=== PATIENT | female | born 1940 | race Caucasian/White ===

== ENCOUNTER 2022-08-22 11:47 | Emergency (ER) | payer MEDICARE ==
--- NOTE | 2022-08-22 11:55 | ERPHSYRPT ---
- History of Present Illness Time Seen by Provider: 08/22/22 11:54 Source: patient, family Exam Limitations: no limitations Physician History: This is an 82-year-old white female patient of Dr. Xiao who has a history of seasonal allergies and 4 days ago she began having some coughing issues. She was seen in outpatient clinic and it appears that she was given an injection of Kenalog and possibly an antibiotic injection. No other medications were provided to her or prescribed her per patient's spouse report patient does not ordinarily talk. Her main issue is coughing and shortness of breath while she is coughing. She denies abdominal pain. She denies chest pain. She has not had any vomiting or diarrhea. However, patient's spouse states that she has had a decrease in her appetite and oral intake Timing/Duration: day(s) (4) Severity: mild (To moderate) Modifying Factors: Improves With: nothing Associated Symptoms: shortness of breath (When coughing), cough, No nausea, No vomiting, No abdominal pain, No chest pain Allergies/Adverse Reactions: azithromycin [From Zithromax Z-Ankit] Allergy (Severe, Verified 08/22/22 11:59) Tightness of Throat Penicillins Allergy (Severe, Verified 08/22/22 11:59) Tightness of Throat xanthan gum Allergy (Verified 08/22/22 12:04) xylitol Allergy (Verified 08/22/22 12:04) Home Medications: Cetirizine HCl [Zyrtec] 5 mg PO DAILY 05/24/16 [History] Clotrimazole/Betamethasone Dip [Clotrimazole-Betamethasone Crm] 15 gm TP DAILY 05/24/16 [History] Diphenhydramine HCl 25 mg [Benadryl 25 mg Capsule] 50 mg PO Q4-6HPRN PRN 05/24/16 [History] Montelukast Sodium 10 mg PO DAILY 05/24/16 [History] Nystatin 500,000 unit PO 5XD 05/24/16 [History] Tetrahydrozoline HCl [Eye Drops] 15 ml OP DAILY 05/24/16 [History] EPINEPHrine [Epipen] 0.3 ml SQ UD PRN 05/30/16 [History] Calcium Carb, Citrate/Vit D3 [Calcium + D3 ER Tablet] 1 tab PO BID 08/22/22 [History] Levocetirizine Dihydrochloride [Xyzal] 1 tab PO DAILY 08/22/22 [History] Mecobalamin [B12 Active] 1 tab PO BID 08/22/22 [History] Metformin HCl 500 mg [Glucophage 500 MG] 1 tab PO BID 08/22/22 [History] Simvastatin 10 mg [Zocor 10MG] 1 tab PO DAILY 08/22/22 [History] Vit C/E/Zn/Coppr/Lutein/Zeaxan [Preservision Areds 2 Softgel] 1 cap PO BID 08/22/22 [History] Travel Risk - International Travel Have you traveled outside of the country in past 3 weeks: No - Coronavirus Screening Are you exhibiting any of the following symptoms?: Yes Symptoms: Cough: New Onset, Shortness of Breath (When coughing) Close contact with a COVID-19 positive Pt in past 14-21 Days: No - Review of Systems Constitutional: Weakness Eyes: No Symptoms Ears, Nose, & Throat: Hoarse Respiratory: Cough Cardiac: No Symptoms, No Chest Pain Abdominal/Gastrointestinal: Appetite Changes, No Abdominal Pain, No Nausea, No Vomiting, No Diarrhea Genitourinary Symptoms: No Symptoms Musculoskeletal: No Symptoms Skin: No Symptoms Neurological: No Symptoms Psychological: No Symptoms Endocrine: No Symptoms Hematologic/Lymphatic: No Symptoms Immunological/Allergic: No Symptoms All Other Systems: Reviewed and Negative - Past Medical History Pertinent Past Medical History: Yes Neurological History: No Pertinent History ENT History: No Pertinent History Cardiac History: No Pertinent History Respiratory History: Other Endocrine Medical History: No Pertinent History Musculoskeletal History: No Pertinent History GI Medical History: No Pertinent History History: No Pertinent History Psycho-Social History: No Pertinent History Female Reproductive Disorders: No Pertinent History Other Medical History: pt has severe allergies. - Past Surgical History Past Surgical History: Yes Neuro Surgical History: No Pertinent History Cardiac: No Pertinent History Respiratory: No Pertinent History Gastrointestinal: Appendectomy Genitourinary: No Pertinent History Musculoskeletal: No Pertinent History Female Surgical History: Hysterectomy, Other Other Surgical History: Anterior and posterior colphoraphy - Social History Smoking Status: Never smoker Exposure to second hand smoke: No Drug Use: none - Nursing Vital Signs Nursing Vital Signs: Initial Vital Signs Temperature 97.9 F 08/22/22 12:04 Pulse Rate 90 08/22/22 12:04 Respiratory Rate 24 08/22/22 12:04 Blood Pressure 125/54 08/22/22 12:04 O2 Sat by Pulse Oximetry 95 08/22/22 12:04 Pain Scale Pain Intensity 0 - Physical Exam General Appearance: no apparent distress, alert, anxiety Eye Exam: PERRL/EOMI, eyes nml inspection Ears, Nose, Throat Exam: normal ENT inspection, moist mucous membranes Neck Exam: normal inspection, non-tender Respiratory Exam: normal breath sounds, lungs clear, airway intact, No chest tenderness, No respiratory distress Cardiovascular Exam: regular rate/rhythm, normal heart sounds, normal peripheral pulses Gastrointestinal/Abdomen Exam: soft, normal bowel sounds, No tenderness Pelvic Exam: not done Rectal Exam: not done Back Exam: normal inspection, normal range of motion, No CVA tenderness, No vertebral tenderness Extremity Exam: normal inspection, normal range of motion, pelvis stable Neurologic Exam: alert, oriented x 3, cooperative, environmental resource specialist II-XII nml as tested, normal mood/affect, nml cerebellar function, nml station & gait, sensation nml Skin Exam: normal color, warm, dry Lymphatic Exam: No adenopathy SpO2 Interpretation: normal O2 Delivery: Room Air Ordered Tests: Active Orders 24 hr Category Date Time Status Senior Lead Project Manager STAT Care 08/22/22 12:20 Active IV Insertion STAT Care 08/22/22 12:20 Active Pulse Oximetry (ED) STAT Care 08/22/22 12:20 Active CHEST 1 VIEW (PORTABLE) Stat Exams 08/22/22 12:20 Completed BLOOD CULTURE Stat Lab 08/22/22 12:35 Received CBC W DIFF Stat Lab 08/22/22 13:20 Completed CMP Stat Lab 08/22/22 13:00 Completed Manual Differential NC Stat Lab 08/22/22 13:20 Completed NT PRO BNPII Stat Lab 08/22/22 13:00 Completed UA W/RFX UR CULTURE Stat Lab 08/22/22 14:18 Completed Medication Summary Generic Name Dose Route Start Last Admin Trade Name Freq PRN Reason Stop Dose Admin Sodium Chloride 1,000 mls @ 100 mls/hr 08/22/22 12:30 08/22/22 16:06 Sodium Chloride 0.9% 1000 Ml IV 09/21/22 12:29 999 mls/hr .Q10H LELA Infusion Sodium Chloride 500 mls @ 50 mls/hr 08/22/22 15:45 Sodium Chloride 0.9% 500 Ml IV 09/21/22 15:44 .Q10H LELA Discontinued Medications Generic Name Dose Route Start Last Admin Trade Name [place] PRN Reason Stop Dose Admin Hydrocodone Bitart/Acetaminophen 5 ml 08/22/22 12:21 08/22/22 12:28 Hydrocodone/Acetaminophen 5 Ml Udcup PO 08/22/22 12:22 5 ml STAT STA Administration Hydrocodone Bitart/Acetaminophen Confirm 08/22/22 12:25 Hydrocodone/Acetaminophen 5 Ml Udcup Administered 08/22/22 12:26 Dose 5 ml .ROUTE .STK-MED ONE Methylprednisolone Sodium 0 mg 08/22/22 12:20 08/22/22 12:27 Succinate 125 mg/ Sterile IV 08/22/22 12:21 125 mg Water 2 ml STAT ONE Administration Sodium Chloride 1,000 mls @ 999 mls/hr 08/22/22 15:16 08/22/22 15:44 Sodium Chloride 0.9% 1000 Ml IV 08/22/22 16:16 Not Given .Q1H1M STA Levofloxacin 500 mg 08/22/22 16:20 Levofloxacin 500 Mg Tablet PO 08/22/22 16:21 STAT ONE Methylprednisolone Sodium Succinate Confirm 08/22/22 12:25 Methylprednis Sod Succ 125 Mg/2 Ml Vial Administered 08/22/22 12:26 Dose 125 mg .ROUTE .STK-MED ONE Potassium Chloride 10 meq 08/22/22 16:26 Potassium Chloride Tab 10 Meq Tab PO 08/22/22 16:27 STAT ONE Sterile Water Confirm 08/22/22 12:25 Water For Injection,Sterile 10 Ml Vial Administered 08/22/22 12:26 Dose 10 ml IJ .STK-MED ONE Lab/Rad Data: Laboratory Result Diagrams 08/22/22 13:20 08/22/22 13:00 Laboratory Results 08/22/22 08/22/22 08/22/22 Range/Units 14:18 13:20 13:00 WBC 13.6 H (4.0-10.5) x10^3/uL RBC 4.26 (4.1-5.4) x10^6/uL Hgb 12.7 (12.0-16.0) g/dL Hct 37.3 (35-47) % MCV 87.6 (78-100) fL MCH 29.8 (26-32) pg MCHC 34.0 (32-36) g/dL RDW 12.2 (11.5-14.0) % Plt Count 553 H (150-450) x10^3/uL MPV 9.8 (7.5-11.0) fL Segmented Neutrophils 71 H (36.0-66.0) % Band Neutrophils 3 H (0.0-2.0) % Lymphocytes (Manual) 12 L (24-44) % Monocytes (Manual) 13 H (0.0-12.0) % Eosinophils (Manual) 1 (0.00-3.0) % Platelet Estimate INCREASED (NORMAL) RBC Morphology NORMAL Sodium (137-145) mmol/L Potassium (3.5-5.1) mmol/L Chloride (98-107) mmol/L Carbon Dioxide (22-30) mmol/L Anion Gap (5-15) MEQ/L BUN (7-17) mg/dL Creatinine (0.52-1.04) mg/dL Estimated GFR ML/MIN Glucose (74-106) mg/dL Calcium (8.4-10.2) mg/dL Total Bilirubin (0.2-1.3) mg/dL AST (14-36) U/L ALT (0-35) U/L Alkaline Phosphatase (38-126) U/L NT-Pro-B Natriuret Pep (<300) pg/mL Serum Total Protein (6.3-8.2) g/dL Albumin (3.5-5.0) g/dL Urine Color Yellow (Yellow) Urine Appearance Clear (Clear) Urine pH 5.5 (4.6-8.0) Ur Specific [place] 1.015 (1.005-1.030) Urine Protein 30 (Negative) Urine Glucose (UA) Negative (Negative) mg/dL Urine Ketones 40 A (Negative) Urine Blood Negative (Negative) Urine Nitrite Negative (Negative) Urine Bilirubin Negative (Negative) Urine Urobilinogen 1.0 A (0.2) mg/dL Ur Leukocyte Esterase Trace A (Negative) U Hyaline Cast (Auto) 3-5 A (0-2) /LPF Urine Microscopic RBC 0-2 (0-5) /HPF Urine Microscopic WBC 0-2 (0-5) /HPF Ur Epithelial Cells Few (None Seen) /HPF Urine Bacteria None Seen (None Seen) /HPF Urine Culture Reflexed NO (NO) Influenza Type A Ag NEGATIVE (NEGATIVE) Influenza Type B Ag NEGATIVE (NEGATIVE) RSV (PCR) NEGATIVE (Negative) SARS-CoV-2 (PCR) NEGATIVE (NEGATIVE) 08/22/22 08/22/22 Range/Units 13:00 13:00 WBC (4.0-10.5) x10^3/uL RBC (4.1-5.4) x10^6/uL Hgb (12.0-16.0) g/dL Hct (35-47) % MCV (78-100) fL MCH (26-32) pg MCHC (32-36) g/dL RDW (11.5-14.0) % Plt Count (150-450) x10^3/uL MPV (7.5-11.0) fL Segmented Neutrophils (36.0-66.0) % Band Neutrophils (0.0-2.0) % Lymphocytes (Manual) (24-44) % Monocytes (Manual) (0.0-12.0) % Eosinophils (Manual) (0.00-3.0) % Platelet Estimate (NORMAL) RBC Morphology Sodium 129 L (137-145) mmol/L Potassium 3.2 L (3.5-5.1) mmol/L Chloride 92 L (98-107) mmol/L Carbon Dioxide 19 L (22-30) mmol/L Anion Gap 22.1 H (5-15) MEQ/L BUN 29 H (7-17) mg/dL Creatinine 0.84 (0.52-1.04) mg/dL Estimated GFR > 60.0 ML/MIN Glucose 108 H (74-106) mg/dL Calcium 9.7 (8.4-10.2) mg/dL Total Bilirubin 1.00 (0.2-1.3) mg/dL AST 35 (14-36) U/L ALT 29 (0-35) U/L Alkaline Phosphatase 106 (38-126) U/L NT-Pro-B Natriuret Pep 5770 (<300) pg/mL Serum Total Protein 7.8 (6.3-8.2) g/dL Albumin 3.8 (3.5-5.0) g/dL Urine Color (Yellow) Urine Appearance (Clear) Urine pH (4.6-8.0) Ur Specific [place] (1.005-1.030) Urine Protein (Negative) Urine Glucose (UA) (Negative) mg/dL Urine Ketones (Negative) Urine Blood (Negative) Urine Nitrite (Negative) Urine Bilirubin (Negative) Urine Urobilinogen (0.2) mg/dL Ur Leukocyte Esterase (Negative) U Hyaline Cast (Auto) (0-2) /LPF Urine Microscopic RBC (0-5) /HPF Urine Microscopic WBC (0-5) /HPF Ur Epithelial Cells (None Seen) /HPF Urine Bacteria (None Seen) /HPF Urine Culture Reflexed (NO) Influenza Type A Ag (NEGATIVE) Influenza Type B Ag (NEGATIVE) RSV (PCR) (Negative) SARS-CoV-2 (PCR) (NEGATIVE) - Progress Progress: improved Progress Note: 08/22/22 13:37 Chest x-ray radiology report reviewed by me. There is bilateral mid to lower lung airspace disease without consolidation or effusions. 08/22/22 16:21 Patient is tolerating clear liquid diet. This patient's medical issue is 1 of moderate complexity. The patient past medical history, medication list, and medication allergy list was reviewed. The work-up was based on the above as well as taking into consideration the history of present illness and physical findings on physical examination. The work-up included placement as of IV line, intravenous fluid infusion, drawing CBC, CMP, performing a chest x-ray and obtaining viral swabs. I reviewed all the results of all the studies that were performed. Based on this we opted to give the patient more intravenous fluids, give her oral fluid challenge and place her on oral Levaquin. She is to continue the oral Levaquin as an outpatient. We will also provide her with a prescription for hydrocodone elixir to help with her cough. Counseled pt/family regarding: lab results, diagnosis, need for follow-up, rad results Medical Desision Making - Independent Historian Additional History obtained from: Spouse - Discussion of managment Reviewed:: Test results Agreed on:: Treatment plan, need for follow-up - Diagnostic Testing Diagnostic test were ordered, analyzed, and reviewed by me: Yes Radiological Interpretation: Interpreted by me, Reviewed by me, Teleradiologist Report - Risk of complications Minimal Risk: Minimal risk of morbidity Low Risk: Low risk of morbidity from additional dx testing or treatment The pt has a mod risk of morbidity or mortality based on: Need for prescription drug management - Departure Departure Disposition: Home Clinical Impression: Bilateral pulmonary infiltrates on CXR Condition: Stable Critical Care Time: No Referrals: SACHIN XIAO [Primary Care Provider] - Follow up/PCP as directed Instructions: Pneumonia in Adults Additional Instructions: Drink plenty of clear liquids prior to advancing your diet. Take your medication as prescribed. Follow-up with your primary care provider for further evaluation and management. Prescriptions: Hydrocodone/Acetaminophen [Hydrocodone-Acetamn 7.5-325/15] 5 ml PO Q12H PRN PRN #30 ml MDD 10 ml PRN Reason: Cough Levofloxacin [Levaquin 500 MG Tablet] 500 mg PO DAILY #7 tablet
[2022-08-22] MEDS ORDERED: solu-MEDROL 125 MG, Sterile H2O 10 ml 2 ML IV ONE ×2 (12:20)
[2022-08-22] MEDS ORDERED: HYDROCODONE-ACETAMIN 2.5-108/5 ML SOLUTION PO STA (12:21)
[2022-08-22] MEDS ORDERED: Sterile H2O 10 ml IJ ONE (12:25)
[2022-08-22] MEDS ORDERED: HYDROCODONE-ACETAMIN 2.5-108/5 ML SOLUTION ONE (12:25)
[2022-08-22] MEDS ORDERED: solu-MEDROL ONE (12:25)
[2022-08-22] MEDS ORDERED: Sodium Chloride 0.9% 1000 ML 1,000 ML ONE (12:25)
[2022-08-22] MEDS ORDERED: Sodium Chloride 0.9% 1000 ML 1,000 ML IV SCH (12:30)
--- NOTE | 2022-08-22 13:04 | XRAY ---
Indication: Cough. Comparison: None Portable chest demonstrates bilateral mid to lower lung airspace disease without consolidation/large effusion. Incidental right base calcified granuloma. Heart not enlarged. Bony thorax intact with osteopenia.
[2022-08-22 13:14] LABS: Hematocrit 37.3 % (35-47); Hemoglobin 12.7 g/dL (12.0-16.0); Mean Cell Volume 87.6 fL (78-100); Mean Corpuscular Hemoglobin 29.8 pg (26-32); Mean Platelet Volume 9.8 fL (7.5-11.0); Platelet Count 553 x10^3/uL (150-450); Red Blood Count 4.26 x10^6/uL (4.1-5.4); Red Cell Distribution Width 12.2 % (11.5-14.0); White Blood Count 13.6 x10^3/uL (4.0-10.5)
[2022-08-22 13:32] LABS: ALBUMIN 3.8 g/dL (3.5-5.0); ALKALINE PHOSPHATASE 106 U/L (38-126); ANION GAP 22.1 MEQ/L (5-15); BLOOD UREA NITROGEN 29 mg/dL (7-17); CHLORIDE 92 mmol/L (98-107); Calcium 9.7 mg/dL (8.4-10.2); Carbon Dioxide 19 mmol/L (22-30); Creatinine 1 0.84 mg/dL (0.52-1.04); EST GLOMERULAR FILTRATION RATE > 60.0 ML/MIN; Glucose 108 mg/dL (74-106); Potassium 3.2 mmol/L (3.5-5.1); SGOT/AST 35 U/L (14-36); SGPT/ALT 29 U/L (0-35); SODIUM 129 mmol/L (137-145); Total Protein 7.8 g/dL (6.3-8.2)
[2022-08-22 14:00] LABS: INFLUENZA A NEGATIVE (NEGATIVE); INFLUENZA B NEGATIVE (NEGATIVE); RESPIRATORY SYNCTIAL VIRUS NEGATIVE (Negative); SARS-CoV-2 Xpert Express NEGATIVE (NEGATIVE)
[2022-08-22 14:39] LABS: Appearance Clear (Clear); Bacteria None Seen /HPF (None Seen); Bilirubin Negative (Negative); Blood Negative (Negative); Epithelial Cells Few /HPF (None Seen); Glucose, Urine Negative (Negative); Ketones 40 (Negative); Leukocyte Esterase Trace (Negative); Nitrite Negative (Negative); Ph 5.5 (4.6-8.0); Protein,Urine Dip 30 (Negative); RBC 0-2 /HPF (0-5); Specific Gravity 1.015 (1.005-1.030); WBC 0-2 /HPF (0-5)
[2022-08-22 15:00] LABS: ADD URINE CULTURE? NO (NO)
[2022-08-22] MEDS ORDERED: Sodium Chloride 0.9% 1000 ML 1,000 ML IV STA (15:16)
[2022-08-22 15:17] LABS: BAND 3 % (0.0-2.0); Eosinophil 1 % (0.00-3.0); Lymphocytes 12 % (24-44); Monocyte 13 % (0.0-12.0); Neutrophils 71 % (36.0-66.0); Platelet Estimate INCREASED (NORMAL); Total Cells Counted 100
[2022-08-22] MEDS ORDERED: Sodium Chloride 0.9% 500 ML 500 ML IV SCH (15:45)
[2022-08-22] MEDS ORDERED: Sodium Chloride 0.9% 500 ML 500 ML IV ONE (15:59)
[2022-08-22] MEDS ORDERED: Levofloxacin 500 MG Tablet PO ONE (16:20)
[2022-08-22] MEDS ORDERED: Klor Con PO ONE ×2 (16:26→16:50)
[2022-08-22] MEDS ORDERED: Levofloxacin 500 MG Tablet ONE (16:49)
[2022-08-22 17:11] VITALS: BP 122/58; PULSE 82; O2SAT 95
== END 2022-08-22 17:54 | disposition home or self-care (01) ==
LOC: ED 11:47
DX: R91.8 Other nonspecific abnormal finding of lung field (principal); R05.1 Acute cough; R06.02 Shortness of breath; Z79.891 Long term (current) use of opiate analgesic; Z79.84 Long term (current) use of oral hypoglycemic drugs; Z79.899 Other long term (current) drug therapy
CPT/HCPCS: 0241U; 36000; 36415; 71045; 80053; 81001; 83880; 85025; 87040; 93041; 94760; 96360; 96374; 99284; J2930; A9270-GY

== ENCOUNTER 2022-08-25 16:11 | Inpatient (IN) | payer MEDICARE ==
[2022-08-25] MEDS ORDERED: DUONEB 0.5-3 MG/3 ml Neb IH ONE ×2 (16:37→16:39)
--- NOTE | 2022-08-25 16:49 | XRAY ---
Indication: Cough. Comparison: August 22, 2022 Portable chest demonstrates worsening diffuse bilateral airspace disease with new left lung patchy consolidations. Heart not enlarged. Bony thorax intact again without osteopenia.
[2022-08-25] MEDS ORDERED: Cardizem IV 50 MG/10 ML IV ONE ×3 (16:51→17:54)
[2022-08-25] MEDS ORDERED: ROCEPHIN 1 Gm-D5w 50 ml Bag** 1 G/50 ML IVPB IV STA (17:02)
[2022-08-25] MEDS ORDERED: ROCEPHIN 1 Gm-D5w 50 ml Bag** 1 G/50 ML IVPB IV ONE (17:03)
--- NOTE | 2022-08-25 17:10 | ERPHSYRPT ---
- History of Present Illness Source: patient, other () Exam Limitations: no limitations Patient Subjective Stated Complaint: Pt was here 2 days ago for a cough and returns again today, pt is unable to keep her oxygen up and was placed on 3L NC Triage Nursing Assessment: Pt was brought to the ER by her , tachycardic, hypoxic, rates pain as 5/10 in the chest when she coughs, weak, placed on 3L NC but does not wear oxygen at home, is taking Levofloxacin that was prescribed a couple of days ago but has ran out of the hydrocodone cough syrup, states that she does get up some sputum and it is clear, no edema, pulses normal, denies N&V Physician History: 82 yo WF w worsening cough and increasing dyspnea. Dyspnea is worse w exertion. Pt was seen in the ER on 08/22/22 and diagnosed w pneumonia. She was started on Levaquin. Symptoms started 15 days ago. Pt denies chest pain/nausea/vomiting/diarrhea/fever/melena/hematochezia. Timing/Duration: other (15 days) Cough Quality/Degree: productive cough Possible Cause: occasional episodes Modifying Factors: Improves With: activity, coughing Associated Symptoms: shortness of breath Allergies/Adverse Reactions: azithromycin [From Zithromax Z-Ankit] Allergy (Severe, Verified 08/25/22 16:36) Tightness of Throat Penicillins Allergy (Severe, Verified 08/25/22 16:36) Tightness of Throat xanthan gum Allergy (Verified 08/25/22 16:36) xylitol Allergy (Verified 08/25/22 16:36) Home Medications: Cetirizine HCl [Zyrtec] 5 mg PO DAILY 05/24/16 [History] Clotrimazole/Betamethasone Dip [Clotrimazole-Betamethasone Crm] 15 gm TP DAILY 05/24/16 [History] Diphenhydramine HCl 25 mg [Benadryl 25 mg Capsule] 50 mg PO Q4-6HPRN PRN 05/24/16 [History] Montelukast Sodium 10 mg PO DAILY 05/24/16 [History] Nystatin 500,000 unit PO 5XD 05/24/16 [History] Tetrahydrozoline HCl [Eye Drops] 15 ml OP DAILY 05/24/16 [History] EPINEPHrine [Epipen] 0.3 ml SQ UD PRN 05/30/16 [History] Calcium Carb, Citrate/Vit D3 [Calcium + D3 ER Tablet] 1 tab PO BID 08/22/22 [History] Levocetirizine Dihydrochloride [Xyzal] 1 tab PO DAILY 08/22/22 [History] Mecobalamin [B12 Active] 1 tab PO BID 08/22/22 [History] Metformin HCl 500 mg [Glucophage 500 MG] 1 tab PO BID 08/22/22 [History] Simvastatin 10 mg [Zocor 10MG] 1 tab PO DAILY 08/22/22 [History] Vit C/E/Zn/Coppr/Lutein/Zeaxan [Preservision Areds 2 Softgel] 1 cap PO BID 08/22/22 [History] Hx Tetanus, Diphtheria Vaccination/Date Given: Yes Hx Influenza Vaccination/Date Given: Yes Hx Pneumococcal Vaccination/Date Given: Yes Travel Risk - International Travel Have you traveled outside of the country in past 3 weeks: No - Coronavirus Screening Are you exhibiting any of the following symptoms?: Yes Symptoms: Cough: New Onset Close contact with a COVID-19 positive Pt in past 14-21 Days: No - Vaccine Status Have you recieved a Covid-19 vaccination: Yes 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 - Review of Systems Constitutional: No Symptoms, Fatigue, Malaise Eyes: No Symptoms Ears, Nose, & Throat: No Symptoms Respiratory: No Symptoms, Cough, Dyspnea, Dyspnea on Exertion (BLOCK) Cardiac: No Symptoms Abdominal/Gastrointestinal: No Symptoms Genitourinary Symptoms: No Symptoms Musculoskeletal: No Symptoms Skin: No Symptoms Neurological: No Symptoms Psychological: No Symptoms Endocrine: No Symptoms Hematologic/Lymphatic: No Symptoms Immunological/Allergic: No Symptoms - Past Medical History Pertinent Past Medical History: Yes Neurological History: No Pertinent History ENT History: No Pertinent History Cardiac History: No Pertinent History Respiratory History: Other Endocrine Medical History: No Pertinent History Musculoskeletal History: No Pertinent History GI Medical History: No Pertinent History History: No Pertinent History Psycho-Social History: No Pertinent History Female Reproductive Disorders: No Pertinent History Other Medical History: pt has severe allergies. - Past Surgical History Past Surgical History: Yes Neuro Surgical History: No Pertinent History Cardiac: No Pertinent History Respiratory: No Pertinent History Gastrointestinal: Appendectomy Genitourinary: No Pertinent History Musculoskeletal: No Pertinent History Female Surgical History: Hysterectomy, Other Other Surgical History: Anterior and posterior colphoraphy - Social History Smoking Status: Never smoker Exposure to second hand smoke: No Drug Use: none Patient Lives Alone: No - Nursing Vital Signs Nursing Vital Signs: Initial Vital Signs Temperature 96.7 F 08/25/22 16:21 Pulse Rate 159 H 08/25/22 16:21 Blood Pressure 128/83 08/25/22 16:21 O2 Sat by Pulse Oximetry 85 L 08/25/22 16:21 Pain Scale Pain Intensity 0 Hypoxic/Tachy-afib w RVR - Physical Exam General Appearance: mild distress Eye Exam: PERRL/EOMI, eyes nml inspection Ears, Nose, Throat Exam: normal ENT inspection, TMs normal, pharynx normal, moist mucous membranes Neck Exam: normal inspection, non-tender, supple, full range of motion, No meningismus, No mass, No Brudzinski, No Kernig's Respiratory Exam: crackles/rales (Rales 3/4 on R, 1/4 on L) Cardiovascular Exam: other (Afib w RVR(Ir-Ir)) Gastrointestinal/Abdomen Exam: soft, normal bowel sounds, No tenderness Back Exam: normal inspection, normal range of motion, No CVA tenderness, No vertebral tenderness Extremity Exam: normal inspection, normal range of motion Neurologic Exam: alert, oriented x 3, cooperative, 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, normal mood/affect, sensation nml, No motor deficits, No sensory deficit Skin Exam: normal color, warm, dry Lymphatic Exam: No adenopathy SpO2 Interpretation: hypoxic SpO2: 95 O2 Delivery: Nasal Cannula - Course Nursing assessment & vital signs reviewed: Yes EKG Interpreted by Me: RATE (Afib w RVR/Rate 144/Normal QT-Qtc/Non-specific ST-T wave changes) - Radiology Exams Chest X-ray Interpretation: Reviewed by me (Worsening B LL infiltrates), Discussed w/ radiologist - CT Exams Chest CT Interpretation: Discussed w/radiologist (B lower lobe infiltrates and effusions) Ordered Tests: Active Orders 24 hr Category Date Time Status Bedrest TOLERATED Activity 08/25/22 22:30 Active Admit as Inpatient ROUTINE Care 08/25/22 22:39 Active EKG-ER Only STAT Care 08/25/22 16:20 Active POCT Glucose Check ACHS Care 08/25/22 22:29 Active Telemetry PROTOCOL Care 08/25/22 22:30 Active Heart-Healthy Diet Diet 08/26/22 Breakfast Active CHEST 1 VIEW (PORTABLE) Routine Exams 08/25/22 22:29 Ordered CHEST 1 VIEW (PORTABLE) Stat Exams 08/25/22 16:21 Completed CHEST WITH CONTRAST [CT] Stat Exams 08/25/22 19:31 Completed ECHO W/2D AND DOPPLER [US] Stat Exams 08/25/22 22:36 Ordered ABG [ARTERIAL BLOOD GASES] Stat Lab 08/25/22 20:51 Completed BLOOD CULTURE Stat Lab 08/25/22 17:50 Received CBC W DIFF AM.LAB Lab 08/26/22 04:00 Ordered CBC W DIFF Stat Lab 08/25/22 17:05 Completed CMP AM.LAB Lab 08/26/22 04:00 Ordered CMP Stat Lab 08/25/22 17:05 Completed CULTURE,URINE Stat Lab 08/25/22 17:30 Received D-DIMER QUANTITATIVE Stat Lab 08/25/22 18:50 Completed Lactic Acid Stat Lab 08/25/22 16:45 Completed Manual Differential NC Stat Lab 08/25/22 17:05 Completed NT PRO BNPII AM.LAB Lab 08/26/22 04:00 Ordered NT PRO BNPII Stat Lab 08/25/22 17:05 Completed PROTIME WITH INR Stat Lab 08/25/22 17:05 Completed PTT Stat Lab 08/25/22 17:05 Completed Sputum Culture [CULTURE,SPUTUM] Stat Lab 08/25/22 Ordered TROPONIN Q4H Lab 08/25/22 17:05 Completed TROPONIN Q4H Lab 08/25/22 21:00 Completed TROPONIN Q4H Lab 08/26/22 00:30 Ordered UA W/RFX UR CULTURE Stat Lab 08/25/22 17:30 Completed Respiratory Therapy Assessment DAILY RT 08/25/22 17:03 Active Transfer Order Routine Transfer 08/25/22 Ordered Medication Summary Generic Name Dose Route Start Last Admin Trade Name Freq PRN Reason Stop Dose Admin Acetaminophen 650 mg 08/25/22 22:29 Acetaminophen 325 Mg Tablet PO 09/24/22 22:28 Q4H PRN PRN PAIN, FEVER, HEADACHE Albuterol/Ipratropium 3 ml 08/25/22 22:29 Ipratropium/Albuterol Sulfate 3 Ml Ampul.Neb 09/25/22 00:59 Q6HRT PRN SHORTNESS OF BREATH/WHEEZING Benzonatate 100 mg 08/25/22 23:00 Benzonatate 100 Mg Capsule PO 08/30/22 23:01 TID PRN LELA Docusate Sodium 100 mg 08/25/22 22:29 Docusate Sodium 100 Mg Capsule PO 09/24/22 22:28 BIDPRN PRN CONSTIPATION Enoxaparin Sodium 60 mg 08/26/22 10:00 Enoxaparin Sodium 40 Mg/0.4 Ml Syringe SQ 09/25/22 09:59 BID LELA Furosemide 20 mg 08/26/22 21:13 08/25/22 21:36 Furosemide 20 Mg/Vial IV 08/26/22 21:14 20 mg ONCE ONE Administration Doxycycline Hyclate 100 mg/ 100 mls @ 100 mls/hr 08/25/22 17:36 08/25/22 18:04 Dextrose IV 09/24/22 17:35 100 mls/hr Q12HT LELA Administration Diltiazem HCl 100 mls @ 5 mls/hr 08/25/22 18:37 08/25/22 20:43 Cardizem Drip 100 Mg/100 Ml D5w IV 09/24/22 18:36 10 mg/hr .Q20H PRN 10 mls/hr HEART RATE/ A-FIB Titration Protocol 5 MG/HR Cefepime HCl 2 g/ Dextrose 100 mls @ 200 mls/hr 08/25/22 22:45 IV 09/01/22 22:44 Q8H [facility] Vancomycin HCl 1 gm/ Sodium 250 mls @ 125 mls/hr 08/25/22 23:00 Chloride IV 09/01/22 22:59 Q12H [facility] Insulin Human Regular 0 unit 08/25/22 22:29 Insulin Regular, Human 1 Unit SQ 09/24/22 22:28 UD PRN HYPERGLYCEMIA Magnesium Hydroxide 30 ml 08/25/22 22:29 Magnesium Hydroxide 30 Ml Udcup PO 09/24/22 22:28 HS PRN PRN CONSTIPATION Metoprolol Tartrate 25 mg 08/25/22 22:36 Metoprolol Tartrate 25 Mg Tab PO 09/24/22 22:35 BID LELA Discontinued Medications Generic Name Dose Route Start Last Admin Trade Name Freq PRN Reason Stop Dose Admin Albuterol/Ipratropium 3 ml 08/25/22 16:37 08/25/22 16:52 Ipratropium/Albuterol Sulfate 3 Ml Ampul.Neb IH 08/25/22 16:38 3 ml STAT ONE Administration Albuterol/Ipratropium Confirm 08/25/22 16:39 Ipratropium/Albuterol Sulfate 3 Ml Ampul.Neb Administered 08/25/22 16:40 Dose 3 ml IH .STK-MED ONE Digoxin 0.25 mg 08/25/22 20:24 08/25/22 20:31 Digoxin 0.5 Mg/2 Ml Injection IV 08/25/22 20:25 0.25 mg STAT ONE Administration Digoxin Confirm 08/25/22 20:28 Digoxin 0.5 Mg/2 Ml Injection Administered 08/25/22 20:29 Dose 0.5 mg .ROUTE .STK-MED ONE Digoxin 0.25 mg 08/25/22 21:10 Digoxin 0.5 Mg/2 Ml Injection IV 08/25/22 21:11 STAT ONE Digoxin 0.25 mg 08/25/22 21:29 08/25/22 22:40 Digoxin 0.5 Mg/2 Ml Injection IV 08/25/22 21:30 Not Given STAT ONE Diltiazem HCl 10 mg 08/25/22 16:51 08/25/22 16:54 Diltiazem Hcl Iv 5 Mg/Ml Vial IV 08/25/22 16:52 10 mg STAT ONE Administration Diltiazem HCl Confirm 08/25/22 16:52 Diltiazem Hcl Iv 5 Mg/Ml Vial Administered 08/25/22 16:53 Dose 50 mg IV .STK-MED ONE Diltiazem HCl 10 mg 08/25/22 17:54 08/25/22 18:03 Diltiazem Hcl Iv 5 Mg/Ml Vial IV 08/25/22 17:55 10 mg STAT ONE Administration Doxycycline Hyclate Confirm 08/25/22 17:54 Doxycycline Hyclate 100 Mg/Vial Injection Administered 08/25/22 17:55 Dose 100 mg IV .STK-MED ONE Enoxaparin Sodium 60 mg 08/25/22 22:04 08/25/22 22:56 Enoxaparin Sodium 60 Mg/0.6 Ml Syringe SQ 08/25/22 22:05 60 mg STAT ONE Administration Furosemide Confirm 08/25/22 21:34 Furosemide 20 Mg/Vial Administered 08/25/22 21:35 Dose 20 mg .ROUTE .STK-MED ONE Ceftriaxone Sodium/Dextrose 1 g in 50 mls @ 100 mls/hr 08/25/22 17:02 08/25/22 17:41 Rocephin 1 Gm-D5w 50 Ml Bag IV 08/25/22 17:31 Infused STAT STA Infusion Ceftriaxone Sodium/Dextrose Confirm 08/25/22 17:03 Rocephin 1 Gm-D5w 50 Ml Bag Administered 08/25/22 17:04 Dose 1 g in 50 mls @ ud IV .STK-MED ONE Doxycycline Hyclate 100 mg/ 100 mls @ 100 mls/hr 08/25/22 22:00 Dextrose IV 09/24/22 21:59 Q12HT LELA Dextrose Confirm 08/25/22 17:54 D5w 100ml Mini Bag 100 Ml Administered 08/25/22 17:55 Dose 100 mls @ ud IV .STK-MED ONE Potassium Chloride 40 meq 08/25/22 21:59 08/25/22 22:19 Potassium Chloride Tab 10 Meq Tab PO 08/25/22 22:00 40 meq STAT ONE Administration Potassium Chloride Confirm 08/25/22 22:18 Potassium Chloride Tab 10 Meq Tab Administered 08/25/22 22:19 Dose 40 meq PO .STK-MED ONE Lab/Rad Data: Laboratory Result Diagrams 08/25/22 17:05 08/25/22 17:05 Laboratory Results 08/25/22 08/25/22 08/25/22 Range/Units 21:00 20:51 18:50 WBC (4.0-10.5) x10^3/uL RBC (4.1-5.4) x10^6/uL Hgb (12.0-16.0) g/dL Hct (35-47) % MCV (78-100) fL MCH (26-32) pg MCHC (32-36) g/dL RDW (11.5-14.0) % Plt Count (150-450) x10^3/uL MPV (7.5-11.0) fL Segmented Neutrophils (36.0-66.0) % Lymphocytes (Manual) (24-44) % Monocytes (Manual) (0.0-12.0) % Eosinophils (Manual) (0.00-3.0) % Toxic Granulation Platelet Estimate (NORMAL) RBC Morphology Anisocytosis PT (9.4-12.5) SECONDS INR (0.8-3.0) APTT (25.1-36.5) SECONDS D-Dimer 2.46 H* (0.0-0.50) mg/L Puncture Site RIGHT BRACHIAL pCO2 24 L (35-45) mmHg pO2 66 L (75-100) mmHg Base Excess 3.1 H (-2.0-2.0) O2 Saturation 94.6 (94-100) g/dF ABG pH 7.60 H* (7.35-7.45) ABG HCO3 23.6 (22-28) ABG O2 Sat (Measured) 95.6 (95-100) % Sal Test NOT APPLICABLE A-a Gradient 218 a/A Ratio 0.23 Hemoglobin 11.9 Carboxyhemoglobin 0.7 (0.0-6.9) % THgb Methemoglobin 0.3 L (1.4-1.5) % Temperature 37.0 C POC O2 Flow Rate 44 % Sodium (137-145) mmol/L Potassium 3.0 L (3.5-5.1) mmol/L Chloride (98-107) mmol/L Carbon Dioxide (22-30) mmol/L Anion Gap (5-15) MEQ/L BUN (7-17) mg/dL Creatinine (0.52-1.04) mg/dL Estimated GFR ML/MIN Glucose (74-106) mg/dL Lactic Acid (0.4-2.0) Calcium (8.4-10.2) mg/dL Total Bilirubin (0.2-1.3) mg/dL AST (14-36) U/L ALT (0-35) U/L Alkaline Phosphatase (38-126) U/L Troponin I < 0.012 (0.000-0.034) ng/mL NT-Pro-B Natriuret Pep (<300) pg/mL Serum Total Protein (6.3-8.2) g/dL Albumin (3.5-5.0) g/dL Urine Color (Yellow) Urine Appearance (Clear) Urine pH (4.6-8.0) Ur Specific [place] (1.005-1.030) Urine Protein (Negative) Urine Glucose (UA) (Negative) mg/dL Urine Ketones (Negative) Urine Blood (Negative) Urine Nitrite (Negative) Urine Bilirubin (Negative) Urine Urobilinogen (0.2) mg/dL Ur Leukocyte Esterase (Negative) U Hyaline Cast (Auto) (0-2) /LPF Urine Microscopic RBC (0-5) /HPF Urine Microscopic WBC (0-5) /HPF Ur Epithelial Cells (None Seen) /HPF Urine Bacteria (None Seen) /HPF Urine Culture Reflexed (NO) Influenza Type A Ag (NEGATIVE) Influenza Type B Ag (NEGATIVE) RSV (PCR) (Negative) SARS-CoV-2 (PCR) (NEGATIVE) 08/25/22 08/25/22 08/25/22 Range/Units 17:30 17:05 17:05 WBC (4.0-10.5) x10^3/uL RBC (4.1-5.4) x10^6/uL Hgb (12.0-16.0) g/dL Hct (35-47) % MCV (78-100) fL MCH (26-32) pg MCHC (32-36) g/dL RDW (11.5-14.0) % Plt Count (150-450) x10^3/uL MPV (7.5-11.0) fL Segmented Neutrophils (36.0-66.0) % Lymphocytes (Manual) (24-44) % Monocytes (Manual) (0.0-12.0) % Eosinophils (Manual) (0.00-3.0) % Toxic Granulation Platelet Estimate (NORMAL) RBC Morphology Anisocytosis PT (9.4-12.5) SECONDS INR (0.8-3.0) APTT (25.1-36.5) SECONDS D-Dimer (0.0-0.50) mg/L Puncture Site pCO2 (35-45) mmHg pO2 (75-100) mmHg Base Excess (-2.0-2.0) O2 Saturation (94-100) g/dF ABG pH (7.35-7.45) ABG HCO3 (22-28) ABG O2 Sat (Measured) (95-100) % Sal Test A-a Gradient a/A Ratio Hemoglobin Carboxyhemoglobin (0.0-6.9) % THgb Methemoglobin (1.4-1.5) % Temperature C POC O2 Flow Rate % Sodium (137-145) mmol/L Potassium (3.5-5.1) mmol/L Chloride (98-107) mmol/L Carbon Dioxide (22-30) mmol/L Anion Gap (5-15) MEQ/L BUN (7-17) mg/dL Creatinine (0.52-1.04) mg/dL Estimated GFR ML/MIN Glucose (74-106) mg/dL Lactic Acid (0.4-2.0) Calcium (8.4-10.2) mg/dL Total Bilirubin (0.2-1.3) mg/dL AST (14-36) U/L ALT (0-35) U/L Alkaline Phosphatase (38-126) U/L Troponin I (0.000-0.034) ng/mL NT-Pro-B Natriuret Pep 4720 (<300) pg/mL Serum Total Protein (6.3-8.2) g/dL Albumin (3.5-5.0) g/dL Urine Color Yellow (Yellow) Urine Appearance Clear (Clear) Urine pH 6.0 (4.6-8.0) Ur Specific [place] 1.015 (1.005-1.030) Urine Protein 30 (Negative) Urine Glucose (UA) Negative (Negative) mg/dL Urine Ketones 40 A (Negative) Urine Blood Moderate A (Negative) Urine Nitrite Negative (Negative) Urine Bilirubin Negative (Negative) Urine Urobilinogen 1.0 A (0.2) mg/dL Ur Leukocyte Esterase Negative (Negative) U Hyaline Cast (Auto) 3-5 A (0-2) /LPF Urine Microscopic RBC 6-10 A (0-5) /HPF Urine Microscopic WBC 0-2 (0-5) /HPF Ur Epithelial Cells None Seen (None Seen) /HPF Urine Bacteria None Seen (None Seen) /HPF Urine Culture Reflexed YES (NO) Influenza Type A Ag NEGATIVE (NEGATIVE) Influenza Type B Ag NEGATIVE (NEGATIVE) RSV (PCR) NEGATIVE (Negative) SARS-CoV-2 (PCR) NEGATIVE (NEGATIVE) 08/25/22 08/25/22 08/25/22 Range/Units 17:05 17:05 17:05 WBC (4.0-10.5) x10^3/uL RBC (4.1-5.4) x10^6/uL Hgb (12.0-16.0) g/dL Hct (35-47) % MCV (78-100) fL MCH (26-32) pg MCHC (32-36) g/dL RDW (11.5-14.0) % Plt Count (150-450) x10^3/uL MPV (7.5-11.0) fL Segmented Neutrophils (36.0-66.0) % Lymphocytes (Manual) (24-44) % Monocytes (Manual) (0.0-12.0) % Eosinophils (Manual) (0.00-3.0) % Toxic Granulation Platelet Estimate (NORMAL) RBC Morphology Anisocytosis PT 11.9 (9.4-12.5) SECONDS INR 1.10 (0.8-3.0) APTT 27.6 (25.1-36.5) SECONDS D-Dimer (0.0-0.50) mg/L Puncture Site pCO2 (35-45) mmHg pO2 (75-100) mmHg Base Excess (-2.0-2.0) O2 Saturation (94-100) g/dF ABG pH (7.35-7.45) ABG HCO3 (22-28) ABG O2 Sat (Measured) (95-100) % Sal Test A-a Gradient a/A Ratio Hemoglobin Carboxyhemoglobin (0.0-6.9) % THgb Methemoglobin (1.4-1.5) % Temperature C POC O2 Flow Rate % Sodium 128 L (137-145) mmol/L Potassium 3.2 L (3.5-5.1) mmol/L Chloride 95 L (98-107) mmol/L Carbon Dioxide 22 (22-30) mmol/L Anion Gap 14.2 (5-15) MEQ/L BUN 10 (7-17) mg/dL Creatinine 0.54 (0.52-1.04) mg/dL Estimated GFR > 60.0 ML/MIN Glucose 182 H (74-106) mg/dL Lactic Acid (0.4-2.0) Calcium 8.5 (8.4-10.2) mg/dL Total Bilirubin 0.60 (0.2-1.3) mg/dL AST 53 H (14-36) U/L ALT 60 H (0-35) U/L Alkaline Phosphatase 82 (38-126) U/L Troponin I < 0.012 (0.000-0.034) ng/mL NT-Pro-B Natriuret Pep (<300) pg/mL Serum Total Protein 6.6 (6.3-8.2) g/dL Albumin 3.2 L (3.5-5.0) g/dL Urine Color (Yellow) Urine Appearance (Clear) Urine pH (4.6-8.0) Ur Specific [place] (1.005-1.030) Urine Protein (Negative) Urine Glucose (UA) (Negative) mg/dL Urine Ketones (Negative) Urine Blood (Negative) Urine Nitrite (Negative) Urine Bilirubin (Negative) Urine Urobilinogen (0.2) mg/dL Ur Leukocyte Esterase (Negative) U Hyaline Cast (Auto) (0-2) /LPF Urine Microscopic RBC (0-5) /HPF Urine Microscopic WBC (0-5) /HPF Ur Epithelial Cells (None Seen) /HPF Urine Bacteria (None Seen) /HPF Urine Culture Reflexed (NO) Influenza Type A Ag (NEGATIVE) Influenza Type B Ag (NEGATIVE) RSV (PCR) (Negative) SARS-CoV-2 (PCR) (NEGATIVE) 08/25/22 08/25/22 Range/Units 17:05 16:45 WBC 21.1 H (4.0-10.5) x10^3/uL RBC 4.00 L (4.1-5.4) x10^6/uL Hgb 12.0 (12.0-16.0) g/dL Hct 37.1 (35-47) % MCV 92.8 (78-100) fL MCH 30.0 (26-32) pg MCHC 32.3 (32-36) g/dL RDW 12.3 (11.5-14.0) % Plt Count 502 H (150-450) x10^3/uL MPV 9.3 (7.5-11.0) fL Segmented Neutrophils 78 H (36.0-66.0) % Lymphocytes (Manual) 15 L (24-44) % Monocytes (Manual) 6 (0.0-12.0) % Eosinophils (Manual) 1 (0.00-3.0) % Toxic Granulation 3+ Platelet Estimate INCREASED (NORMAL) RBC Morphology ABNORMAL Anisocytosis 1+ PT (9.4-12.5) SECONDS INR (0.8-3.0) APTT (25.1-36.5) SECONDS D-Dimer (0.0-0.50) mg/L Puncture Site pCO2 (35-45) mmHg pO2 (75-100) mmHg Base Excess (-2.0-2.0) O2 Saturation (94-100) g/dF ABG pH (7.35-7.45) ABG HCO3 (22-28) ABG O2 Sat (Measured) (95-100) % Sal Test A-a Gradient a/A Ratio Hemoglobin Carboxyhemoglobin (0.0-6.9) % THgb Methemoglobin (1.4-1.5) % Temperature C POC O2 Flow Rate % Sodium (137-145) mmol/L Potassium (3.5-5.1) mmol/L Chloride (98-107) mmol/L Carbon Dioxide (22-30) mmol/L Anion Gap (5-15) MEQ/L BUN (7-17) mg/dL Creatinine (0.52-1.04) mg/dL Estimated GFR ML/MIN Glucose (74-106) mg/dL Lactic Acid 1.9 (0.4-2.0) Calcium (8.4-10.2) mg/dL Total Bilirubin (0.2-1.3) mg/dL AST (14-36) U/L ALT (0-35) U/L Alkaline Phosphatase (38-126) U/L Troponin I (0.000-0.034) ng/mL NT-Pro-B Natriuret Pep (<300) pg/mL Serum Total Protein (6.3-8.2) g/dL Albumin (3.5-5.0) g/dL Urine Color (Yellow) Urine Appearance (Clear) Urine pH (4.6-8.0) Ur Specific [place] (1.005-1.030) Urine Protein (Negative) Urine Glucose (UA) (Negative) mg/dL Urine Ketones (Negative) Urine Blood (Negative) Urine Nitrite (Negative) Urine Bilirubin (Negative) Urine Urobilinogen (0.2) mg/dL Ur Leukocyte Esterase (Negative) U Hyaline Cast (Auto) (0-2) /LPF Urine Microscopic RBC (0-5) /HPF Urine Microscopic WBC (0-5) /HPF Ur Epithelial Cells (None Seen) /HPF Urine Bacteria (None Seen) /HPF Urine Culture Reflexed (NO) Influenza Type A Ag (NEGATIVE) Influenza Type B Ag (NEGATIVE) RSV (PCR) (Negative) SARS-CoV-2 (PCR) (NEGATIVE) - Progress Progress Note: 08/25/22 22:[address] Lopez 08/25/22 23:01 Nursing note and vital signs reviewed No food or housing insecurities noted Pt is a full code Additional history per O2 per nasal canula placed on pt immediately to raise O2 sats Afibs w RVR treated w 10mg IV Cardizem x2/Cardizem drip/Digoxin 0.25mg IV w adequate rate control Blood cultures x2/1gm IV Rocephin/100mg IV doxycycline Pt placed on 7L oximizer w improvement in Sats Hypokalemia 40mEq po x1 20mg IV Lasix Pt w severe pneumonia per CXR and CT 60mg sq Lovenox Counseled pt/family regarding: lab results, diagnosis, rad results - Departure Departure Disposition: In-patient Admission Clinical Impression: Pneumonia, New onset a-fib Condition: Stable Critical Care Time: Yes Critical Care Time(excluding separately billable procedures): Critical 30-74 mins Referrals: SACHIN CEDILLO [Primary Care Provider] - Follow up/PCP as directed
[2022-08-25] MEDS ORDERED: VIBRAMYCIN 100 MG*** 100 MG in Dextrose 5%/Water IV Soln. 100ML PLUS BAG 100 ML IV SCH ×2 (17:36→22:00)
[2022-08-25 17:51] LABS: INFLUENZA A NEGATIVE (NEGATIVE); INFLUENZA B NEGATIVE (NEGATIVE); RESPIRATORY SYNCTIAL VIRUS NEGATIVE (Negative); SARS-CoV-2 Xpert Express NEGATIVE (NEGATIVE)
[2022-08-25] MEDS ORDERED: VIBRAMYCIN 100 MG IV ONE (17:54)
[2022-08-25] MEDS ORDERED: D5w 100ML Mini Bag 100 ML 100 ML IV ONE (17:54)
[2022-08-25 18:18] LABS: Hematocrit 37.1 % (35-47); Mean Cell Volume 92.8 fL (78-100); Mean Corpuscular Hgb Concent. 32.3 g/dL (32-36); Mean Platelet Volume 9.3 fL (7.5-11.0); Platelet Count 502 x10^3/uL (150-450); Red Cell Distribution Width 12.3 % (11.5-14.0); White Blood Count 21.1 x10^3/uL (4.0-10.5)
[2022-08-25 18:34] LABS: ALBUMIN 3.2 g/dL (3.5-5.0); ALKALINE PHOSPHATASE 82 U/L (38-126); ANION GAP 14.2 MEQ/L (5-15); BLOOD UREA NITROGEN 10 mg/dL (7-17); CHLORIDE 95 mmol/L (98-107); Calcium 8.5 mg/dL (8.4-10.2); Carbon Dioxide 22 mmol/L (22-30); Creatinine 1 0.54 mg/dL (0.52-1.04); EST GLOMERULAR FILTRATION RATE > 60.0 ML/MIN; Glucose 182 mg/dL (74-106); Potassium 3.2 mmol/L (3.5-5.1); SGOT/AST 53 U/L (14-36); SGPT/ALT 60 U/L (0-35); SODIUM 128 mmol/L (137-145); Total Protein 6.6 g/dL (6.3-8.2)
[2022-08-25 18:36] LABS: INR 1.1 (0.8-3.0); PROTIME 11.9 SECONDS (9.4-12.5); PTT 27.6 SECONDS (25.1-36.5)
[2022-08-25] MEDS ORDERED: CARDIZEM DRIP 100 MG/100 ML D5W 100 ML IV PRN (18:37)
[2022-08-25] MEDS ORDERED: CARDIZEM DRIP 100 MG/100 ML D5W 100 ML IV ONE (19:09)
[2022-08-25 19:16] LABS: Eosinophil 1 % (0.00-3.0); Lymphocytes 15 % (24-44); Monocyte 6 % (0.0-12.0); Neutrophils 78 % (36.0-66.0); Total Cells Counted 100; Toxic Granulation 3+
[2022-08-25 19:17] LABS: ADD URINE CULTURE? YES (NO); Appearance Clear (Clear); Bacteria None Seen /HPF (None Seen); Bilirubin Negative (Negative); Blood Moderate (Negative); Epithelial Cells None Seen /HPF (None Seen); Glucose, Urine Negative (Negative); Ketones 40 (Negative); Leukocyte Esterase Negative (Negative); Nitrite Negative (Negative); Protein,Urine Dip 30 (Negative); Specific Gravity 1.015 (1.005-1.030); WBC 0-2 /HPF (0-5)
[2022-08-25 19:18] LABS: ANISOCYTOSIS 1+; Platelet Estimate INCREASED (NORMAL)
[2022-08-25] MEDS ORDERED: Lanoxin 0.5 MG/2 ML INJECTION IV ONE ×3 (20:24→21:29)
[2022-08-25] MEDS ORDERED: Lanoxin 0.5 MG/2 ML INJECTION ONE (20:28)
[2022-08-25 20:57] LABS: A-aADO2 218; ABG HEMOGLOBIN 11.9; ARTERIAL BLD GAS O2 SATURATION 95.6 % (95-100); ARTERIAL BLOOD GAS BASE EXCESS 3.1 (-2.0-2.0); ARTERIAL BLOOD GAS FIO2 44 %; ARTERIAL BLOOD GAS PCO2 24 mmHg (35-45); ARTERIAL BLOOD GAS PO2 66 mmHg (75-100); CARBOXYHEMOGLOBIN 0.7 % THgb (0.0-6.9); HCO3- 23.6 (22-28); HGB O2 SAT 94.6 g/dF (94-100); Methhemoglobin 0.3 % (1.4-1.5); paO2 pAO1 0.23
[2022-08-25 20:59] LABS: ABG SITE RIGHT BRACHIAL
--- NOTE | 2022-08-25 21:07 | XRAY ---
Indication: Chest pain, short of breath, cough. Pneumonia. Elevated d-dimer. Multiple contiguous axial images obtained through the chest using 80 cc of Isovue-370 contrast and PE protocol. Comparison: None Good opacification of the pulmonary arteries. However diffuse respiration artifact limits evaluation for pulmonary embolus. No obvious central pulmonary embolus. Heart not enlarged. Aorta is mildly arteriosclerotic without aneurysm/dissection. No pathologic mediastinal/hilar lymphadenopathy. Small hiatal hernia. Lungs demonstrates diffuse consolidating and nonconsolidated bilateral airspace disease greatest in both lower lobes. Small left and tiny right effusions. Bony thorax intact. Limited upper abdomen demonstrates fatty liver. Impression: 1. Pulmonary embolus evaluation limited by respiration artifact. No obvious central pulmonary embolus. 2. Diffuse bilateral patchy consolidating/nonconsolidating airspace disease with bilateral effusions. Findings consistent with chest radiograph. 3. Incidental fatty liver.
[2022-08-25] MEDS ORDERED: Lasix 20 MG/2 ML ONE (21:34)
[2022-08-25] MEDS ORDERED: Klor Con PO ONE ×2 (21:59→22:18)
[2022-08-25] MEDS ORDERED: ENOXAPARIN SODIUM SQ ONE (22:04)
--- NOTE | 2022-08-25 22:22 | PCM.HP ---
History of Present Illness - Chief Complaint Chief Complaint: Shortness of breath, cough Date: 08/25/22 History of Present Illness: This is an 82-year-old female admitted for A-fib with RVR and pneumonia. She has past medical history of [id number] diabetes, hyperlipidemia, environmental allergies.She presented to the ED this evening for increased shortness of breath. She had been seen in the ER 08/22 at which time she was started on Levaquin for pneumonia. She reports that despite antibiotics he has had worsening fatigue and essentially nonproductive cough she reports some shortness of breath with cough but does not feel short of breath when she is ambulating. She denies any chest pain or palpitations other than what is associated with her cough. On arrival to the ED she was afebrile, heart rate 130s, blood pressure 115/40, 89% on 5 L nasal cannula Labs significant for WBC 21, D-dimer 2.4, ABG seven-point 12/16/1965, sodium 128, potassium 3.2, glucose 182, AST 53, ALT 60, troponin negative, BNP 4728, UA significant for ketones, blood and RBCs; influenza A, B, RSV PCR, COVID PCR all negative. CT angio of chest was obtained that was negative for PE but was suboptimal study does have bilateral patchy consolidation and 6 small bilateral effusions in the ED she received Cardizem drip for RVR, doxycycline, digoxin, Lasix 20 mg IV. - Review of Systems Constitutional: Fatigue, Malaise, Weakness Eyes: No Symptoms Ears, Nose, & Throat: No Symptoms Respiratory: Cough Cardiac: No Symptoms Abdominal/Gastrointestinal: No Symptoms Genitourinary Symptoms: No Symptoms Musculoskeletal: No Symptoms Skin: No Symptoms Neurological: No Symptoms Endocrine: No Symptoms Medications & Allergies Home Medications: Home Medication List Cetirizine HCl [Zyrtec] 5 mg PO DAILY 05/24/16 [History Confirmed 08/25/22] Clotrimazole/Betamethasone Dip [Clotrimazole-Betamethasone Crm] 15 gm TP DAILY 05/24/16 [History Confirmed 08/25/22] Diphenhydramine HCl 25 mg [Benadryl 25 mg Capsule] 50 mg PO Q4-6HPRN PRN 05/24/16 [History Confirmed 08/25/22] Montelukast Sodium 10 mg PO DAILY 05/24/16 [History Confirmed 08/25/22] Nystatin 500,000 unit PO 5XD 05/24/16 [History Confirmed 08/25/22] Tetrahydrozoline HCl [Eye Drops] 15 ml OP DAILY 05/24/16 [History Confirmed 08/25/22] EPINEPHrine [Epipen] 0.3 ml SQ UD PRN 05/30/16 [History Confirmed 08/25/22] Calcium Carb, Citrate/Vit D3 [Calcium + D3 ER Tablet] 1 tab PO BID 08/22/22 [History Confirmed 08/25/22] Levocetirizine Dihydrochloride [Xyzal] 1 tab PO DAILY 08/22/22 [History Confirmed 08/25/22] Levofloxacin [Levaquin 500 MG Tablet] 500 mg PO DAILY #7 tablet 08/22/22 [Rx Confirmed 08/25/22] Mecobalamin [B12 Active] 1 tab PO BID 08/22/22 [History Confirmed 08/25/22] Metformin HCl 500 mg [Glucophage 500 MG] 1 tab PO BID 08/22/22 [History Confirmed 08/25/22] Simvastatin 10 mg [Zocor 10MG] 1 tab PO DAILY 08/22/22 [History Confirmed 0 08/25/22] Vit C/E/Zn/Coppr/Lutein/Zeaxan [Preservision Areds 2 Softgel] 1 cap PO BID 08/22/22 [History Confirmed 08/25/22] Allergies/Adverse Reactions: Allergies Allergy/AdvReac Type Severity Reaction Status Date / Time azithromycin Allergy Severe Tightness Verified 08/25/22 16:36 [From Zithromax Z-Ankit] of Throat Penicillins Allergy Severe Tightness Verified 08/25/22 16:36 of Throat xanthan gum Allergy Verified 08/25/22 16:36 xylitol Allergy Verified 08/25/22 16:36 - Past Medical History Past Medical History: Yes (Per HPI) Neurological History: No Pertinent History ENT History: No Pertinent History Cardiac History: No Pertinent History Respiratory History: Other Endocrine Medical History: No Pertinent History Musculoskelatal History: No Pertinent History GI Medical History: No Pertinent History History: No Pertinent History Pyscho-Social History: No Pertinent History Reproductive Disorders: No Pertinent History Comment: pt has severe allergies. - Past Surgical History Past Surgical History: Yes Neuro Surgical History: No Pertinent History Cardiac History: No Pertinent History Respiratory Surgery: No Pertinent History GI Surgical History: Appendectomy Genitourinary Surgical Hx: No Pertinent History Musculskeletal Surgical Hx: No Pertinent History Female Surgical History: Hysterectomy, Other Other Surgical History: Anterior and posterior colphoraphy - Social History Smoking Status: Never smoker Exposure to second hand smoke: No Alcohol: None Drug Use: none - Physical Exam Vital Signs: Vital Signs - 24 hr Temp Pulse Resp BP BP Pulse Ox 08/25/22 22:06 95 08/25/22 22:06 105 H 30 H 123/75 95 08/25/22 21:31 105 H 20 123/75 92 L 08/25/22 20:43 144 H 20 124/75 08/25/22 20:30 113 H 24 121/57 89 L 08/25/22 20:16 121 H 21 117/60 08/25/22 19:30 147 H 18 117/60 96 08/25/22 19:19 129 H 26 H 128/67 08/25/22 19:07 138 H 28 H 112/71 96 08/25/22 18:06 132 H 24 115/40 89 L 08/25/22 17:43 147 H 18 121/75 98 08/25/22 17:03 144 H 20 95 08/25/22 16:21 96.7 F 159 H 128/83 94 L Results - Labs Lab/Micro Results: Lab Results-Last 24 Hours 08/25/22 08/25/22 08/25/22 Range/Units 16:45 17:05 17:05 WBC 21.1 H (4.0-10.5) x10^3/uL RBC 4.00 L (4.1-5.4) x10^6/uL Hgb 12.0 (12.0-16.0) g/dL Hct 37.1 (35-47) % MCV 92.8 (78-100) fL MCH 30.0 (26-32) pg MCHC 32.3 (32-36) g/dL RDW 12.3 (11.5-14.0) % Plt Count 502 H (150-450) x10^3/uL MPV 9.3 (7.5-11.0) fL Segmented Neutrophils 78 H (36.0-66.0) % Lymphocytes (Manual) 15 L (24-44) % Monocytes (Manual) 6 (0.0-12.0) % Eosinophils (Manual) 1 (0.00-3.0) % Toxic Granulation 3+ Platelet Estimate INCREASED (NORMAL) RBC Morphology ABNORMAL Anisocytosis 1+ PT (9.4-12.5) SECONDS INR (0.8-3.0) APTT (25.1-36.5) SECONDS D-Dimer (0.0-0.50) mg/L Puncture Site pCO2 (35-45) mmHg pO2 (75-100) mmHg Base Excess (-2.0-2.0) O2 Saturation (94-100) g/dF ABG pH (7.35-7.45) ABG HCO3 (22-28) ABG O2 Sat (Measured) (95-100) % Sal Test A-a Gradient a/A Ratio Hemoglobin Carboxyhemoglobin (0.0-6.9) % THgb Methemoglobin (1.4-1.5) % Temperature C POC O2 Flow Rate % Sodium 128 L (137-145) mmol/L Potassium 3.2 L (3.5-5.1) mmol/L Chloride 95 L (98-107) mmol/L Carbon Dioxide 22 (22-30) mmol/L Anion Gap 14.2 (5-15) MEQ/L BUN 10 (7-17) mg/dL Creatinine 0.54 (0.52-1.04) mg/dL Estimated GFR > 60.0 ML/MIN Glucose 182 H (74-106) mg/dL Lactic Acid 1.9 (0.4-2.0) Calcium 8.5 (8.4-10.2) mg/dL Total Bilirubin 0.60 (0.2-1.3) mg/dL AST 53 H (14-36) U/L ALT 60 H (0-35) U/L Alkaline Phosphatase 82 (38-126) U/L Troponin I (0.000-0.034) ng/mL NT-Pro-B Natriuret Pep (<300) pg/mL Serum Total Protein 6.6 (6.3-8.2) g/dL Albumin 3.2 L (3.5-5.0) g/dL Urine Color (Yellow) Urine Appearance (Clear) Urine pH (4.6-8.0) Ur Specific [place] (1.005-1.030) Urine Protein (Negative) Urine Glucose (UA) (Negative) mg/dL Urine Ketones (Negative) Urine Blood (Negative) Urine Nitrite (Negative) Urine Bilirubin (Negative) Urine Urobilinogen (0.2) mg/dL Ur Leukocyte Esterase (Negative) U Hyaline Cast (Auto) (0-2) /LPF Urine Microscopic RBC (0-5) /HPF Urine Microscopic WBC (0-5) /HPF Ur Epithelial Cells (None Seen) /HPF Urine Bacteria (None Seen) /HPF Urine Culture Reflexed (NO) Influenza Type A Ag (NEGATIVE) Influenza Type B Ag (NEGATIVE) RSV (PCR) (Negative) SARS-CoV-2 (PCR) (NEGATIVE) 08/25/22 08/25/22 08/25/22 Range/Units 17:05 17:05 17:05 WBC (4.0-10.5) x10^3/uL RBC (4.1-5.4) x10^6/uL Hgb (12.0-16.0) g/dL Hct (35-47) % MCV (78-100) fL MCH (26-32) pg MCHC (32-36) g/dL RDW (11.5-14.0) % Plt Count (150-450) x10^3/uL MPV (7.5-11.0) fL Segmented Neutrophils (36.0-66.0) % Lymphocytes (Manual) (24-44) % Monocytes (Manual) (0.0-12.0) % Eosinophils (Manual) (0.00-3.0) % Toxic Granulation Platelet Estimate (NORMAL) RBC Morphology Anisocytosis PT 11.9 (9.4-12.5) SECONDS INR 1.10 (0.8-3.0) APTT 27.6 (25.1-36.5) SECONDS D-Dimer (0.0-0.50) mg/L Puncture Site pCO2 (35-45) mmHg pO2 (75-100) mmHg Base Excess (-2.0-2.0) O2 Saturation (94-100) g/dF ABG pH (7.35-7.45) ABG HCO3 (22-28) ABG O2 Sat (Measured) (95-100) % Sal Test A-a Gradient a/A Ratio Hemoglobin Carboxyhemoglobin (0.0-6.9) % THgb Methemoglobin (1.4-1.5) % Temperature C POC O2 Flow Rate % Sodium (137-145) mmol/L Potassium (3.5-5.1) mmol/L Chloride (98-107) mmol/L Carbon Dioxide (22-30) mmol/L Anion Gap (5-15) MEQ/L BUN (7-17) mg/dL Creatinine (0.52-1.04) mg/dL Estimated GFR ML/MIN Glucose (74-106) mg/dL Lactic Acid (0.4-2.0) Calcium (8.4-10.2) mg/dL Total Bilirubin (0.2-1.3) mg/dL AST (14-36) U/L ALT (0-35) U/L Alkaline Phosphatase (38-126) U/L Troponin I < 0.012 (0.000-0.034) ng/mL NT-Pro-B Natriuret Pep 4720 (<300) pg/mL Serum Total Protein (6.3-8.2) g/dL Albumin (3.5-5.0) g/dL Urine Color (Yellow) Urine Appearance (Clear) Urine pH (4.6-8.0) Ur Specific [place] (1.005-1.030) Urine Protein (Negative) Urine Glucose (UA) (Negative) mg/dL Urine Ketones (Negative) Urine Blood (Negative) Urine Nitrite (Negative) Urine Bilirubin (Negative) Urine Urobilinogen (0.2) mg/dL Ur Leukocyte Esterase (Negative) U Hyaline Cast (Auto) (0-2) /LPF Urine Microscopic RBC (0-5) /HPF Urine Microscopic WBC (0-5) /HPF Ur Epithelial Cells (None Seen) /HPF Urine Bacteria (None Seen) /HPF Urine Culture Reflexed (NO) Influenza Type A Ag (NEGATIVE) Influenza Type B Ag (NEGATIVE) RSV (PCR) (Negative) SARS-CoV-2 (PCR) (NEGATIVE) 08/25/22 08/25/22 08/25/22 Range/Units 17:05 17:30 18:50 WBC (4.0-10.5) x10^3/uL RBC (4.1-5.4) x10^6/uL Hgb (12.0-16.0) g/dL Hct (35-47) % MCV (78-100) fL MCH (26-32) pg MCHC (32-36) g/dL RDW (11.5-14.0) % Plt Count (150-450) x10^3/uL MPV (7.5-11.0) fL Segmented Neutrophils (36.0-66.0) % Lymphocytes (Manual) (24-44) % Monocytes (Manual) (0.0-12.0) % Eosinophils (Manual) (0.00-3.0) % Toxic Granulation Platelet Estimate (NORMAL) RBC Morphology Anisocytosis PT (9.4-12.5) SECONDS INR (0.8-3.0) APTT (25.1-36.5) SECONDS D-Dimer 2.46 H* (0.0-0.50) mg/L Puncture Site pCO2 (35-45) mmHg pO2 (75-100) mmHg Base Excess (-2.0-2.0) O2 Saturation (94-100) g/dF ABG pH (7.35-7.45) ABG HCO3 (22-28) ABG O2 Sat (Measured) (95-100) % Sal Test A-a Gradient a/A Ratio Hemoglobin Carboxyhemoglobin (0.0-6.9) % THgb Methemoglobin (1.4-1.5) % Temperature C POC O2 Flow Rate % Sodium (137-145) mmol/L Potassium (3.5-5.1) mmol/L Chloride (98-107) mmol/L Carbon Dioxide (22-30) mmol/L Anion Gap (5-15) MEQ/L BUN (7-17) mg/dL Creatinine (0.52-1.04) mg/dL Estimated GFR ML/MIN Glucose (74-106) mg/dL Lactic Acid (0.4-2.0) Calcium (8.4-10.2) mg/dL Total Bilirubin (0.2-1.3) mg/dL AST (14-36) U/L ALT (0-35) U/L Alkaline Phosphatase (38-126) U/L Troponin I (0.000-0.034) ng/mL NT-Pro-B Natriuret Pep (<300) pg/mL Serum Total Protein (6.3-8.2) g/dL Albumin (3.5-5.0) g/dL Urine Color Yellow (Yellow) Urine Appearance Clear (Clear) Urine pH 6.0 (4.6-8.0) Ur Specific [place] 1.015 (1.005-1.030) Urine Protein 30 (Negative) Urine Glucose (UA) Negative (Negative) mg/dL Urine Ketones 40 A (Negative) Urine Blood Moderate A (Negative) Urine Nitrite Negative (Negative) Urine Bilirubin Negative (Negative) Urine Urobilinogen 1.0 A (0.2) mg/dL Ur Leukocyte Esterase Negative (Negative) U Hyaline Cast (Auto) 3-5 A (0-2) /LPF Urine Microscopic RBC 6-10 A (0-5) /HPF Urine Microscopic WBC 0-2 (0-5) /HPF Ur Epithelial Cells None Seen (None Seen) /HPF Urine Bacteria None Seen (None Seen) /HPF Urine Culture Reflexed YES (NO) Influenza Type A Ag NEGATIVE (NEGATIVE) Influenza Type B Ag NEGATIVE (NEGATIVE) RSV (PCR) NEGATIVE (Negative) SARS-CoV-2 (PCR) NEGATIVE (NEGATIVE) 08/25/22 08/25/22 Range/Units 20:51 21:00 WBC (4.0-10.5) x10^3/uL RBC (4.1-5.4) x10^6/uL Hgb (12.0-16.0) g/dL Hct (35-47) % MCV (78-100) fL MCH (26-32) pg MCHC (32-36) g/dL RDW (11.5-14.0) % Plt Count (150-450) x10^3/uL MPV (7.5-11.0) fL Segmented Neutrophils (36.0-66.0) % Lymphocytes (Manual) (24-44) % Monocytes (Manual) (0.0-12.0) % Eosinophils (Manual) (0.00-3.0) % Toxic Granulation Platelet Estimate (NORMAL) RBC Morphology Anisocytosis PT (9.4-12.5) SECONDS INR (0.8-3.0) APTT (25.1-36.5) SECONDS D-Dimer (0.0-0.50) mg/L Puncture Site RIGHT BRACHIAL pCO2 24 L (35-45) mmHg pO2 66 L (75-100) mmHg Base Excess 3.1 H (-2.0-2.0) O2 Saturation 94.6 (94-100) g/dF ABG pH 7.60 H* (7.35-7.45) ABG HCO3 23.6 (22-28) ABG O2 Sat (Measured) 95.6 (95-100) % Sal Test NOT APPLICABLE A-a Gradient 218 a/A Ratio 0.23 Hemoglobin 11.9 Carboxyhemoglobin 0.7 (0.0-6.9) % THgb Methemoglobin 0.3 L (1.4-1.5) % Temperature 37.0 C POC O2 Flow Rate 44 % Sodium (137-145) mmol/L Potassium 3.0 L (3.5-5.1) mmol/L Chloride (98-107) mmol/L Carbon Dioxide (22-30) mmol/L Anion Gap (5-15) MEQ/L BUN (7-17) mg/dL Creatinine (0.52-1.04) mg/dL Estimated GFR ML/MIN Glucose (74-106) mg/dL Lactic Acid (0.4-2.0) Calcium (8.4-10.2) mg/dL Total Bilirubin (0.2-1.3) mg/dL AST (14-36) U/L ALT (0-35) U/L Alkaline Phosphatase (38-126) U/L Troponin I < 0.012 (0.000-0.034) ng/mL NT-Pro-B Natriuret Pep (<300) pg/mL Serum Total Protein (6.3-8.2) g/dL Albumin (3.5-5.0) g/dL Urine Color (Yellow) Urine Appearance (Clear) Urine pH (4.6-8.0) Ur Specific [place] (1.005-1.030) Urine Protein (Negative) Urine Glucose (UA) (Negative) mg/dL Urine Ketones (Negative) Urine Blood (Negative) Urine Nitrite (Negative) Urine Bilirubin (Negative) Urine Urobilinogen (0.2) mg/dL Ur Leukocyte Esterase (Negative) U Hyaline Cast (Auto) (0-2) /LPF Urine Microscopic RBC (0-5) /HPF Urine Microscopic WBC (0-5) /HPF Ur Epithelial Cells (None Seen) /HPF Urine Bacteria (None Seen) /HPF Urine Culture Reflexed (NO) Influenza Type A Ag (NEGATIVE) Influenza Type B Ag (NEGATIVE) RSV (PCR) (Negative) SARS-CoV-2 (PCR) (NEGATIVE) - Radiology Impressions Radiology Exams & Impressions: Radiology Procedures Category Date Time Status CHEST 1 VIEW (PORTABLE) Stat Exams 08/25/22 16:21 Completed CHEST WITH CONTRAST [CT] Stat Exams 08/25/22 19:31 Completed - Other Procedures and Tests Respiratory Therapy 08/25/22 17:03 Respiratory Therapy Assessment DAILY Assessment/Plan (1) Sepsis Current Visit: Yes Status: Acute (2) Hypokalemia Current Visit: Yes Status: Acute Code(s): E87.6 - HYPOKALEMIA (3) New onset a-fib Current Visit: Yes Status: Acute Code(s): I48.91 - UNSPECIFIED ATRIAL FIBRILLATION (4) Pneumonia Current Visit: Yes Status: Acute Assessment & Plan: PHYSICAL EXAM: Gen: Alert and oriented, NAD Eyes: PERRL ENT: MMM CV: S1S2, tachy, irregular Pulm: On 5 L NC, no accessory muscle use Abd: Soft/nt/nd Extrem: No c/c/ce ASSESSMENT/PLAN #Sepsis secondary to pneumonia -Cefepime, vancomycin, doxycycline (3/-) -Gentle IV fluids in setting of cardiac decompensation -Follow cultures #A-fib with RVR, new onset -Check TSH. Troponin negative -Obtain echo -Start metoprolol p.o. -Cardizem drip to keep heart rate less than 110 -Full dose Lovenox #Hypokalemia -Repletion ordered #Hyponatremia, likely due to volume depletion -Gentle IV fluids -Follow sodium level #Diabetes -Sliding scale insulin #Hyperlipidemia #FEN cardiac diet Full code Prophylaxis: Lovenox Entire encounter performed via telemedicine Critical care time 60 minutes. Code(s): J18.9 - PNEUMONIA, UNSPECIFIED ORGANISM Telemedicine Encounter - Telemedicine Encounter Telemedicine Encounter: The entirety of this encounter was performed via Telemedicine"
[2022-08-25] MEDS ORDERED: MILK OF MAGNESIA 30 ML PO PRN (22:29)
[2022-08-25] MEDS ORDERED: HUMULIN R SQ PRN (22:29)
[2022-08-25] MEDS ORDERED: TYLENOL 325 MG PO PRN (22:29)
[2022-08-25] MEDS ORDERED: DUONEB 0.5-3 MG/3 ml Neb IH PRN (22:29)
[2022-08-25] MEDS ORDERED: Docusate Sodium 100 MG PO PRN (22:29)
[2022-08-25] MEDS ORDERED: Lopressor 25MG Tab PO SCH (22:36)
[2022-08-25] MEDS ORDERED: Maxipime 2 GM** 2 G in Dextrose 5%/Water IV Soln. 100ML PLUS BAG 100 ML IV SCH (22:45)
[2022-08-25] MEDS ORDERED: VANCOCIN INJECTION*** 1 GM in Sodium Chloride 0.9% 250 ML 250 ML IV SCH (23:00)
[2022-08-25] MEDS ORDERED: Tessalon Perles 100 MG PO SCH (23:00)
[2022-08-25] MEDS ORDERED: BENADRYL 25 MG CAPSULE PO PRN (23:47)
[2022-08-25] MEDS ORDERED: Sodium Chloride 0.9% W/ 20 mEq KCl/LITER 1,000 ML IV SCH (23:47)
[2022-08-26] MEDS ORDERED: DUONEB 0.5-3 MG/3 ml Neb IH ONE (00:25)
[2022-08-26] MEDS ORDERED: TYLENOL 325 MG PO PRN (00:31)
[2022-08-26] MEDS ORDERED: Docusate Sodium 100 MG PO PRN ×2 (00:34→12:29)
[2022-08-26] MEDS ORDERED: CARDIZEM DRIP 100 MG/100 ML D5W 100 ML IV PRN ×2 (00:34→02:43)
[2022-08-26] MEDS: DUONEB 0.5-3 MG/3 ml Neb IH PRN ×2 (00:35→09:37)
[2022-08-26] MEDS ORDERED: HUMULIN R SQ PRN ×2 (00:39→12:30)
[2022-08-26] MEDS ORDERED: MILK OF MAGNESIA 30 ML PO PRN (00:40)
[2022-08-26] MEDS ORDERED: Maxipime 2 GM** 2 G in Dextrose 5%/Water IV Soln. 100ML PLUS BAG 100 ML IV SCH ×3 (01:15→14:00)
[2022-08-26] MEDS ORDERED: VIBRAMYCIN 100 MG*** 100 MG in Dextrose 5%/Water IV Soln. 100ML PLUS BAG 100 ML IV SCH ×2 (02:00→22:00)
[2022-08-26] MEDS ORDERED: VANCOMYCIN 1 GRAM/200 ML BAG 1 GM/200 ML PIGGYBACK IV SCH ×2 (02:00→20:00)
[2022-08-26] MEDS: Lopressor 25MG Tab PO SCH ×2 (02:29→09:02)
[2022-08-26] MEDS ORDERED: Maxipime 2 GM ONE (02:36)
[2022-08-26] MEDS ORDERED: VIBRAMYCIN 100 MG IV ONE (02:36)
[2022-08-26] MEDS ORDERED: D5w 100ML Mini Bag 100 ML 200 ML IV ONE (02:37)
[2022-08-26] MEDS: Tessalon Perles 100 MG PO PRN ×2 (04:17→09:02)
[2022-08-26 04:18] LABS: ALBUMIN 2.5 g/dL (3.5-5.0); ALKALINE PHOSPHATASE 68 U/L (38-126); ANION GAP 13.2 MEQ/L (5-15); BLOOD UREA NITROGEN 9 mg/dL (7-17); CHLORIDE 96 mmol/L (98-107); Calcium 8.4 mg/dL (8.4-10.2); Carbon Dioxide 23 mmol/L (22-30); Creatinine 1 0.51 mg/dL (0.52-1.04); EST GLOMERULAR FILTRATION RATE > 60.0 ML/MIN; Glucose 162 mg/dL (74-106); NT PRO BNPII 4830 pg/mL (<300); Potassium 3.7 mmol/L (3.5-5.1); SGOT/AST 32 U/L (14-36); SGPT/ALT 49 U/L (0-35); SODIUM 129 mmol/L (137-145); Total Protein 5.3 g/dL (6.3-8.2)
[2022-08-26] MEDS ORDERED: CLARITIN 10 MG PO SCH (10:00)
[2022-08-26] MEDS ORDERED: ENOXAPARIN SODIUM SQ SCH ×2 (10:00)
[2022-08-26] MEDS ORDERED: Singulair 10 MG PO SCH (10:00)
--- NOTE | 2022-08-26 11:00 | PCM.NOTE ---
Date and Time: 08/26/22 1057 Subjective Assessment: ER reports and H&P reviewed - Review of Systems Constitutional: No Fever, No Chills Eyes: No Symptoms Ears, Nose, & Throat: No Symptoms Respiratory: Cough, Orthopnea, Short Of Breath Cardiac: Palpitations, No Chest Pain, No Edema, No Syncope Abdominal/Gastrointestinal: No Abdominal Pain, No Nausea, No Vomiting, No Diarrhea Genitourinary Symptoms: No Dysuria Musculoskeletal: No Back Pain, No Neck Pain Skin: No Rash Neurological: No Dizziness, No Focal Weakness, No Sensory Changes Psychological: No Symptoms Endocrine: No Symptoms Hematologic/Lymphatic: No Symptoms Immunological/Allergic: No Symptoms Objective Exam General Appearance: no apparent distress, alert Neurologic Exam: alert, oriented x 3, cooperative, normal mood/affect, nml cerebellar function, sensation nml, No motor deficits Skin Exam: normal color, warm, dry Eye Exam: PERRL, EOMI, eyes nml inspection Ears, Nose, Throat Exam: normal ENT inspection, pharynx normal, moist mucous membranes Neck Exam: normal inspection, non-tender, supple, full range of motion Respiratory Exam: diminished breath sounds, crackles/rales, rhonchi, No respiratory distress Cardiovascular Exam: irregular Gastrointestinal/Abdomen Exam: soft, No tenderness, No mass Extremity Exam: normal inspection, normal range of motion Back Exam: normal inspection, normal range of motion, No CVA tenderness, No vertebral tenderness Pelvic Exam: deferred Rectal Exam: deferred OBJECTIVE DATA Vital Signs: Vital Signs - 24 hr Temp Pulse Resp BP BP Pulse Ox 08/26/22 09:47 74 22 95 08/26/22 07:23 77 18 118/68 92 L 08/26/22 07:12 69 08/26/22 07:00 98.6 F 69 21 116/45 98 08/26/22 06:00 98 F 71 20 123/42 95 08/26/22 05:00 67 20 109/47 97 08/26/22 04:45 93 L 08/26/22 04:00 80 20 97/77 96 08/26/22 03:15 80 20 120/56 96 08/26/22 03:10 119 H 20 125/77 95 08/26/22 02:00 117 H 20 120/56 96 08/26/22 01:04 111 H 25 H 92 L 03/04/23 01:00 82 125/51 03/04/23 00:00 98.5 F 114 H 22 107/68 84 L 08/25/22 23:09 95 08/25/22 23:00 111 H 22 110/71 93 L 08/25/22 22:06 105 H 30 H 123/75 95 08/25/22 21:31 105 H 20 123/75 92 L 08/25/22 20:43 144 H 20 124/75 08/25/22 20:30 113 H 24 121/57 89 L 08/25/22 20:16 121 H 21 117/60 08/25/22 19:30 147 H 18 117/60 96 08/25/22 19:19 129 H 26 H 128/67 08/25/22 19:07 138 H 28 H 112/71 96 08/25/22 18:06 132 H 24 115/40 89 L 08/25/22 17:43 147 H 18 121/75 98 08/25/22 17:03 144 H 20 95 08/25/22 16:21 96.7 F 159 H 128/83 94 L Pain Assessment - Last Documented Pain Intensity 0 Intake and Output: Intake & Output 08/23/22 08/24/22 08/25/22 08/26/22 11:59 11:59 11:59 11:59 Intake Total 620 Output Total 600 Balance 20 Weight 57 kg Lab Results: Lab Results-Last 24 Hours 08/25/22 08/25/22 08/25/22 Range/Units 16:45 17:05 17:05 WBC 21.1 H (4.0-10.5) x10^3/uL RBC 4.00 L (4.1-5.4) x10^6/uL Hgb 12.0 (12.0-16.0) g/dL Hct 37.1 (35-47) % MCV 92.8 (78-100) fL MCH 30.0 (26-32) pg MCHC 32.3 (32-36) g/dL RDW 12.3 (11.5-14.0) % Plt Count 502 H (150-450) x10^3/uL MPV 9.3 (7.5-11.0) fL Segmented Neutrophils 78 H (36.0-66.0) % Lymphocytes (Manual) 15 L (24-44) % Monocytes (Manual) 6 (0.0-12.0) % Eosinophils (Manual) 1 (0.00-3.0) % Toxic Granulation 3+ Platelet Estimate INCREASED (NORMAL) RBC Morphology ABNORMAL Anisocytosis 1+ PT (9.4-12.5) SECONDS INR (0.8-3.0) APTT (25.1-36.5) SECONDS D-Dimer (0.0-0.50) mg/L Puncture Site pCO2 (35-45) mmHg pO2 (75-100) mmHg Base Excess (-2.0-2.0) O2 Saturation (94-100) g/dF ABG pH (7.35-7.45) ABG HCO3 (22-28) ABG O2 Sat (Measured) (95-100) % Sal Test A-a Gradient a/A Ratio Hemoglobin Carboxyhemoglobin (0.0-6.9) % THgb Methemoglobin (1.4-1.5) % Temperature C POC O2 Flow Rate % Sodium 128 L (137-145) mmol/L Potassium 3.2 L (3.5-5.1) mmol/L Chloride 95 L (98-107) mmol/L Carbon Dioxide 22 (22-30) mmol/L Anion Gap 14.2 (5-15) MEQ/L BUN 10 (7-17) mg/dL Creatinine 0.54 (0.52-1.04) mg/dL Estimated GFR > 60.0 ML/MIN Glucose 182 H (74-106) mg/dL POC Glucometer (74 to 106) mg/dL Hemoglobin A1c (4.5-6.0) % Lactic Acid 1.9 (0.4-2.0) Calcium 8.5 (8.4-10.2) mg/dL Total Bilirubin 0.60 (0.2-1.3) mg/dL AST 53 H (14-36) U/L ALT 60 H (0-35) U/L Alkaline Phosphatase 82 (38-126) U/L Troponin I (0.000-0.034) ng/mL NT-Pro-B Natriuret Pep (<300) pg/mL Serum Total Protein 6.6 (6.3-8.2) g/dL Albumin 3.2 L (3.5-5.0) g/dL Urine Color (Yellow) Urine Appearance (Clear) Urine pH (4.6-8.0) Ur Specific [place] (1.005-1.030) Urine Protein (Negative) Urine Glucose (UA) (Negative) mg/dL Urine Ketones (Negative) Urine Blood (Negative) Urine Nitrite (Negative) Urine Bilirubin (Negative) Urine Urobilinogen (0.2) mg/dL Ur Leukocyte Esterase (Negative) U Hyaline Cast (Auto) (0-2) /LPF Urine Microscopic RBC (0-5) /HPF Urine Microscopic WBC (0-5) /HPF Ur Epithelial Cells (None Seen) /HPF Urine Bacteria (None Seen) /HPF Urine Culture Reflexed (NO) Influenza Type A Ag (NEGATIVE) Influenza Type B Ag (NEGATIVE) RSV (PCR) (Negative) SARS-CoV-2 (PCR) (NEGATIVE) 08/25/22 08/25/22 08/25/22 Range/Units 17:05 17:05 17:05 WBC (4.0-10.5) x10^3/uL RBC (4.1-5.4) x10^6/uL Hgb (12.0-16.0) g/dL Hct (35-47) % MCV (78-100) fL MCH (26-32) pg MCHC (32-36) g/dL RDW (11.5-14.0) % Plt Count (150-450) x10^3/uL MPV (7.5-11.0) fL Segmented Neutrophils (36.0-66.0) % Lymphocytes (Manual) (24-44) % Monocytes (Manual) (0.0-12.0) % Eosinophils (Manual) (0.00-3.0) % Toxic Granulation Platelet Estimate (NORMAL) RBC Morphology Anisocytosis PT 11.9 (9.4-12.5) SECONDS INR 1.10 (0.8-3.0) APTT 27.6 (25.1-36.5) SECONDS D-Dimer (0.0-0.50) mg/L Puncture Site pCO2 (35-45) mmHg pO2 (75-100) mmHg Base Excess (-2.0-2.0) O2 Saturation (94-100) g/dF ABG pH (7.35-7.45) ABG HCO3 (22-28) ABG O2 Sat (Measured) (95-100) % Sal Test A-a Gradient a/A Ratio Hemoglobin Carboxyhemoglobin (0.0-6.9) % THgb Methemoglobin (1.4-1.5) % Temperature C POC O2 Flow Rate % Sodium (137-145) mmol/L Potassium (3.5-5.1) mmol/L Chloride (98-107) mmol/L Carbon Dioxide (22-30) mmol/L Anion Gap (5-15) MEQ/L BUN (7-17) mg/dL Creatinine (0.52-1.04) mg/dL Estimated GFR ML/MIN Glucose (74-106) mg/dL POC Glucometer (74 to 106) mg/dL Hemoglobin A1c (4.5-6.0) % Lactic Acid (0.4-2.0) Calcium (8.4-10.2) mg/dL Total Bilirubin (0.2-1.3) mg/dL AST (14-36) U/L ALT (0-35) U/L Alkaline Phosphatase (38-126) U/L Troponin I < 0.012 (0.000-0.034) ng/mL NT-Pro-B Natriuret Pep 4720 (<300) pg/mL Serum Total Protein (6.3-8.2) g/dL Albumin (3.5-5.0) g/dL Urine Color (Yellow) Urine Appearance (Clear) Urine pH (4.6-8.0) Ur Specific [place] (1.005-1.030) Urine Protein (Negative) Urine Glucose (UA) (Negative) mg/dL Urine Ketones (Negative) Urine Blood (Negative) Urine Nitrite (Negative) Urine Bilirubin (Negative) Urine Urobilinogen (0.2) mg/dL Ur Leukocyte Esterase (Negative) U Hyaline Cast (Auto) (0-2) /LPF Urine Microscopic RBC (0-5) /HPF Urine Microscopic WBC (0-5) /HPF Ur Epithelial Cells (None Seen) /HPF Urine Bacteria (None Seen) /HPF Urine Culture Reflexed (NO) Influenza Type A Ag (NEGATIVE) Influenza Type B Ag (NEGATIVE) RSV (PCR) (Negative) SARS-CoV-2 (PCR) (NEGATIVE) 08/25/22 08/25/22 08/25/22 Range/Units 17:05 17:30 18:50 WBC (4.0-10.5) x10^3/uL RBC (4.1-5.4) x10^6/uL Hgb (12.0-16.0) g/dL Hct (35-47) % MCV (78-100) fL MCH (26-32) pg MCHC (32-36) g/dL RDW (11.5-14.0) % Plt Count (150-450) x10^3/uL MPV (7.5-11.0) fL Segmented Neutrophils (36.0-66.0) % Lymphocytes (Manual) (24-44) % Monocytes (Manual) (0.0-12.0) % Eosinophils (Manual) (0.00-3.0) % Toxic Granulation Platelet Estimate (NORMAL) RBC Morphology Anisocytosis PT (9.4-12.5) SECONDS INR (0.8-3.0) APTT (25.1-36.5) SECONDS D-Dimer 2.46 H* (0.0-0.50) mg/L Puncture Site pCO2 (35-45) mmHg pO2 (75-100) mmHg Base Excess (-2.0-2.0) O2 Saturation (94-100) g/dF ABG pH (7.35-7.45) ABG HCO3 (22-28) ABG O2 Sat (Measured) (95-100) % Sal Test A-a Gradient a/A Ratio Hemoglobin Carboxyhemoglobin (0.0-6.9) % THgb Methemoglobin (1.4-1.5) % Temperature C POC O2 Flow Rate % Sodium (137-145) mmol/L Potassium (3.5-5.1) mmol/L Chloride (98-107) mmol/L Carbon Dioxide (22-30) mmol/L Anion Gap (5-15) MEQ/L BUN (7-17) mg/dL Creatinine (0.52-1.04) mg/dL Estimated GFR ML/MIN Glucose (74-106) mg/dL POC Glucometer (74 to 106) mg/dL Hemoglobin A1c (4.5-6.0) % Lactic Acid (0.4-2.0) Calcium (8.4-10.2) mg/dL Total Bilirubin (0.2-1.3) mg/dL AST (14-36) U/L ALT (0-35) U/L Alkaline Phosphatase (38-126) U/L Troponin I (0.000-0.034) ng/mL NT-Pro-B Natriuret Pep (<300) pg/mL Serum Total Protein (6.3-8.2) g/dL Albumin (3.5-5.0) g/dL Urine Color Yellow (Yellow) Urine Appearance Clear (Clear) Urine pH 6.0 (4.6-8.0) Ur Specific [place] 1.015 (1.005-1.030) Urine Protein 30 (Negative) Urine Glucose (UA) Negative (Negative) mg/dL Urine Ketones 40 A (Negative) Urine Blood Moderate A (Negative) Urine Nitrite Negative (Negative) Urine Bilirubin Negative (Negative) Urine Urobilinogen 1.0 A (0.2) mg/dL Ur Leukocyte Esterase Negative (Negative) U Hyaline Cast (Auto) 3-5 A (0-2) /LPF Urine Microscopic RBC 6-10 A (0-5) /HPF Urine Microscopic WBC 0-2 (0-5) /HPF Ur Epithelial Cells None Seen (None Seen) /HPF Urine Bacteria None Seen (None Seen) /HPF Urine Culture Reflexed YES (NO) Influenza Type A Ag NEGATIVE (NEGATIVE) Influenza Type B Ag NEGATIVE (NEGATIVE) RSV (PCR) NEGATIVE (Negative) SARS-CoV-2 (PCR) NEGATIVE (NEGATIVE) 08/25/22 08/25/22 08/26/22 Range/Units 20:51 21:00 03:15 WBC (4.0-10.5) x10^3/uL RBC (4.1-5.4) x10^6/uL Hgb (12.0-16.0) g/dL Hct (35-47) % MCV (78-100) fL MCH (26-32) pg MCHC (32-36) g/dL RDW (11.5-14.0) % Plt Count (150-450) x10^3/uL MPV (7.5-11.0) fL Segmented Neutrophils (36.0-66.0) % Lymphocytes (Manual) (24-44) % Monocytes (Manual) (0.0-12.0) % Eosinophils (Manual) (0.00-3.0) % Toxic Granulation Platelet Estimate (NORMAL) RBC Morphology Anisocytosis PT (9.4-12.5) SECONDS INR (0.8-3.0) APTT (25.1-36.5) SECONDS D-Dimer (0.0-0.50) mg/L Puncture Site RIGHT BRACHIAL pCO2 24 L (35-45) mmHg pO2 66 L (75-100) mmHg Base Excess 3.1 H (-2.0-2.0) O2 Saturation 94.6 (94-100) g/dF ABG pH 7.60 H* (7.35-7.45) ABG HCO3 23.6 (22-28) ABG O2 Sat (Measured) 95.6 (95-100) % Sal Test NOT APPLICABLE A-a Gradient 218 a/A Ratio 0.23 Hemoglobin 11.9 Carboxyhemoglobin 0.7 (0.0-6.9) % THgb Methemoglobin 0.3 L (1.4-1.5) % Temperature 37.0 C POC O2 Flow Rate 44 % Sodium 129 L (137-145) mmol/L Potassium 3.0 L 3.7 (3.5-5.1) mmol/L Chloride 96 L (98-107) mmol/L Carbon Dioxide 23 (22-30) mmol/L Anion Gap 13.2 (5-15) MEQ/L BUN 9 (7-17) mg/dL Creatinine 0.51 L (0.52-1.04) mg/dL Estimated GFR > 60.0 ML/MIN Glucose 162 H (74-106) mg/dL POC Glucometer (74 to 106) mg/dL Hemoglobin A1c (4.5-6.0) % Lactic Acid (0.4-2.0) Calcium 8.4 (8.4-10.2) mg/dL Total Bilirubin 0.70 (0.2-1.3) mg/dL AST 32 (14-36) U/L ALT 49 H (0-35) U/L Alkaline Phosphatase 68 (38-126) U/L Troponin I < 0.012 (0.000-0.034) ng/mL NT-Pro-B Natriuret Pep 4830 (<300) pg/mL Serum Total Protein 5.3 L (6.3-8.2) g/dL Albumin 2.5 L (3.5-5.0) g/dL Urine Color (Yellow) Urine Appearance (Clear) Urine pH (4.6-8.0) Ur Specific [place] (1.005-1.030) Urine Protein (Negative) Urine Glucose (UA) (Negative) mg/dL Urine Ketones (Negative) Urine Blood (Negative) Urine Nitrite (Negative) Urine Bilirubin (Negative) Urine Urobilinogen (0.2) mg/dL Ur Leukocyte Esterase (Negative) U Hyaline Cast (Auto) (0-2) /LPF Urine Microscopic RBC (0-5) /HPF Urine Microscopic WBC (0-5) /HPF Ur Epithelial Cells (None Seen) /HPF Urine Bacteria (None Seen) /HPF Urine Culture Reflexed (NO) Influenza Type A Ag (NEGATIVE) Influenza Type B Ag (NEGATIVE) RSV (PCR) (Negative) SARS-CoV-2 (PCR) (NEGATIVE) 08/26/22 08/26/22 08/26/22 Range/Units 03:19 07:07 09:15 WBC (4.0-10.5) x10^3/uL RBC (4.1-5.4) x10^6/uL Hgb (12.0-16.0) g/dL Hct (35-47) % MCV (78-100) fL MCH (26-32) pg MCHC (32-36) g/dL RDW (11.5-14.0) % Plt Count (150-450) x10^3/uL MPV (7.5-11.0) fL Segmented Neutrophils (36.0-66.0) % Lymphocytes (Manual) (24-44) % Monocytes (Manual) (0.0-12.0) % Eosinophils (Manual) (0.00-3.0) % Toxic Granulation Platelet Estimate (NORMAL) RBC Morphology Anisocytosis PT (9.4-12.5) SECONDS INR (0.8-3.0) APTT (25.1-36.5) SECONDS D-Dimer (0.0-0.50) mg/L Puncture Site pCO2 (35-45) mmHg pO2 (75-100) mmHg Base Excess (-2.0-2.0) O2 Saturation (94-100) g/dF ABG pH (7.35-7.45) ABG HCO3 (22-28) ABG O2 Sat (Measured) (95-100) % Sal Test A-a Gradient a/A Ratio Hemoglobin Carboxyhemoglobin (0.0-6.9) % THgb Methemoglobin (1.4-1.5) % Temperature C POC O2 Flow Rate % Sodium (137-145) mmol/L Potassium (3.5-5.1) mmol/L Chloride (98-107) mmol/L Carbon Dioxide (22-30) mmol/L Anion Gap (5-15) MEQ/L BUN (7-17) mg/dL Creatinine (0.52-1.04) mg/dL Estimated GFR ML/MIN Glucose (74-106) mg/dL POC Glucometer 160 H (74 to 106) mg/dL Hemoglobin A1c 6.38 H (4.5-6.0) % Lactic Acid (0.4-2.0) Calcium (8.4-10.2) mg/dL Total Bilirubin (0.2-1.3) mg/dL AST (14-36) U/L ALT (0-35) U/L Alkaline Phosphatase (38-126) U/L Troponin I < 0.012 (0.000-0.034) ng/mL NT-Pro-B Natriuret Pep (<300) pg/mL Serum Total Protein (6.3-8.2) g/dL Albumin (3.5-5.0) g/dL Urine Color (Yellow) Urine Appearance (Clear) Urine pH (4.6-8.0) Ur Specific [place] (1.005-1.030) Urine Protein (Negative) Urine Glucose (UA) (Negative) mg/dL Urine Ketones (Negative) Urine Blood (Negative) Urine Nitrite (Negative) Urine Bilirubin (Negative) Urine Urobilinogen (0.2) mg/dL Ur Leukocyte Esterase (Negative) U Hyaline Cast (Auto) (0-2) /LPF Urine Microscopic RBC (0-5) /HPF Urine Microscopic WBC (0-5) /HPF Ur Epithelial Cells (None Seen) /HPF Urine Bacteria (None Seen) /HPF Urine Culture Reflexed (NO) Influenza Type A Ag (NEGATIVE) Influenza Type B Ag (NEGATIVE) RSV (PCR) (Negative) SARS-CoV-2 (PCR) (NEGATIVE) Radiology Exams: Radiology Procedures Category Date Time Status CHEST 1 VIEW (PORTABLE) Stat Exams 08/25/22 16:21 Completed CHEST WITH CONTRAST [CT] Stat Exams 08/25/22 19:31 Completed Multi-Disciplinary Progress Notes: Multi-Disciplinary Progress Notes 08/25/22 21:20 Respiratory Note by Tanja Parisi I PLACED THE PT ON A 7L OXYMIZER TO GET HER SPO2 >90% AFTER REVIEWING HER ABG RESULTS. Initialized on 08/25/22 21:20 - END OF NOTE Assessment/Plan (1) Sepsis Current Visit: Yes Status: Acute Qualifiers: Sepsis type: Pneumococcus Sepsis acute organ dysfunction status: with acute organ dysfunction Severe sepsis acute organ dysfunction type: acute respiratory failure Acute respiratory failure type: with hypoxia Severe sepsis shock status: with septic shock Qualified Code(s): A40.3 - Sepsis due to Streptococcus pneumoniae; R65.21 - Severe sepsis with septic shock; J96.01 - Acute respiratory failure with hypoxia Assessment & Plan: Chief Complaint Diagnosis pneumonia, new onset afib Admission Date Date 08/25/22 Allergies Allergy/AdvReac Type Severity Reaction Status Date / Time azithromycin Allergy Severe Tightness Verified 08/25/22 16:36 [From Zithromax Z-Ankit] of Throat Penicillins Allergy Severe Tightness Verified 08/25/22 16:36 of Throat xanthan gum Allergy Verified 08/25/22 16:36 xylitol Allergy Verified 08/25/22 16:36 Vital Signs (Last 24 hours) Temp Pulse Resp BP BP Pulse Ox 08/26/22 09:47 74 22 95 08/26/22 07:23 77 18 118/68 92 L 08/26/22 07:12 69 08/26/22 07:00 98.6 F 69 21 116/45 98 08/26/22 06:00 98 F 71 20 123/42 95 08/26/22 05:00 67 20 109/47 97 08/26/22 04:45 93 L 08/26/22 04:00 80 20 97/77 96 08/26/22 03:15 80 20 120/56 96 08/26/22 03:10 119 H 20 125/77 95 08/26/22 02:00 117 H 20 120/56 96 08/26/22 01:04 111 H 25 H 92 L 08/26/22 01:00 82 125/51 08/26/22 00:00 98.5 F 114 H 22 107/68 84 L 08/25/22 23:09 95 08/25/22 23:00 111 H 22 110/71 93 L 08/25/22 22:06 105 H 30 H 123/75 95 08/25/22 21:31 105 H 20 123/75 92 L 08/25/22 20:43 144 H 20 124/75 08/25/22 20:30 113 H 24 121/57 89 L 08/25/22 20:16 121 H 21 117/60 08/25/22 19:30 147 H 18 117/60 96 08/25/22 19:19 129 H 26 H 128/67 08/25/22 19:07 138 H 28 H 112/71 96 08/25/22 18:06 132 H 24 115/40 89 L 08/25/22 17:43 147 H 18 121/75 98 08/25/22 17:03 144 H 20 95 08/25/22 16:21 96.7 F 159 H 128/83 94 L Current Medications Generic Name Dose Route Start Last Admin Trade Name Freq PRN Reason Stop Dose Admin Acetaminophen 650 mg 08/26/22 00:31 Acetaminophen 325 Mg Tablet PO 09/25/22 00:30 Q4H PRN PRN PAIN, FEVER, HEADACHE Albuterol/Ipratropium 3 ml 08/26/22 00:32 08/26/22 09:37 Ipratropium/Albuterol Sulfate 3 Ml Ampul.Neb IH 09/25/22 00:44 3 ml QID PRN PRN Administration SHORTNESS OF BREATH/WHEEZING Benzonatate 100 mg 08/26/22 00:33 08/26/22 09:02 Benzonatate 100 Mg Capsule PO 09/25/22 00:32 100 mg TID PRN PRN Administration COUGH Diphenhydramine HCl 25 mg 08/25/22 23:47 Diphenhydramine Hcl 25 Mg Capsule PO 09/24/22 23:46 Q6H PRN PRN ITCHING Docusate Sodium 100 mg 08/26/22 00:34 08/26/22 09:02 Docusate Sodium 100 Mg Capsule PO 09/25/22 00:33 100 mg BIDPRN PRN Administration CONSTIPATION Enoxaparin Sodium 60 mg 08/26/22 10:00 08/26/22 09:02 Enoxaparin Sodium 60 Mg/0.6 Ml Syringe SQ 09/25/22 09:59 60 mg BID LELA Administration Furosemide 20 mg 08/26/22 21:13 08/25/22 21:36 Furosemide 20 Mg/Vial IV 08/26/22 21:14 20 mg ONCE ONE Administration Diltiazem HCl 100 mls @ 5 mls/hr 08/26/22 00:34 Cardizem Drip 100 Mg/100 Ml D5w IV 09/25/22 00:33 .Q20H PRN HEART RATE/ A-FIB Protocol 5 MG/HR Diltiazem HCl 100 mls @ 5 mls/hr 08/26/22 02:43 Cardizem Drip 100 Mg/100 Ml D5w IV 09/25/22 02:42 .Q20H PRN HEART RATE/ A-FIB Protocol 5 MG/HR Doxycycline Hyclate 100 mg/ 100 mls @ 100 mls/hr 08/26/22 22:00 Dextrose IV 09/25/22 21:59 Q12HT [facility] Cefepime HCl 2 g/ Dextrose 100 mls @ 200 mls/hr 08/26/22 14:00 IV 09/25/22 13:59 Q8HT [facility] Vancomycin HCl 1 gm in 200 mls @ 125 mls/hr 08/26/22 20:00 Vancomycin 1 Gram/200 Ml Bag IV 09/25/22 19:59 Q18H [facility] Insulin Human Regular 0 unit 08/26/22 00:39 Insulin Regular, Human 1 Unit SQ 09/25/22 00:38 UD PRN HYPERGLYCEMIA Magnesium Hydroxide 30 ml 08/26/22 00:40 Magnesium Hydroxide 30 Ml Udcup PO 09/25/22 00:39 HS PRN PRN CONSTIPATION Metoprolol Tartrate 25 mg 08/26/22 00:41 08/26/22 09:02 Metoprolol Tartrate 25 Mg Tab PO 09/25/22 00:40 25 mg BID LELA Administration Montelukast Sodium 10 mg 08/26/22 10:00 08/26/22 09:02 Montelukast Sodium 10 Mg Tablet PO 09/25/22 09:59 10 mg DAILY [facility] Administration Discontinued Medications Generic Name Dose Route Start Last Admin Trade Name Freq PRN Reason Stop Dose Admin Acetaminophen 650 mg 08/25/22 22:29 Acetaminophen 325 Mg Tablet PO 09/24/22 22:28 Q4H PRN PRN PAIN, FEVER, HEADACHE Albuterol/Ipratropium 3 ml 08/25/22 16:37 08/25/22 16:52 Ipratropium/Albuterol Sulfate 3 Ml Ampul.Neb IH 08/25/22 16:38 3 ml STAT ONE Administration Albuterol/Ipratropium Confirm 08/25/22 16:39 Ipratropium/Albuterol Sulfate 3 Ml Ampul.Neb Administered 08/25/22 16:40 Dose 3 ml IH .STK-MED ONE Albuterol/Ipratropium 3 ml 08/25/22 22:29 Ipratropium/Albuterol Sulfate 3 Ml Ampul.Neb IH 09/25/22 00:59 Q6HRT PRN SHORTNESS OF BREATH/WHEEZING Albuterol/Ipratropium Confirm 08/26/22 00:25 Ipratropium/Albuterol Sulfate 3 Ml Ampul.Neb Administered 08/26/22 00:26 Dose 3 ml IH .STK-MED ONE Benzonatate 100 mg 08/25/22 23:00 Benzonatate 100 Mg Capsule PO 08/30/22 23:01 TID PRN LELA Cefepime HCl Confirm 08/26/22 02:36 Cefepime Hcl 2 Gm Vial Administered 08/26/22 02:37 Dose 2 g .ROUTE .STK-MED ONE Digoxin 0.25 mg 08/25/22 20:24 08/25/22 20:31 Digoxin 0.5 Mg/2 Ml Injection IV 08/25/22 20:25 0.25 mg STAT ONE Administration Digoxin Confirm 08/25/22 20:28 Digoxin 0.5 Mg/2 Ml Injection Administered 08/25/22 20:29 Dose 0.5 mg .ROUTE .STK-MED ONE Digoxin 0.25 mg 08/25/22 21:10 08/25/22 23:57 Digoxin 0.5 Mg/2 Ml Injection IV 08/25/22 21:11 Not Given STAT ONE Digoxin 0.25 mg 08/25/22 21:29 08/25/22 22:40 Digoxin 0.5 Mg/2 Ml Injection IV 08/25/22 21:30 Not Given STAT ONE Diltiazem HCl 10 mg 08/25/22 16:51 08/25/22 16:54 Diltiazem Hcl Iv 5 Mg/Ml Vial IV 08/25/22 16:52 10 mg STAT ONE Administration Diltiazem HCl Confirm 08/25/22 16:52 Diltiazem Hcl Iv 5 Mg/Ml Vial Administered 08/25/22 16:53 Dose 50 mg IV .STK-MED ONE Diltiazem HCl 10 mg 08/25/22 17:54 08/25/22 18:03 Diltiazem Hcl Iv 5 Mg/Ml Vial IV 08/25/22 17:55 10 mg STAT ONE Administration Docusate Sodium 100 mg 08/25/22 22:29 Docusate Sodium 100 Mg Capsule PO 09/24/22 22:28 BIDPRN PRN CONSTIPATION Doxycycline Hyclate Confirm 08/25/22 17:54 Doxycycline Hyclate 100 Mg/Vial Injection Administered 08/25/22 17:55 Dose 100 mg IV .STK-MED ONE Doxycycline Hyclate Confirm 08/26/22 02:36 Doxycycline Hyclate 100 Mg/Vial Injection Administered 08/26/22 02:37 Dose 100 mg IV .STK-MED ONE Enoxaparin Sodium 60 mg 08/25/22 22:04 08/25/22 22:56 Enoxaparin Sodium 60 Mg/0.6 Ml Syringe SQ 08/25/22 22:05 60 mg STAT ONE Administration Enoxaparin Sodium 60 mg 08/26/22 10:00 Enoxaparin Sodium 40 Mg/0.4 Ml Syringe SQ 09/25/22 09:59 BID LELA Furosemide Confirm 08/25/22 21:34 Furosemide 20 Mg/Vial Administered 08/25/22 21:35 Dose 20 mg .ROUTE .STK-MED ONE Ceftriaxone Sodium/Dextrose 1 g in 50 mls @ 100 mls/hr 08/25/22 17:02 08/25/22 17:41 Rocephin 1 Gm-D5w 50 Ml Bag IV 08/25/22 17:31 Infused STAT STA Infusion Ceftriaxone Sodium/Dextrose Confirm 08/25/22 17:03 Rocephin 1 Gm-D5w 50 Ml Bag Administered 08/25/22 17:04 Dose 1 g in 50 mls @ ud IV .STK-MED ONE Doxycycline Hyclate 100 mg/ 100 mls @ 100 mls/hr 08/25/22 22:00 Dextrose IV 09/24/22 21:59 Q12HT LELA Doxycycline Hyclate 100 mg/ 100 mls @ 100 mls/hr 08/25/22 17:36 08/25/22 18:04 Dextrose IV 09/24/22 17:35 100 mls/hr Q12HT LELA Administration Dextrose Confirm 08/25/22 17:54 D5w 100ml Mini Bag 100 Ml Administered 08/25/22 17:55 Dose 100 mls @ ud IV .STK-MED ONE Diltiazem HCl 100 mls @ 5 mls/hr 08/25/22 18:37 08/25/22 20:43 Cardizem Drip 100 Mg/100 Ml D5w IV 09/24/22 18:36 10 mg/hr .Q20H PRN 10 mls/hr HEART RATE/ A-FIB Titration Protocol 5 MG/HR Cefepime HCl 2 g/ Dextrose 100 mls @ 200 mls/hr 08/25/22 22:45 08/26/22 07:21 IV 09/01/22 22:44 Not Given Q8H LELA Vancomycin HCl 1 gm/ Sodium 250 mls @ 125 mls/hr 08/25/22 23:00 08/26/22 07:22 Chloride IV 09/01/22 22:59 Not Given Q12H LELA Diltiazem HCl Confirm 08/25/22 19:09 Cardizem Drip 100 Mg/100 Ml D5w Administered 08/25/22 19:10 Dose 100 mls @ ud IV .STK-MED ONE Potassium Chloride/Sodium Chloride 1,000 mls @ 50 mls/hr 08/25/22 23:47 08/26/22 09:23 Sodium Chloride 0.9% W/ 20 Meq Kcl/Liter IV 08/26/22 09:46 50 mls/hr .Q20H LELA Infusion Cefepime HCl 2 g/ Dextrose 100 mls @ 200 mls/hr 08/26/22 01:15 08/26/22 03:22 IV 09/25/22 01:14 200 mls/hr Q8H LELA Administration Doxycycline Hyclate 100 mg/ 100 mls @ 100 mls/hr 08/26/22 02:00 08/26/22 05:05 Dextrose IV 09/25/22 01:59 100 mls/hr Q12HT LELA Administration Vancomycin HCl 1 gm in 200 mls @ 125 mls/hr 08/26/22 02:00 08/26/22 02:29 Vancomycin 1 Gram/200 Ml Bag IV 09/25/22 01:59 125 mls/hr Q12H LELA Administration Dextrose Confirm 08/26/22 02:37 D5w 100ml Mini Bag 100 Ml Administered 08/26/22 02:38 Dose 200 mls @ ud IV .STK-MED ONE Insulin Human Regular 0 unit 08/25/22 22:29 Insulin Regular, Human 1 Unit SQ 09/24/22 22:28 UD PRN HYPERGLYCEMIA Loratadine 10 mg 08/26/22 10:00 Loratadine 10 Mg Tablet PO 09/25/22 09:59 DAILY LELA Magnesium Hydroxide 30 ml 08/25/22 22:29 Magnesium Hydroxide 30 Ml Udcup PO 09/24/22 22:28 HS PRN PRN CONSTIPATION Metoprolol Tartrate 25 mg 08/25/22 22:36 08/26/22 07:21 Metoprolol Tartrate 25 Mg Tab PO 09/24/22 22:35 Not Given BID LELA Potassium Chloride 40 meq 08/25/22 21:59 08/25/22 22:19 Potassium Chloride Tab 10 Meq Tab PO 08/25/22 22:00 40 meq STAT ONE Administration Potassium Chloride Confirm 08/25/22 22:18 Potassium Chloride Tab 10 Meq Tab Administered 08/25/22 22:19 Dose 40 meq PO .STK-MED ONE Intake & Output (Last 24 hours) 08/23/22 08/24/22 08/25/22 08/26/22 11:59 11:59 11:59 11:59 Intake Total 620 Output Total 600 Balance 20 Weight 57 kg Microbiology Results (Last 24 hours) 08/25/22 Unknown Sputum - Expectorant Gram Stain - Pending 08/25/22 Unknown Sputum - Expectorant Sputum Culture - Pending 08/25/22 17:30 Urine, Void Urine Culture - Pending 08/25/22 17:50 Blood Blood Culture Gram Stain - Pending 08/25/22 17:50 Blood Blood Culture - Pending 08/25/22 16:46 Blood Blood Culture Gram Stain - Pending 08/25/22 16:46 Blood Blood Culture - Pending Laboratory Results (Last 24 hours) 08/26/22 08/26/22 08/26/22 09:15 07:07 03:19 WBC RBC Hgb Hct MCV MCH MCHC RDW Plt Count MPV Segmented Neutrophils Lymphocytes (Manual) Monocytes (Manual) Eosinophils (Manual) Toxic Granulation Platelet Estimate RBC Morphology Anisocytosis PT INR APTT D-Dimer Puncture Site pCO2 pO2 Base Excess O2 Saturation ABG pH ABG HCO3 ABG O2 Sat (Measured) Sal Test A-a Gradient a/A Ratio Hemoglobin Carboxyhemoglobin Methemoglobin Temperature POC O2 Flow Rate Sodium Potassium Chloride Carbon Dioxide Anion Gap BUN Creatinine Estimated GFR Glucose POC Glucometer 160 H Hemoglobin A1c 6.38 H Lactic Acid Calcium Total Bilirubin AST ALT Alkaline Phosphatase Troponin I < 0.012 NT-Pro-B Natriuret Pep Serum Total Protein Albumin Urine Color Urine Appearance Urine pH Ur Specific [place] Urine Protein Urine Glucose (UA) Urine Ketones Urine Blood Urine Nitrite Urine Bilirubin Urine Urobilinogen Ur Leukocyte Esterase U Hyaline Cast (Auto) Urine Microscopic RBC Urine Microscopic WBC Ur Epithelial Cells Urine Bacteria Urine Culture Reflexed Influenza Type A Ag Influenza Type B Ag RSV (PCR) SARS-CoV-2 (PCR) 08/26/22 08/25/22 08/25/22 03:15 21:00 20:51 WBC RBC Hgb Hct MCV MCH MCHC RDW Plt Count MPV Segmented Neutrophils Lymphocytes (Manual) Monocytes (Manual) Eosinophils (Manual) Toxic Granulation Platelet Estimate RBC Morphology Anisocytosis PT INR APTT D-Dimer Puncture Site RIGHT BRACHIAL pCO2 24 L pO2 66 L Base Excess 3.1 H O2 Saturation 94.6 ABG pH 7.60 H* ABG HCO3 23.6 ABG O2 Sat (Measured) 95.6 Sal Test NOT APPLICABLE A-a Gradient 218 a/A Ratio 0.23 Hemoglobin 11.9 Carboxyhemoglobin 0.7 Methemoglobin 0.3 L Temperature 37.0 POC O2 Flow Rate 44 Sodium 129 L Potassium 3.7 3.0 L Chloride 96 L Carbon Dioxide 23 Anion Gap 13.2 BUN 9 Creatinine 0.51 L Estimated GFR > 60.0 Glucose 162 H POC Glucometer Hemoglobin A1c Lactic Acid Calcium 8.4 Total Bilirubin 0.70 AST 32 ALT 49 H Alkaline Phosphatase 68 Troponin I < 0.012 NT-Pro-B Natriuret Pep 4830 Serum Total Protein 5.3 L Albumin 2.5 L Urine Color Urine Appearance Urine pH Ur Specific [place] Urine Protein Urine Glucose (UA) Urine Ketones Urine Blood Urine Nitrite Urine Bilirubin Urine Urobilinogen Ur Leukocyte Esterase U Hyaline Cast (Auto) Urine Microscopic RBC Urine Microscopic WBC Ur Epithelial Cells Urine Bacteria Urine Culture Reflexed Influenza Type A Ag Influenza Type B Ag RSV (PCR) SARS-CoV-2 (PCR) 08/25/22 08/25/2208/25/23 18:50 17:30 17:05 WBC RBC Hgb Hct MCV MCH MCHC RDW Plt Count MPV Segmented Neutrophils Lymphocytes (Manual) Monocytes (Manual) Eosinophils (Manual) Toxic Granulation Platelet Estimate RBC Morphology Anisocytosis PT INR APTT D-Dimer 2.46 H* Puncture Site pCO2 pO2 Base Excess O2 Saturation ABG pH ABG HCO3 ABG O2 Sat (Measured) Sal Test A-a Gradient a/A Ratio Hemoglobin Carboxyhemoglobin Methemoglobin Temperature POC O2 Flow Rate Sodium Potassium Chloride Carbon Dioxide Anion Gap BUN Creatinine Estimated GFR Glucose POC Glucometer Hemoglobin A1c Lactic Acid Calcium Total Bilirubin AST ALT Alkaline Phosphatase Troponin I NT-Pro-B Natriuret Pep Serum Total Protein Albumin Urine Color Yellow Urine Appearance Clear Urine pH 6.0 Ur Specific [place] 1.015 Urine Protein 30 Urine Glucose (UA) Negative Urine Ketones 40 A Urine Blood Moderate A Urine Nitrite Negative Urine Bilirubin Negative Urine Urobilinogen 1.0 A Ur Leukocyte Esterase Negative U Hyaline Cast (Auto) 3-5 A Urine Microscopic RBC 6-10 A Urine Microscopic WBC 0-2 Ur Epithelial Cells None Seen Urine Bacteria None Seen Urine Culture Reflexed YES Influenza Type A Ag NEGATIVE Influenza Type B Ag NEGATIVE RSV (PCR) NEGATIVE SARS-CoV-2 (PCR) NEGATIVE 08/25/22 08/25/22 08/25/22 17:05 17:05 17:05 WBC RBC Hgb Hct MCV MCH MCHC RDW Plt Count MPV Segmented Neutrophils Lymphocytes (Manual) Monocytes (Manual) Eosinophils (Manual) Toxic Granulation Platelet Estimate RBC Morphology Anisocytosis PT 11.9 INR 1.10 APTT 27.6 D-Dimer Puncture Site pCO2 pO2 Base Excess O2 Saturation ABG pH ABG HCO3 ABG O2 Sat (Measured) Sal Test A-a Gradient a/A Ratio Hemoglobin Carboxyhemoglobin Methemoglobin Temperature POC O2 Flow Rate Sodium Potassium Chloride Carbon Dioxide Anion Gap BUN Creatinine Estimated GFR Glucose POC Glucometer Hemoglobin A1c Lactic Acid Calcium Total Bilirubin AST ALT Alkaline Phosphatase Troponin I < 0.012 NT-Pro-B Natriuret Pep 4720 Serum Total Protein Albumin Urine Color Urine Appearance Urine pH Ur Specific [place] Urine Protein Urine Glucose (UA) Urine Ketones Urine Blood Urine Nitrite Urine Bilirubin Urine Urobilinogen Ur Leukocyte Esterase U Hyaline Cast (Auto) Urine Microscopic RBC Urine Microscopic WBC Ur Epithelial Cells Urine Bacteria Urine Culture Reflexed Influenza Type A Ag Influenza Type B Ag RSV (PCR) SARS-CoV-2 (PCR) 08/25/22 08/25/22 08/25/22 17:05 17:05 16:45 WBC 21.1 H RBC 4.00 L Hgb 12.0 Hct 37.1 MCV 92.8 MCH 30.0 MCHC 32.3 RDW 12.3 Plt Count 502 H MPV 9.3 Segmented Neutrophils 78 H Lymphocytes (Manual) 15 L Monocytes (Manual) 6 Eosinophils (Manual) 1 Toxic Granulation 3+ Platelet Estimate INCREASED RBC Morphology ABNORMAL Anisocytosis 1+ PT INR APTT D-Dimer Puncture Site pCO2 pO2 Base Excess O2 Saturation ABG pH ABG HCO3 ABG O2 Sat (Measured) Sal Test A-a Gradient a/A Ratio Hemoglobin Carboxyhemoglobin Methemoglobin Temperature POC O2 Flow Rate Sodium 128 L Potassium 3.2 L Chloride 95 L Carbon Dioxide 22 Anion Gap 14.2 BUN 10 Creatinine 0.54 Estimated GFR > 60.0 Glucose 182 H POC Glucometer Hemoglobin A1c Lactic Acid 1.9 Calcium 8.5 Total Bilirubin 0.60 AST 53 H ALT 60 H Alkaline Phosphatase 82 Troponin I NT-Pro-B Natriuret Pep Serum Total Protein 6.6 Albumin 3.2 L Urine Color Urine Appearance Urine pH Ur Specific [place] Urine Protein Urine Glucose (UA) Urine Ketones Urine Blood Urine Nitrite Urine Bilirubin Urine Urobilinogen Ur Leukocyte Esterase U Hyaline Cast (Auto) Urine Microscopic RBC Urine Microscopic WBC Ur Epithelial Cells Urine Bacteria Urine Culture Reflexed Influenza Type A Ag Influenza Type B Ag RSV (PCR) SARS-CoV-2 (PCR) Orders (Last 24 hours) Category Date Time Status Bedrest ROUTINE Activity 08/26/22 03:13 Active Admit as Inpatient ROUTINE Care 08/26/22 03:13 Active EKG-ER Only STAT Care 08/25/22 16:20 Completed POCT Glucose Check ACHS Care 08/26/22 03:15 Active Heart-Healthy Diet Diet 08/26/22 Breakfast Active CHEST 1 VIEW (PORTABLE) Stat Exams 08/25/22 16:21 Completed CHEST WITH CONTRAST [CT] Stat Exams 08/25/22 19:31 Completed ABG [ARTERIAL BLOOD GASES] Stat Lab 08/25/22 20:51 Completed BLOOD CULTURE Stat Lab 08/25/22 17:50 Received BMP AM.LAB Lab 08/27/22 04:00 Ordered CBC W DIFF AM.LAB Lab 08/27/22 04:00 Ordered CBC W DIFF Stat Lab 08/25/22 17:05 Completed CMP AM.LAB Lab 08/26/22 03:15 Completed CMP Stat Lab 08/25/22 17:05 Completed COVID/FLU/RSV Panel Stat Lab 08/25/22 17:05 Completed CULTURE,URINE Stat Lab 08/25/22 17:30 Received D-DIMER QUANTITATIVE Stat Lab 08/25/22 18:50 Completed HEMOGLOBIN A1C Urgent Lab 08/26/22 09:15 Completed Lactic Acid Stat Lab 08/25/22 16:45 Completed Manual Differential NC Stat Lab 08/25/22 17:05 Completed NT PRO BNPII AM.LAB Lab 08/26/22 03:15 Completed NT PRO BNPII Stat Lab 08/25/22 17:05 Completed POCT GLUCOSE Stat Lab 08/26/22 07:07 Completed PROTIME WITH INR Stat Lab 08/25/22 17:05 Completed PTT Stat Lab 08/25/22 17:05 Completed TROPONIN Q4H Lab 08/25/22 17:05 Completed TROPONIN Q4H Lab 08/25/22 21:00 Completed TROPONIN Q4H Lab 08/26/22 03:19 Completed TSH [TSH, 3RD Generation] AM.LAB Lab 08/27/22 04:00 Ordered UA W/RFX UR CULTURE Stat Lab 08/25/22 17:30 Completed Acetaminophen 325 mg [Tylenol 325 mg] Med 08/25/22 22:29 Discontinued 650 mg PO Q4H PRN PRN Acetaminophen 325 mg [Tylenol 325 mg] Med 08/26/22 00:31 Active 650 mg PO Q4H PRN PRN Albuterol/Ipratropium 3ml Neb* [DUONEB 0.5-3 MG/3 ml Med 08/25/22 16:39 Discontinued Neb] 3 ml IH .STK-MED ONE Albuterol/Ipratropium 3ml Neb* [DUONEB 0.5-3 MG/3 ml Med 08/26/22 00:25 Discontinued Neb] 3 ml IH .STK-MED ONE Albuterol/Ipratropium 3ml Neb* [DUONEB 0.5-3 MG/3 ml Med 08/25/22 22:29 Discontinued Neb] 3 ml IH Q6HRT PRN Albuterol/Ipratropium 3ml Neb* [DUONEB 0.5-3 MG/3 ml Med 08/26/22 00:32 Active Neb] 3 ml IH QID PRN PRN Albuterol/Ipratropium 3ml Neb* [DUONEB 0.5-3 MG/3 ml Med 08/25/22 16:37 Discontinued Neb] 3 ml IH STAT ONE Benzonatate 100 mg [Tessalon Perles 100 MG] Med 08/25/22 23:00 Discontinued 100 mg PO TID PRN Benzonatate 100 mg [Tessalon Perles 100 MG] Med 08/26/22 00:33 Active 100 mg PO TID PRN PRN Cefepime HCl 2 gm [Maxipime 2 GM] Med 08/26/22 02:36 Discontinued 2 g .ROUTE .STK-MED ONE Cefepime HCl 2 gm [Maxipime 2 GM] 2 g Med 08/25/22 22:45 Discontinued D5w 100 ml Mini-Bag Plus [Dextrose 5%/Water IV Soln. 100ML PLUS BAG] 100 ml IV Q8H Cefepime HCl 2 gm [Maxipime 2 GM] 2 g Med 08/26/22 01:15 Discontinued D5w 100 ml Mini-Bag Plus [Dextrose 5%/Water IV Soln. 100ML PLUS BAG] 100 ml IV Q8H Cefepime HCl 2 gm [Maxipime 2 GM] 2 g Med 08/26/22 14:00 Active D5w 100 ml Mini-Bag Plus [Dextrose 5%/Water IV Soln. 100ML PLUS BAG] 100 ml IV Q8HT Ceftriaxone 1 GM/50 ML PREMIX* [ROCEPHIN 1 Gm-D5w 50 ml Med 08/25/22 17:02 Discontinued Bag] 1 g in 50 ml IV STAT Ceftriaxone 1 GM/50 ML PREMIX* [ROCEPHIN 1 Gm-D5w 50 ml Med 08/25/22 17:03 Discontinued Bag] 1 g in 50 ml IV UD D5w 100 ml [D5w 100ML Mini Bag 100 ML] 100 ml Med 08/25/22 17:54 Discontinued IV UD D5w 100 ml [D5w 100ML Mini Bag 100 ML] 200 ml Med 08/26/22 02:37 Discontinued IV UD Digoxin 0.5 mg/2 ml Inj [Lanoxin 0.5 MG/2 ML [facility] 08/25/22 20:24 Disco ntinued INJECTION] 0.25 mg IV STAT ONE Digoxin 0.5 mg/2 ml Inj [Lanoxin 0.5 MG/2 ML Med 08/25/22 21:10 Discontinued INJECTION] 0.25 mg IV STAT ONE Digoxin 0.5 mg/2 ml Inj [Lanoxin 0.5 MG/2 ML [facility] 08/25/22 21:29 Discontinued INJECTION] 0.25 mg IV STAT ONE Digoxin 0.5 mg/2 ml Inj [Lanoxin 0.5 MG/2 ML [facility] 08/25/22 20:28 Discontinued INJECTION] 0.5 mg .ROUTE .STK-MED ONE Diltiazem HCl 100 mg/100 ml [Cardizem Drip 100 mg/100 [facility] 08/25/22 18:37 Discontinued ml D5w] 100 ml IV 5 mg/hr Diltiazem HCl 100 mg/100 ml [Cardizem Drip 100 mg/100 [facility] 08/26/22 00:34 Active ml D5w] 100 ml IV 5 mg/hr Diltiazem HCl 100 mg/100 ml [Cardizem Drip 100 mg/100 [facility] 08/26/22 02:43 Active ml D5w] 100 ml IV 5 mg/hr Diltiazem HCl 100 mg/100 ml [Cardizem Drip 100 mg/100 [facility] 08/25/22 19:09 Discontinued ml D5w] 100 ml IV UD Diltiazem HCl 50 mg/10 ml [Cardizem IV 50 MG/10 ML [facility] 08/25/22 16:51 Discontinued *] 10 mg IV STAT ONE Diltiazem HCl 50 mg/10 ml [Cardizem IV 50 MG/10 ML [facility] 08/25/22 17:54 Discontinued *] 10 mg IV STAT ONE Diltiazem HCl 50 mg/10 ml [Cardizem IV 50 MG/10 ML [facility] 08/25/22 16:52 Discontinued *] 50 mg IV .STK-MED ONE Diphenhydramine HCl 25 mg [Benadryl 25 mg Capsule [facility] 08/25/22 23:47 Active ] 25 mg PO Q6H PRN PRN Docusate Sodium 100 mg [Docusate Sodium 100 MG] Med 08/25/22 22:29 Discontinued 100 mg PO BIDPRN PRN Docusate Sodium 100 mg [Docusate Sodium 100 MG] [facility] 08/26/22 00:34 Active 100 mg PO BIDPRN PRN Doxycycline Hyclate 100 mg [Vibramycin 100 mg] [facility] 08/25/22 17:54 Discontinued 100 mg IV .STK-[facility] ONE Doxycycline Hyclate 100 mg [Vibramycin 100 mg] [facility] 08/26/22 02:36 Discontinued 100 mg IV .STK-[facility] ONE Doxycycline Hyclate 100 mg [Vibramycin 100 mg] [facility] 08/25/22 17:36 Discontinued 100 mg D5w 100 ml Mini-Bag Plus [Dextrose 5%/Water IV Soln. 100ML PLUS BAG] 100 ml IV Q12HT Doxycycline Hyclate 100 mg [Vibramycin 100 mg] [facility] 08/25/22 22:00 Discontinued 100 mg D5w 100 ml Mini-Bag Plus [Dextrose 5%/Water IV Soln. 100ML PLUS BAG] 100 ml IV Q12HT Doxycycline Hyclate 100 mg [Vibramycin 100 mg] [facility] 08/26/22 02:00 Discontinued 100 mg D5w 100 ml Mini-Bag Plus [Dextrose 5%/Water IV Soln. 100ML PLUS BAG] 100 ml IV Q12HT Doxycycline Hyclate 100 mg [Vibramycin 100 mg] [facility] 08/26/22 22:00 Active 100 mg D5w 100 ml Mini-Bag Plus [Dextrose 5%/Water IV Soln. 100ML PLUS BAG] 100 ml IV Q12HT Enoxaparin Sodium [Enoxaparin Sodium] Med 08/26/22 10:00 Active 60 mg SQ BID Enoxaparin Sodium [Enoxaparin Sodium] Med 08/26/22 10:00 Discontinued 60 mg SQ BID Enoxaparin Sodium [Enoxaparin Sodium] Med 08/25/22 22:04 Discontinued 60 mg SQ STAT ONE Furosemide 20 mg/2 ml [Lasix 20 MG/2 ML] Med 08/25/22 21:34 Discontinued 20 mg .ROUTE .STK-MED ONE Furosemide 20 mg/2 ml [Lasix 20 MG/2 ML] Med 08/26/22 21:13 Once 20 mg IV ONCE ONE Insulin Regular, Human [Humulin R] Med 08/25/22 22:29 Discontinued See Dose Instructions SQ UD PRN Insulin Regular, Human [Humulin R] Med 08/26/22 00:39 Active See Dose Instructions SQ UD PRN Loratadine 10 mg [Claritin 10 mg] Med 08/26/22 10:00 Discontinued 10 mg PO DAILY Magnesium Hydroxide 30 ml [Milk of Magnesia 30 ml Med 08/25/22 22:29 Discontinued ] 30 ml PO HS PRN PRN Magnesium Hydroxide 30 ml [Milk of Magnesia 30 ml Med 08/26/22 00:40 Active ] 30 ml PO HS PRN PRN Metoprolol Tartrate 25 mg [Lopressor 25MG Tab] Med 08/25/22 22:36 Discontinued 25 mg PO BID Metoprolol Tartrate 25 mg [Lopressor 25MG Tab] Med 08/26/22 00:41 Active 25 mg PO BID Montelukast Sodium 10 mg [Singulair 10 MG] Med 08/26/22 10:00 Active 10 mg PO DAILY NaCl 0.9% 1000 ml + KCl 20 Meq [Sodium Chloride 0.9% W/ Med 08/25/22 23:47 Discontinued 20 mEq KCl/LITER] 1,000 ml IV 50 mls/hr Potassium Chloride Tab* [Klor Con] Med 08/25/22 22:18 Discontinued 40 meq PO .STK-MED ONE Potassium Chloride Tab* [Klor Con] Med 08/25/22 21:59 Discontinued 40 meq PO STAT ONE Vancomycin HCl Inj [Vancocin Injection] 1 gm Med 08/25/22 23:00 Discontinued NaCl 0.9% 250 ml [Sodium Chloride 0.9% 250 ML] 250 ml IV Q12H Vancomycin/Water For Inj (Peg) [Vancomycin 1 Gram/200 Med 08/26/22 02:00 Discontinued ml Bag] 1 gm in 200 ml IV Q12H Vancomycin/Water For Inj (Peg) [Vancomycin 1 Gram/200 Med 08/26/22 20:00 Active ml Bag] 1 gm in 200 ml IV Q18H Oxygen Oxymizer LPM 15 lpm RT 08/26/22 01:03 Active Pulse Oximetry .continuos RT 08/26/22 01:03 Active Respiratory Therapy Assessment DAILY RT 08/25/22 17:03 Completed Respiratory Therapy Assessment DAILY RT 08/26/22 01:02 Active Patient Care Notes (Last 24 hours) 08/26/22 03:33 Nursing Note by Dottie Salazar cardizem drip was initially cont from the er @ 5mg/hr. Cardizem was titrated up to 7.5 @ 0100. Cardizem was titrated down to 5mg at 0230 and was paused at 0330. Initialized on 08/26/22 03:33 - END OF NOTE 08/26/22 00:51 Nursing Admission Note by Dottie Salazar 08/25/22 2322 pt arrived to room 129 via stretcher with er nurse. Pt assisted to bed, placed on yeast culture developer. Cardizem restarted at 5. pt aao x 4, resp even, unlabored. pt cont on 7l, spo sats 80s. RT at bs and increased pts oxygen to 15/l. pt denies chest pain/discomfort at this time. Assisted pt to bedpan. upon assessment, no skin issues noted at this time. pt informed news writer and household refrigerator mechanic that she did not wish to have any resuscitation measures such as cpr and/or intubation if warranted. Crew Member notified pts kathya Noland per pts request. Triny agreed and states he supports his mothers decisions. [address] Lopez pts decision. 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 Initialized on 08/26/22 00:51 - END OF NOTE 08/26/22 00:38 Nursing Note by Dottie Salazar Called Dr Lopez for order clarification for antibiotic therapy, code status, and to ask when does she want the chest x ray. Left message with [facility], awaiting call back. Notified household refrigerator mechanic at this time. Initialized on 08/26/22 00:38 - END OF NOTE 08/25/22 21:20 Respiratory Note by Tanja Parisi I PLACED THE PT ON A 7L OXYMIZER TO GET HER SPO2 >90% AFTER REVIEWING HER ABG RESULTS. Initialized on 08/25/22 21:20 - END OF NOTE (2) Hypokalemia Current Visit: Yes Status: Acute Code(s): E87.6 - HYPOKALEMIA (3) New onset a-fib Current Visit: Yes Status: Acute Code(s): I48.91 - UNSPECIFIED ATRIAL FIBRILLATION (4) Pneumonia Current Visit: Yes Status: Acute Code(s): J18.9 - PNEUMONIA, UNSPECIFIED ORGANISM
[2022-08-26] MEDS: Sodium Chloride 0.9% W/ 20 mEq KCl/LITER 1,000 ML IV SCH ×2 (13:03→17:11)
[2022-08-26] MEDS: Robitussin AC Syrup Unit Dose Cup PO PRN ×3 (13:03→21:02)
[2022-08-26] MEDS: Maxipime 2 GM** 2 G in Sodium Chloride 0.9% 100 ML IV SCH ×2 (13:03→21:04)
[2022-08-26] MEDS ORDERED: EPINEPHRINE 0.3 MG/0.3 ML SQ PRN (13:21)
[2022-08-26] MEDS ORDERED: BENADRYL 25 MG CAPSULE PO PRN (13:21)
[2022-08-26] MEDS: Singulair 10 MG PO SCH (13:48)
[2022-08-26] MEDS: TETRAHYDRALAZINE 0.05% Drops OP SCH (13:48)
[2022-08-26] MEDS: Lotrisone Cream TP SCH (13:48)
[2022-08-26] MEDS: Ocuvite Tablet PO SCH ×2 (13:48→21:03)
[2022-08-26] MEDS: Calcium 500MG W/Vit D Tablet PO SCH ×2 (13:48→21:04)
[2022-08-26] MEDS ORDERED: Nystatin SUSPENSION 60 ML PO SCH (15:00)
[2022-08-26] MEDS ORDERED: NYSTATIN 500000 UNIT PO SCH (15:00)
[2022-08-26] MEDS: Zocor 10MG PO SCH (15:46)
[2022-08-26] MEDS: Glucophage 500 MG PO SCH (15:46)
[2022-08-26] MEDS: VANCOMYCIN 1 GRAM/200 ML BAG 1 GM/200 ML PIGGYBACK IV SCH (20:06)
[2022-08-26] MEDS: Vitamin B-12 500 MCG PO SCH (21:01)
[2022-08-26] MEDS: TYLENOL 325 MG PO PRN (21:02)
[2022-08-26] MEDS: ENOXAPARIN SODIUM SQ SCH (21:02)
[2022-08-26] MEDS ORDERED: Lasix 20 MG/2 ML IV ONE (21:13)
[2022-08-26] MEDS ORDERED: NON-FORMULARY ITEM (Calcium Carb, Citrate/Vit D3 [Calcium + D3 Er Tablet] 1 EACH Tablet.Er PO SCH (22:00)
[2022-08-26] MEDS ORDERED: NON-FORMULARY ITEM (Mecobalamin [B12 Active] 1,000 MCG Tab.Chew) PO SCH (22:00)
[2022-08-26] MEDS ORDERED: NON-FORMULARY ITEM (Vit C/E/Zn/Coppr/Lutein/Zeaxan [Preservision Areds 2 Softgel] 1 EACH C PO SCH (22:00)
[2022-08-27] MEDS: Robitussin AC Syrup Unit Dose Cup PO PRN ×4 (03:46→22:15)
[2022-08-27 04:18] LABS: Absolute Neutrophil Ct (ANC) 22.43 x10^3/uL (1.4-6.9); BASOPHIL % 0.4 % (0.0-0.4); Basophil (Absolute #) 0.12 x10^3/uL (0-0.4); Eosinophil % 1.1 % (0.00-5.0); Hematocrit 34.5 % (35-47); Hemoglobin 11.4 g/dL (12.0-16.0); IMMATURE GRAN # 1.28 x10^3u/L (0.00-0.03); IMMATURE GRAN % 4.6 % (0.00-0.4); Lymphocyte (Absolute #) 2.51 x10^3/uL (1.0-4.6); Mean Cell Volume 89.6 fL (78-100); Mean Corpuscular Hemoglobin 29.6 pg (26-32); Mean Platelet Volume 8.6 fL (7.5-11.0); Monocyte (Absolute #) 1.17 x10^3/uL (0.0-1.3); Monocytes % 4.2 % (0.0-12.0); Neutrophil % 80.7 % (36.0-66.0); Platelet Count 481 x10^3/uL (150-450); Red Blood Count 3.85 x10^6/uL (4.1-5.4); Red Cell Distribution Width 12.5 % (11.5-14.0)
[2022-08-27 04:22] LABS: White Blood Count 27.8 x10^3/uL (4.0-10.5)
[2022-08-27 04:38] LABS: ANION GAP 9.9 MEQ/L (5-15); BLOOD UREA NITROGEN 11 mg/dL (7-17); CHLORIDE 103 mmol/L (98-107); Carbon Dioxide 24 mmol/L (22-30); Creatinine 1 0.58 mg/dL (0.52-1.04); EST GLOMERULAR FILTRATION RATE > 60.0 ML/MIN; Glucose 145 mg/dL (74-106); Potassium 3.9 mmol/L (3.5-5.1); SODIUM 133 mmol/L (137-145)
[2022-08-27] MEDS: Glucophage 500 MG PO SCH ×2 (07:40→17:40)
--- NOTE | 2022-08-27 08:50 | PCM.NOTE ---
Date and Time: 08/27/2249 Subjective Assessment: doing better - Review of Systems Constitutional: No Fever, No Chills Eyes: No Symptoms Ears, Nose, & Throat: No Symptoms Respiratory: Cough, Orthopnea, Short Of Breath Cardiac: No Chest Pain, No Edema, No Syncope Abdominal/Gastrointestinal: No Abdominal Pain, No Nausea, No Vomiting, No Diarrhea Genitourinary Symptoms: No Dysuria Musculoskeletal: No Back Pain, No Neck Pain Skin: No Rash Neurological: No Dizziness, No Focal Weakness, No Sensory Changes Psychological: No Symptoms Endocrine: No Symptoms Hematologic/Lymphatic: No Symptoms Immunological/Allergic: No Symptoms Objective Exam General Appearance: no apparent distress, alert Neurologic Exam: alert, oriented x 3, cooperative, normal mood/affect, nml cerebellar function, sensation nml, No motor deficits Skin Exam: normal color, warm, dry Eye Exam: PERRL, EOMI, eyes nml inspection Ears, Nose, Throat Exam: normal ENT inspection, pharynx normal, moist mucous membranes Neck Exam: normal inspection, non-tender, supple, full range of motion Respiratory Exam: diminished breath sounds, crackles/rales, rhonchi, wheezing, No respiratory distress Cardiovascular Exam: regular rate/rhythm, normal heart sounds Gastrointestinal/Abdomen Exam: soft, No tenderness, No mass Extremity Exam: normal inspection, normal range of motion Back Exam: normal inspection, normal range of motion, No CVA tenderness, No vertebral tenderness Pelvic Exam: deferred Rectal Exam: deferred OBJECTIVE DATA Vital Signs: Vital Signs - 24 hr Temp Pulse Resp BP Pulse Ox 08/27/22 07:04 97.9 F 98 H 20 151/63 90 L 08/27/22 03:51 98.6 F 75 24 129/70 91 L 08/26/22 23:36 98 F 80 22 113/52 92 L 08/26/22 20:00 99.2 F 86 22 128/66 91 L 08/26/22 18:45 89 20 96 08/26/22 15:31 97.7 F 80 27 H 129/61 91 L 08/26/22 12:00 98.6 F 86 21 94 L 08/26/22 09:47 74 22 95 Pain Assessment - Last Documented Pain Intensity 0 Pain Scale Used 0-10 Pain Scale Intake and Output: Intake & Output 08/24/22 08/25/22 08/26/22 08/27/22 11:59 11:59 11:59 11:59 Intake Total 620 1922 Output Total 600 1250 Balance 20 672 Weight 57 kg Lab Results: Lab Results-Last 24 Hours 08/26/22 08/26/22 08/27/22 Range/Units 09:15 12:10 04:15 WBC (4.0-10.5) x10^3/uL RBC (4.1-5.4) x10^6/uL Hgb (12.0-16.0) g/dL Hct (35-47) % MCV (78-100) fL MCH (26-32) pg MCHC (32-36) g/dL RDW (11.5-14.0) % Plt Count (150-450) x10^3/uL MPV (7.5-11.0) fL Gran % (36.0-66.0) % Immature Gran % (Auto) (0.00-0.4) % Nucleat RBC Rel Count (0.00-0.1) % Eos # (Auto) (0-0.5) x10^3/uL Immature Gran # (Auto) (0.00-0.03) x10^3u/L Absolute Lymphs (auto) (1.0-4.6) x10^3/uL Absolute Monos (auto) (0.0-1.3) x10^3/uL Absolute Nucleated RBC (0.00-0.01) x10^3u/L Lymphocytes % (24.0-44.0) % Monocytes % (0.0-12.0) % Eosinophils % (0.00-5.0) % Basophils % (0.0-0.4) % Absolute Granulocytes (1.4-6.9) x10^3/uL Basophils # (0-0.4) x10^3/uL Sodium (137-145) mmol/L Potassium (3.5-5.1) mmol/L Chloride (98-107) mmol/L Carbon Dioxide (22-30) mmol/L Anion Gap (5-15) MEQ/L BUN (7-17) mg/dL Creatinine (0.52-1.04) mg/dL Estimated GFR ML/MIN Glucose (74-106) mg/dL POC Glucometer 157 H (74 to 106) mg/dL Hemoglobin A1c 6.38 H (4.5-6.0) % Calcium (8.4-10.2) mg/dL TSH 3rd Generation 3.290 (0.47-4.68) mIU/L 08/27/22 08/27/22 08/27/22 Range/Units 04:15 04:15 07:34 WBC 27.8 H* (4.0-10.5) x10^3/uL RBC 3.85 L (4.1-5.4) x10^6/uL Hgb 11.4 L (12.0-16.0) g/dL Hct 34.5 L (35-47) % MCV 89.6 (78-100) fL MCH 29.6 (26-32) pg MCHC 33.0 (32-36) g/dL RDW 12.5 (11.5-14.0) % Plt Count 481 H (150-450) x10^3/uL MPV 8.6 (7.5-11.0) fL Gran % 80.7 H (36.0-66.0) % Immature Gran % (Auto) 4.6 H (0.00-0.4) % Nucleat RBC Rel Count 0.0 (0.00-0.1) % Eos # (Auto) 0.30 (0-0.5) x10^3/uL Immature Gran # (Auto) 1.28 H (0.00-0.03) x10^3u/L Absolute Lymphs (auto) 2.51 (1.0-4.6) x10^3/uL Absolute Monos (auto) 1.17 (0.0-1.3) x10^3/uL Absolute Nucleated RBC 0.00 (0.00-0.01) x10^3u/L Lymphocytes % 9.0 L (24.0-44.0) % Monocytes % 4.2 (0.0-12.0) % Eosinophils % 1.1 (0.00-5.0) % Basophils % 0.4 (0.0-0.4) % Absolute Granulocytes 22.43 H (1.4-6.9) x10^3/uL Basophils # 0.12 (0-0.4) x10^3/uL Sodium 133 L (137-145) mmol/L Potassium 3.9 (3.5-5.1) mmol/L Chloride 103 (98-107) mmol/L Carbon Dioxide 24 (22-30) mmol/L Anion Gap 9.9 (5-15) MEQ/L BUN 11 (7-17) mg/dL Creatinine 0.58 (0.52-1.04) mg/dL Estimated GFR > 60.0 ML/MIN Glucose 145 H (74-106) mg/dL POC Glucometer 125 H (74 to 106) mg/dL Hemoglobin A1c (4.5-6.0) % Calcium 9.0 (8.4-10.2) mg/dL TSH 3rd Generation (0.47-4.68) mIU/L Radiology Exams: Radiology Procedures Category Date Time Status CHEST 1 VIEW (PORTABLE) Stat Exams 08/25/22 16:21 Completed CHEST WITH CONTRAST [CT] Stat Exams 08/25/22 19:31 Completed Assessment/Plan (1) Sepsis Current Visit: Yes Status: Acute Qualifiers: Sepsis type: Pneumococcus Sepsis acute organ dysfunction status: with acute organ dysfunction Severe sepsis acute organ dysfunction type: acute respiratory failure Acute respiratory failure type: with hypoxia Severe sepsis shock status: with septic shock Qualified Code(s): A40.3 - Sepsis due to Streptococcus pneumoniae; R65.21 - Severe sepsis with septic shock; J96.01 - Acute respiratory failure with hypoxia (2) Hypokalemia Current Visit: Yes Status: Acute Code(s): E87.6 - HYPOKALEMIA (3) New onset a-fib Current Visit: Yes Status: Acute Code(s): I48.91 - UNSPECIFIED ATRIAL FIBRILLATION (4) Pneumonia Current Visit: Yes Status: Acute Code(s): J18.9 - PNEUMONIA, UNSPECIFIED ORGANISM
[2022-08-27] MEDS: Maxipime 2 GM** 2 G in Sodium Chloride 0.9% 100 ML IV SCH ×2 (09:23→22:20)
[2022-08-27] MEDS: Calcium 500MG W/Vit D Tablet PO SCH ×2 (09:23→21:23)
[2022-08-27] MEDS: Vitamin B-12 500 MCG PO SCH ×2 (09:23→21:23)
[2022-08-27] MEDS: Ocuvite Tablet PO SCH ×2 (09:24→21:23)
[2022-08-27] MEDS: TETRAHYDRALAZINE 0.05% Drops OP SCH ×2 (09:24→09:29)
[2022-08-27] MEDS: Zocor 10MG PO SCH (09:24)
[2022-08-27] MEDS: Singulair 10 MG PO SCH (09:24)
[2022-08-27] MEDS: ENOXAPARIN SODIUM SQ SCH ×2 (09:25→21:24)
[2022-08-27] MEDS: Lotrisone Cream TP SCH (09:26)
[2022-08-27] MEDS ORDERED: PHARMACY DOSING REQUEST MC ONE (11:56)
[2022-08-27] MEDS ORDERED: Sterile H2O 10 ml IJ ONE (13:57)
[2022-08-27] MEDS: VANCOMYCIN 1 GRAM/200 ML BAG 1 GM/200 ML PIGGYBACK IV SCH (13:58)
[2022-08-27] MEDS ORDERED: solu-MEDROL IV SCH (14:00)
[2022-08-27] MEDS: Sodium Chloride 0.9% W/ 20 mEq KCl/LITER 1,000 ML IV SCH (14:56)
[2022-08-27] MEDS ORDERED: Cardizem CD PO SCH (15:00)
[2022-08-27] MEDS: Tessalon Perles 100 MG PO PRN ×2 (15:30→21:23)
[2022-08-27] MEDS ORDERED: TROUGH DRUG LEVELS IJ ONE (15:45)
[2022-08-27] MEDS: LEVOFLOXACIN 750MG/150ML D5W 750 MG/150 ML BAG IV SCH (16:15)
[2022-08-27] MEDS ORDERED: Cardizem IV 50 MG/10 ML IV ONE (17:40)
[2022-08-27] MEDS: CARDIZEM DRIP 100 MG/100 ML D5W 100 ML IV PRN ×2 (19:56→23:36)
[2022-08-27] MEDS ORDERED: Sodium Chloride 0.9% 1000 ML 1,000 ML ONE (21:51)
[2022-08-27] MEDS: solu-MEDROL 40 MG, Sterile H2O 10 ml 1 ML IV SCH ×2 (22:19)
[2022-08-28] MEDS: Tessalon Perles 100 MG PO PRN ×2 (05:56→12:30)
[2022-08-28] MEDS: solu-MEDROL 40 MG, Sterile H2O 10 ml 1 ML IV SCH ×6 (05:56→20:49)
[2022-08-28 07:17] LABS: Hematocrit 34.6 % (35-47); Hemoglobin 11.6 g/dL (12.0-16.0); Mean Corpuscular Hemoglobin 29.5 pg (26-32); Mean Corpuscular Hgb Concent. 33.5 g/dL (32-36); Mean Platelet Volume 8.7 fL (7.5-11.0); Platelet Count 525 x10^3/uL (150-450); Red Blood Count 3.93 x10^6/uL (4.1-5.4); Red Cell Distribution Width 12.2 % (11.5-14.0)
[2022-08-28 07:43] LABS: ALBUMIN 2.5 g/dL (3.5-5.0); ALKALINE PHOSPHATASE 79 U/L (38-126); ANION GAP 14.4 MEQ/L (5-15); BLOOD UREA NITROGEN 13 mg/dL (7-17); CHLORIDE 100 mmol/L (98-107); Calcium 9.1 mg/dL (8.4-10.2); Carbon Dioxide 20 mmol/L (22-30); Creatinine 1 0.55 mg/dL (0.52-1.04); EST GLOMERULAR FILTRATION RATE > 60.0 ML/MIN; Glucose 175 mg/dL (74-106); Potassium 3.9 mmol/L (3.5-5.1); SGOT/AST 29 U/L (14-36); SGPT/ALT 41 U/L (0-35); SODIUM 130 mmol/L (137-145); Total Protein 5.6 g/dL (6.3-8.2)
[2022-08-28 07:47] LABS: White Blood Count 31.6 x10^3/uL (4.0-10.5)
--- NOTE | 2022-08-28 08:38 | XRAY ---
Indication: Pneumonia. Comparison: August 25, 2022 Portable chest continues to demonstrate worsening marked diffuse bilateral consolidating/nonconsolidating airspace disease with new small bibasilar effusions. Heart not enlarged.
[2022-08-28] MEDS: VANCOMYCIN 1 GRAM/200 ML BAG 1 GM/200 ML PIGGYBACK IV SCH ×2 (09:12→20:49)
[2022-08-28] MEDS: Glucophage 500 MG PO SCH ×2 (09:12→16:50)
[2022-08-28] MEDS: Ocuvite Tablet PO SCH ×2 (09:13→20:48)
[2022-08-28] MEDS: ENOXAPARIN SODIUM SQ SCH ×2 (09:13→20:48)
[2022-08-28] MEDS: Calcium 500MG W/Vit D Tablet PO SCH ×2 (09:13→20:48)
[2022-08-28] MEDS: Robitussin AC Syrup Unit Dose Cup PO PRN ×2 (09:13→14:33)
[2022-08-28] MEDS: Singulair 10 MG PO SCH (09:13)
[2022-08-28] MEDS: Vitamin B-12 500 MCG PO SCH ×2 (09:13→20:48)
[2022-08-28] MEDS: Zocor 10MG PO SCH (09:13)
[2022-08-28] MEDS: Maxipime 2 GM** 2 G in Sodium Chloride 0.9% 100 ML IV SCH ×2 (09:14→20:50)
[2022-08-28 09:23] LABS: Lymphocytes 6 % (24-44); Monocyte 2 % (0.0-12.0); Neutrophils 92 % (36.0-66.0); Platelet Estimate INCREASED (NORMAL); Total Cells Counted 100
[2022-08-28 09:24] LABS: ANISOCYTOSIS RARE; Toxic Granulation 2+
[2022-08-28] MEDS: Lotrisone Cream TP SCH (09:47)
[2022-08-28] MEDS: TETRAHYDRALAZINE 0.05% Drops OP SCH (09:47)
[2022-08-28] MEDS ORDERED: solu-MEDROL ONE (12:27)
[2022-08-28] MEDS: Cardizem CD PO SCH (12:30)
[2022-08-28] MEDS: Sodium Chloride 0.9% W/ 20 mEq KCl/LITER 1,000 ML IV SCH (16:50)
--- NOTE | 2022-08-28 17:48 | PCM.NOTE ---
Date and Time: 08/28/221745 Subjective Assessment: very short of breath - Review of Systems Constitutional: No Fever, No Chills Eyes: No Symptoms Ears, Nose, & Throat: No Symptoms Respiratory: Orthopnea, Short Of Breath, No Cough Cardiac: No Chest Pain, No Edema, No Syncope Abdominal/Gastrointestinal: No Abdominal Pain, No Nausea, No Vomiting, No Diarrhea Genitourinary Symptoms: No Dysuria Musculoskeletal: No Back Pain, No Neck Pain Skin: No Rash Neurological: No Dizziness, No Focal Weakness, No Sensory Changes Psychological: No Symptoms Endocrine: No Symptoms Hematologic/Lymphatic: No Symptoms Immunological/Allergic: No Symptoms Objective Exam General Appearance: moderate distress, alert Neurologic Exam: alert, oriented x 3, cooperative, normal mood/affect, sensation nml, No motor deficits Skin Exam: normal color, warm, dry Eye Exam: PERRL, EOMI, eyes nml inspection Ears, Nose, Throat Exam: normal ENT inspection, pharynx normal, moist mucous membranes Neck Exam: normal inspection, non-tender, supple, full range of motion Respiratory Exam: diminished breath sounds, crackles/rales, rhonchi, wheezing, No respiratory distress Cardiovascular Exam: irregular Gastrointestinal/Abdomen Exam: soft, No tenderness, No mass Extremity Exam: normal inspection, normal range of motion Back Exam: normal inspection, normal range of motion, No CVA tenderness, No vertebral tenderness Pelvic Exam: deferred Rectal Exam: deferred OBJECTIVE DATA Vital Signs: Vital Signs - 24 hr Temp Pulse Resp BP BP Pulse Ox 08/28/22 16:00 98.1 F 88 28 H 142/58 91 L 08/28/22 12:00 88 08/28/22 11:24 97.8 F 88 15 135/50 82 L 08/28/22 08:00 81 08/28/22 07:23 82 24 88 L 08/28/22 06:14 97.9 F 81 27 H 130/50 88 L 08/28/22 05:43 68 22 122/50 93 L 08/28/22 05:00 68 22 122/50 93 L 08/28/22 04:00 95 H 30 H 122/57 98 08/28/22 02:58 95 H 30 H 122/57 98 08/28/22 02:00 91 H 30 H 117/66 98 08/28/22 01:00 94 H 27 H 117/72 95 08/28/22 00:00 81 27 H 90/68 95 08/27/22 23:59 86 32 H 90/68 08/27/22 23:36 97 H 31 H 113/43 08/27/22 23:00 98.5 F 99 H 33 H 126/48 94 L 08/27/22 22:20 125 H 31 H 93 L 08/27/22 21:59 92 H 28 H 127/78 84 L 08/27/22 21:00 110 H 30 H 110/66 87 L 08/27/22 20:56 116 H 28 H 133/60 08/27/22 20:00 98.1 F 105 H 26 H 112/73 89 L 08/27/22 19:56 105 H 26 H 112/73 08/27/22 19:40 88 L 08/27/22 19:10 98.1 F 142 H 26 H 120/77 Pain Assessment - Last Documented Pain Intensity 0 Pain Scale Used 0-10 Pain Scale Intake and Output: Intake & Output 08/26/22 08/27/22 08/28/22 08/29/22 11:59 11:59 11:59 11:59 Intake Total 620 1922 3711 Output Total 600 1250 3300 Balance 20 672 411 Weight 57 kg 57 kg Lab Results: Lab Results-Last 24 Hours 08/27/22 08/28/22 08/28/22 Range/Units 21:58 07:11 07:11 WBC 31.6 H* (4.0-10.5) x10^3/uL RBC 3.93 L (4.1-5.4) x10^6/uL Hgb 11.6 L (12.0-16.0) g/dL Hct 34.6 L (35-47) % MCV 88.0 (78-100) fL MCH 29.5 (26-32) pg MCHC 33.5 (32-36) g/dL RDW 12.2 (11.5-14.0) % Plt Count 525 H (150-450) x10^3/uL MPV 8.7 (7.5-11.0) fL Segmented Neutrophils 92 H (36.0-66.0) % Lymphocytes (Manual) 6 L (24-44) % Monocytes (Manual) 2 (0.0-12.0) % Toxic Granulation 2+ Platelet Estimate INCREASED (NORMAL) RBC Morphology ABNORMAL Anisocytosis RARE Smear Path Review Pending Sodium 130 L (137-145) mmol/L Potassium 3.9 (3.5-5.1) mmol/L Chloride 100 (98-107) mmol/L Carbon Dioxide 20 L (22-30) mmol/L Anion Gap 14.4 (5-15) MEQ/L BUN 13 (7-17) mg/dL Creatinine 0.55 (0.52-1.04) mg/dL Estimated GFR > 60.0 ML/MIN Glucose 175 H (74-106) mg/dL POC Glucometer 180 H (74 to 106) mg/dL Calcium 9.1 (8.4-10.2) mg/dL Total Bilirubin 0.60 (0.2-1.3) mg/dL AST 29 (14-36) U/L ALT 41 H (0-35) U/L Alkaline Phosphatase 79 (38-126) U/L Serum Total Protein 5.6 L (6.3-8.2) g/dL Albumin 2.5 L (3.5-5.0) g/dL Vancomycin Trough (10-20) ug/mL 08/28/22 08/28/22 08/28/22 Range/Units 07:11 07:49 11:18 WBC (4.0-10.5) x10^3/uL RBC (4.1-5.4) x10^6/uL Hgb (12.0-16.0) g/dL Hct (35-47) % MCV (78-100) fL MCH (26-32) pg MCHC (32-36) g/dL RDW (11.5-14.0) % Plt Count (150-450) x10^3/uL MPV (7.5-11.0) fL Segmented Neutrophils (36.0-66.0) % Lymphocytes (Manual) (24-44) % Monocytes (Manual) (0.0-12.0) % Toxic Granulation Platelet Estimate (NORMAL) RBC Morphology Anisocytosis Smear Path Review Sodium (137-145) mmol/L Potassium (3.5-5.1) mmol/L Chloride (98-107) mmol/L Carbon Dioxide (22-30) mmol/L Anion Gap (5-15) MEQ/L BUN (7-17) mg/dL Creatinine (0.52-1.04) mg/dL Estimated GFR ML/MIN Glucose (74-106) mg/dL POC Glucometer 171 H 206 H (74 to 106) mg/dL Calcium (8.4-10.2) mg/dL Total Bilirubin (0.2-1.3) mg/dL AST (14-36) U/L ALT (0-35) U/L Alkaline Phosphatase (38-126) U/L Serum Total Protein (6.3-8.2) g/dL Albumin (3.5-5.0) g/dL Vancomycin Trough 7.63 L (10-20) ug/mL 08/28/22 Range/Units 17:01 WBC (4.0-10.5) x10^3/uL RBC (4.1-5.4) x10^6/uL Hgb (12.0-16.0) g/dL Hct (35-47) % MCV (78-100) fL MCH (26-32) pg MCHC (32-36) g/dL RDW (11.5-14.0) % Plt Count (150-450) x10^3/uL MPV (7.5-11.0) fL Segmented Neutrophils (36.0-66.0) % Lymphocytes (Manual) (24-44) % Monocytes (Manual) (0.0-12.0) % Toxic Granulation Platelet Estimate (NORMAL) RBC Morphology Anisocytosis Smear Path Review Sodium (137-145) mmol/L Potassium (3.5-5.1) mmol/L Chloride (98-107) mmol/L Carbon Dioxide (22-30) mmol/L Anion Gap (5-15) MEQ/L BUN (7-17) mg/dL Creatinine (0.52-1.04) mg/dL Estimated GFR ML/MIN Glucose (74-106) mg/dL POC Glucometer 186 H (74 to 106) mg/dL Calcium (8.4-10.2) mg/dL Total Bilirubin (0.2-1.3) mg/dL AST (14-36) U/L ALT (0-35) U/L Alkaline Phosphatase (38-126) U/L Serum Total Protein (6.3-8.2) g/dL Albumin (3.5-5.0) g/dL Vancomycin Trough (10-20) ug/mL Radiology Exams: Radiology Procedures Category Date Time Status CHEST 1 VIEW (PORTABLE) Routine Exams 08/28/22 08:00 Completed Assessment/Plan (1) Sepsis Current Visit: Yes Status: Acute Qualifiers: Sepsis type: Pneumococcus Sepsis acute organ dysfunction status: with acute organ dysfunction Severe sepsis acute organ dysfunction type: acute respiratory failure Acute respiratory failure type: with hypoxia Severe sepsis shock status: with septic shock Qualified Code(s): A40.3 - Sepsis due to Streptococcus pneumoniae; R65.21 - Severe sepsis with septic shock; J96.01 - Acute respiratory failure with hypoxia Assessment & Plan: Chief Complaint Diagnosis A-FIB, PNEUMONIA Admission Date Date 08/25/22 Allergies Allergy/AdvReac Type Severity Reaction Status Date / Time azithromycin Allergy Severe Tightness Verified 08/25/22 16:36 [From Zithromax Z-Ankit] of Throat Penicillins Allergy Severe Tightness Verified 08/25/22 16:36 of Throat xanthan gum Allergy Verified 08/25/22 16:36 xylitol Allergy Verified 08/25/22 16:36 Vital Signs (Last 24 hours) Temp Pulse Resp BP BP Pulse Ox 08/28/22 16:00 98.1 F 88 28 H 142/58 91 L 08/28/22 12:00 88 08/28/22 11:24 97.8 F 88 15 135/50 82 L 08/28/22 08:00 81 08/28/22 07:23 82 24 88 L 08/28/22 06:14 97.9 F 81 27 H 130/50 88 L 08/28/22 05:43 68 22 122/50 93 L 08/28/22 05:00 68 22 122/50 93 L 08/28/22 04:00 95 H 30 H 122/57 98 08/28/22 02:58 95 H 30 H 122/57 98 08/28/22 02:00 91 H 30 H 117/66 98 08/28/22 01:00 94 H 27 H 117/72 95 08/28/22 00:00 81 27 H 90/68 95 08/27/22 23:59 86 32 H 90/68 08/27/22 23:36 97 H 31 H 113/43 08/27/22 23:00 98.5 F 99 H 33 H 126/48 94 L 08/27/22 22:20 125 H 31 H 93 L 08/27/22 21:59 92 H 28 H 127/78 84 L 08/27/22 21:00 110 H 30 H 110/66 87 L 08/27/22 20:56 116 H 28 H 133/60 08/27/22 20:00 98.1 F 105 H 26 H 112/73 89 L 08/27/22 19:56 105 H 26 H 112/73 08/27/22 19:40 88 L 08/27/22 19:10 98.1 F 142 H 26 H 120/77 Current Medications Generic Name Dose Route Start Last Admin Trade Name Freq PRN Reason Stop Dose Admin Acetaminophen 650 mg 08/26/22 20:30 08/26/22 21:02 Acetaminophen 325 Mg Tablet PO 09/25/22 20:29 650 mg Q4H PRN PRN Administration PAIN AND/OR FEVER Benzonatate 100 mg 08/27/22 07:09 08/28/22 12:30 Benzonatate 100 Mg Capsule PO 09/26/22 07:08 100 mg TID PRN PRN Administration COUGH Calcium Carbonate 1 tab 08/26/22 14:00 08/28/22 09:13 Calcium Carbonate 500 Mg/Vitamin D 1 Tab Tablet PO 09/25/22 13:59 1 tab BID LELA Administration Clotrimazole 15 gm 08/26/22 14:00 08/28/22 09:47 Clotrimazole/Betamet Diprop 15 Gm Tube Cream TP 09/25/22 13:59 15 gm DAILY LELA Administration Methylprednisolone Sodium 0 mg 08/27/22 22:00 08/28/22 12:30 Succinate 40 mg/ Sterile Water IV 09/26/22 21:59 40 mg 1 ml Q8HT LELA Administration Cyanocobalamin 1,000 mcg 08/26/22 22:00 08/28/22 09:13 Cyanocobalamin 500 Mcg Tablet PO 09/25/22 21:59 1,000 mcg BID LELA Administration Diltiazem HCl 120 mg 08/28/22 14:00 08/28/22 12:30 Diltiazem Hcl Cd 120 Mg Cap.Sr.24h PO 09/27/22 13:59 120 mg DAILY LELA Administration Diphenhydramine HCl 50 mg 08/26/22 13:21 Diphenhydramine Hcl 25 Mg Capsule PO 09/25/22 13:20 Q4-6HPRN PRN ALLERGIES Docusate Sodium 100 mg 08/26/22 12:29 Docusate Sodium 100 Mg Capsule PO 09/25/22 12:28 BIDPRN PRN CONSTIPATION Enoxaparin Sodium 60 mg 08/26/22 22:00 08/28/22 09:13 Enoxaparin Sodium 60 Mg/0.6 Ml Syringe SQ 09/25/22 21:59 60 mg BID LELA Administration Guaifenesin/Codeine Phosphate 5 ml 08/26/22 12:29 08/28/22 14:33 Guaifenesin/Codeine Phosphate 5 Ml Udcup PO 09/25/22 12:28 5 ml Q4H PRN PRN Administration COUGH Potassium Chloride/Sodium Chloride 1,000 mls @ 50 mls/hr 08/26/22 12:30 0 08/28/22 16:50 Sodium Chloride 0.9% W/ 20 Meq Kcl/Liter IV 09/25/22 12:29 50 mls/hr .Q20H LELA Administration Cefepime HCl 2 g/ Sodium 100 mls @ 200 mls/hr 08/26/22 13:00 08/28/22 09:14 Chloride IV 09/25/22 12:59 200 mls/hr Q12HT LELA Administration Levofloxacin/Dextrose 750 mg in 150 mls @ 100 mls/hr 08/27/22 14:00 08/27/22 16:15 Levofloxacin 750mg/150ml D5w IV 09/26/22 13:59 100 mls/hr Q48H LELA Administration Diltiazem HCl 100 mls @ 5 mls/hr 08/27/22 18:52 08/27/22 23:59 Cardizem Drip 100 Mg/100 Ml D5w IV 09/26/22 18:51 0 mg/hr .Q20H PRN 0 mls/hr HEART RATE/ A-FIB Titration Protocol 5 MG/HR Vancomycin HCl 1 gm in 200 mls @ 133.333 mls/hr 08/28/22 21:00 Vancomycin 1 Gram/200 Ml Bag IV 09/27/22 20:59 Q12H LELA Insulin Human Regular 0 unit 08/26/22 12:30 Insulin Regular, Human 1 Unit SQ 09/25/22 12:29 UD PRN HYPERGLYCEMIA Metformin HCl 500 mg 08/26/22 16:30 08/28/22 16:50 Metformin Hcl 500 Mg Tablet PO 09/25/22 16:29 500 mg BIDAC LELA Administration Montelukast Sodium 10 mg 08/26/22 14:00 08/28/22 09:13 Montelukast Sodium 10 Mg Tablet PO 09/25/22 13:59 10 mg DAILY LELA Administration Multivitamins/Minerals 1 tab 08/26/22 14:00 08/28/22 09:13 Beta-Carotene(A) W-C And E/Min 1 Tab Tablet PO 09/25/22 13:59 1 tab BID LELA Administration Simvastatin 10 mg 08/26/22 14:00 08/28/22 09:13 Simvastatin 10 Mg Tablet PO 09/25/22 13:59 10 mg DAILY LELA Administration Tetrahydrozoline HCl 15 ml 08/26/22 14:00 08/28/22 09:47 Tetrahydrozoline Hcl 15 Ml Bottle Eye Drops OP 09/25/22 13:59 15 ml DAILY LELA Administration Discontinued Medications Generic Name Dose Route Start Last Admin Trade Name Freq PRN Reason Stop Dose Admin Acetaminophen 650 mg 08/25/22 22:29 Acetaminophen 325 Mg Tablet PO 09/24/22 22:28 Q4H PRN PRN PAIN, FEVER, HEADACHE Acetaminophen 650 mg 08/26/22 00:31 Acetaminophen 325 Mg Tablet PO 09/25/22 00:30 Q4H PRN PRN PAIN, FEVER, HEADACHE Albuterol/Ipratropium 3 ml 08/25/22 16:37 08/25/22 16:52 Ipratropium/Albuterol Sulfate 3 Ml Ampul.Neb 08/25/22 16:38 3 ml STAT ONE Administration Albuterol/Ipratropium Confirm 08/25/22 16:39 Ipratropium/Albuterol Sulfate 3 Ml Ampul.Neb Administered 08/25/22 16:40 Dose 3 ml IH .STK-MED ONE Albuterol/Ipratropium 3 ml 08/25/22 22:29 Ipratropium/Albuterol Sulfate 3 Ml Ampul.Neb 09/25/22 00:59 Q6HRT PRN SHORTNESS OF BREATH/WHEEZING Albuterol/Ipratropium Confirm 08/26/22 00:25 Ipratropium/Albuterol Sulfate 3 Ml Ampul.Neb Administered 08/26/22 00:26 Dose 3 ml IH .STK-MED ONE Albuterol/Ipratropium 3 ml 08/26/22 00:32 08/26/22 09:37 Ipratropium/Albuterol Sulfate 3 Ml Ampul.Neb 09/25/22 00:44 3 ml QID PRN PRN Administration SHORTNESS OF BREATH/WHEEZING Benzonatate 100 mg 08/25/22 23:00 Benzonatate 100 Mg Capsule PO 08/30/22 23:01 TID PRN LELA Benzonatate 100 mg 08/26/22 00:33 08/26/22 09:02 Benzonatate 100 Mg Capsule PO 09/25/22 00:32 100 mg TID PRN PRN Administration COUGH Cefepime HCl Confirm 08/26/22 02:36 Cefepime Hcl 2 Gm Vial Administered 08/26/22 02:37 Dose 2 g .ROUTE .STK-MED ONE Device 1 08/27/22 15:45 Therapuetic Drug Level Monitor Each IJ 08/27/22 15:46 1XONLY ONE Digoxin 0.25 mg 08/25/22 20:24 08/25/22 20:31 Digoxin 0.5 Mg/2 Ml Injection IV 08/25/22 20:25 0.25 mg STAT ONE Administration Digoxin Confirm 08/25/22 20:28 Digoxin 0.5 Mg/2 Ml Injection Administered 08/25/22 20:29 Dose 0.5 mg .ROUTE .STK-MED ONE Digoxin 0.25 mg 08/25/22 21:10 08/25/22 23:57 Digoxin 0.5 Mg/2 Ml Injection IV 08/25/22 21:11 Not Given STAT ONE Digoxin 0.25 mg 08/25/22 21:29 08/25/22 22:40 Digoxin 0.5 Mg/2 Ml Injection IV 08/25/22 21:30 Not Given STAT ONE Diltiazem HCl 10 mg 08/25/22 16:51 08/25/22 16:54 Diltiazem Hcl Iv 5 Mg/Ml Vial IV 08/25/22 16:52 10 mg STAT ONE Administration Diltiazem HCl Confirm 08/25/22 16:52 Diltiazem Hcl Iv 5 Mg/Ml Vial Administered 08/25/22 16:53 Dose 50 mg IV .STK-MED ONE Diltiazem HCl 10 mg 08/25/22 17:54 08/25/22 18:03 Diltiazem Hcl Iv 5 Mg/Ml Vial IV 08/25/22 17:55 10 mg STAT ONE Administration Diltiazem HCl 120 mg 08/27/22 15:00 08/27/22 14:56 Diltiazem Hcl Cd 120 Mg Cap.Sr.24h PO 09/26/22 14:59 120 mg DAILY LELA Administration Diltiazem HCl 5 mg 08/27/22 17:40 08/27/22 17:50 Diltiazem Hcl Iv 5 Mg/Ml Vial IV 08/27/22 17:41 5 mg ONCE ONE Administration Diphenhydramine HCl 25 mg 08/25/22 23:47 Diphenhydramine Hcl 25 Mg Capsule PO 09/24/22 23:46 Q6H PRN PRN ITCHING Docusate Sodium 100 mg 08/25/22 22:29 Docusate Sodium 100 Mg Capsule PO 09/24/22 22:28 BIDPRN PRN CONSTIPATION Docusate Sodium 100 mg 08/26/22 00:34 08/26/22 09:02 Docusate Sodium 100 Mg Capsule PO 09/25/22 00:33 100 mg BIDPRN PRN Administration CONSTIPATION Doxycycline Hyclate Confirm 08/25/22 17:54 Doxycycline Hyclate 100 Mg/Vial Injection Administered 08/25/22 17:55 Dose 100 mg IV .STK-MED ONE Doxycycline Hyclate Confirm 08/26/22 02:36 Doxycycline Hyclate 100 Mg/Vial Injection Administered 08/26/22 02:37 Dose 100 mg IV .STK-MED ONE Enoxaparin Sodium 60 mg 08/25/22 22:04 08/25/22 22:56 Enoxaparin Sodium 60 Mg/0.6 Ml Syringe SQ 08/25/22 22:05 60 mg STAT ONE Administration Enoxaparin Sodium 60 mg 08/26/22 10:00 Enoxaparin Sodium 40 Mg/0.4 Ml Syringe SQ 09/25/22 09:59 BID LELA Enoxaparin Sodium 60 mg 08/26/22 10:00 08/26/22 09:02 Enoxaparin Sodium 60 Mg/0.6 Ml Syringe SQ 09/25/22 09:59 60 mg BID LELA Administration Furosemide 20 mg 08/26/22 21:13 08/25/22 21:36 Furosemide 20 Mg/Vial IV 08/26/22 21:14 20 mg ONCE ONE Administration Furosemide Confirm 08/25/22 21:34 Furosemide 20 Mg/Vial Administered 08/25/22 21:35 Dose 20 mg .ROUTE .STK-MED ONE Ceftriaxone Sodium/Dextrose 1 g in 50 mls @ 100 mls/hr 08/25/22 17:02 08/25/22 17:41 Rocephin 1 Gm-D5w 50 Ml Bag IV 08/25/22 17:31 Infused STAT STA Infusion Ceftriaxone Sodium/Dextrose Confirm 08/25/22 17:03 Rocephin 1 Gm-D5w 50 Ml Bag Administered 08/25/22 17:04 Dose 1 g in 50 mls @ ud IV .STK-MED ONE Doxycycline Hyclate 100 mg/ 100 mls @ 100 mls/hr 08/25/22 22:00 Dextrose IV 09/24/22 21:59 Q12HT LELA Doxycycline Hyclate 100 mg/ 100 mls @ 100 mls/hr 08/25/22 17:36 08/25/22 18:04 Dextrose IV 09/24/22 17:35 100 mls/hr Q12HT LELA Administration Dextrose Confirm 08/25/22 17:54 D5w 100ml Mini Bag 100 Ml Administered 08/25/22 17:55 Dose 100 mls @ ud IV .STK-MED ONE Diltiazem HCl 100 mls @ 5 mls/hr 08/25/22 18:37 08/25/22 20:43 Cardizem Drip 100 Mg/100 Ml D5w IV 09/24/22 18:36 10 mg/hr .Q20H PRN 10 mls/hr HEART RATE/ A-FIB Titration Protocol 5 MG/HR Cefepime HCl 2 g/ Dextrose 100 mls @ 200 mls/hr 08/25/22 22:45 08/26/22 07:21 IV 09/01/22 22:44 Not Given Q8H LELA Vancomycin HCl 1 gm/ Sodium 250 mls @ 125 mls/hr 08/25/22 23:00 08/26/22 07:22 Chloride IV 09/01/22 22:59 Not Given Q12H LELA Diltiazem HCl Confirm 08/25/22 19:09 Cardizem Drip 100 Mg/100 Ml D5w Administered 08/25/22 19:10 Dose 100 mls @ ud IV .STK-MED ONE Potassium Chloride/Sodium Chloride 1,000 mls @ 50 mls/hr 08/25/22 23:47 03/10/15 09:23 Sodium Chloride 0.9% W/ 20 Meq Kcl/Liter IV 08/26/22 09:46 50 mls/hr .Q20H LELA Infusion Diltiazem HCl 100 mls @ 5 mls/hr 08/26/22 00:34 Cardizem Drip 100 Mg/100 Ml D5w IV 09/25/22 00:33 .Q20H PRN HEART RATE/ A-FIB Protocol 5 MG/HR Cefepime HCl 2 g/ Dextrose 100 mls @ 200 mls/hr 08/26/22 01:15 08/26/22 03:22 IV 09/25/22 01:14 200 mls/hr Q8H LELA Administration Doxycycline Hyclate 100 mg/ 100 mls @ 100 mls/hr 08/26/22 02:00 08/26/22 05:05 Dextrose IV 09/25/22 01:59 100 mls/hr Q12HT LELA Administration Vancomycin HCl 1 gm in 200 mls @ 125 mls/hr 08/26/22 02:00 08/26/22 02:29 Vancomycin 1 Gram/200 Ml Bag IV 09/25/22 01:59 125 mls/hr Q12H LELA Administration Dextrose Confirm 08/26/22 02:37 D5w 100ml Mini Bag 100 Ml Administered 08/26/22 02:38 Dose 200 mls @ ud IV .STK-MED ONE Diltiazem HCl 100 mls @ 5 mls/hr 08/26/22 02:43 Cardizem Drip 100 Mg/100 Ml D5w IV 09/25/22 02:42 .Q20H PRN HEART RATE/ A-FIB Protocol 5 MG/HR Doxycycline Hyclate 100 mg/ 100 mls @ 100 mls/hr 08/26/22 22:00 Dextrose IV 09/25/22 21:59 Q12HT LELA Cefepime HCl 2 g/ Dextrose 100 mls @ 200 mls/hr 08/26/22 14:00 IV 09/25/22 13:59 Q8HT LELA Vancomycin HCl 1 gm in 200 mls @ 125 mls/hr 08/26/22 20:00 Vancomycin 1 Gram/200 Ml Bag IV 09/25/22 19:59 Q18H [facility] Vancomycin HCl 1 gm in 200 mls @ 125 mls/hr 08/26/22 20:00 08/28/22 09:12 Vancomycin 1 Gram/200 Ml Bag IV 09/25/22 19:59 125 mls/hr Q18H [facility] Administration Cefepime HCl 2 g/ Dextrose 100 mls @ 200 mls/hr 08/26/22 13:00 IV 09/25/22 12:59 Q12HT [facility] Sodium Chloride Confirm 08/27/22 21:51 Sodium Chloride 0.9% 1000 Ml Administered 08/27/22 21:52 Dose 1,000 mls @ ud .ROUTE .STK-MED ONE Insulin Human Regular 0 unit 08/25/22 22:29 Insulin Regular, Human 1 Unit SQ 09/24/22 22:28 UD PRN HYPERGLYCEMIA Insulin Human Regular 0 unit 08/26/22 00:39 Insulin Regular, Human 1 Unit SQ 09/25/22 00:38 UD PRN HYPERGLYCEMIA Loratadine 10 mg 08/26/22 10:00 Loratadine 10 Mg Tablet PO 09/25/22 09:59 DAILY [facility] Magnesium Hydroxide 30 ml 08/25/22 22:29 Magnesium Hydroxide 30 Ml Udcup PO 09/24/22 22:28 HS PRN PRN CONSTIPATION Magnesium Hydroxide 30 ml 08/26/22 00:40 Magnesium Hydroxide 30 Ml Udcup PO 09/25/22 00:39 HS PRN PRN CONSTIPATION Methylprednisolone Sodium Succinate 40 mg 08/27/22 14:00 08/27/22 13:59 Methylprednisolone Sod Suc 40m 40 Mg/Ml Vial IV 09/26/22 13:59 40 mg Q8HT LELA Administration Methylprednisolone Sodium Succinate Confirm 08/28/22 12:27 Methylprednisolone Sod Suc 40m 40 Mg/Ml Vial Administered 08/28/22 12:28 Dose 40 mg .ROUTE .STK-MED ONE Metoprolol Tartrate 25 mg 08/25/22 22:36 08/26/22 07:21 Metoprolol Tartrate 25 Mg Tab PO 09/24/22 22:35 Not Given BID [facility] Metoprolol Tartrate 25 mg 08/26/22 00:41 08/26/22 09:02 Metoprolol Tartrate 25 Mg Tab PO 09/25/22 00:40 25 mg BID LELA Administration Montelukast Sodium 10 mg 08/26/22 10:00 08/26/22 09:02 Montelukast Sodium 10 Mg Tablet PO 09/25/22 09:59 10 mg DAILY LELA Administration Non-Formulary Medication 0.3 ml 08/26/22 13:21 Epinephrine [Epipen 2-Ankit] SQ UD PRN ALLERGIES Non-Formulary Medication 1 each 08/27/22 11:56 08/27/22 15:11 Pharmacy Dosing Request MC 08/27/22 11:57 1 each STAT ONE Administration Nystatin 5 ml 08/26/22 15:00 Nystatin 60 Ml Suspension Bottle PO 09/25/22 14:59 5XD LELA Potassium Chloride 40 meq 08/25/22 21:59 08/25/22 22:19 Potassium Chloride Tab 10 Meq Tab PO 08/25/22 22:00 40 meq STAT ONE Administration Potassium Chloride Confirm 08/25/22 22:18 Potassium Chloride Tab 10 Meq Tab Administered 08/25/22 22:19 Dose 40 meq PO .STK-MED ONE Sterile Water Confirm 08/27/22 13:57 Water For Injection,Sterile 10 Ml Vial Administered 08/27/22 13:58 Dose 10 ml IJ .STK-MED ONE Intake & Output (Last 24 hours) 08/26/22 08/27/22 08/28/22 08/29/22 11:59 11:59 11:59 11:59 Intake Total 620 1922 3711 Output Total 600 1250 3300 Balance 20 672 411 Weight 57 kg 57 kg Laboratory Results (Last 24 hours) 08/28/22 08/28/22 08/28/22 17:01 11:18 07:49 WBC RBC Hgb Hct MCV MCH MCHC RDW Plt Count MPV Segmented Neutrophils Lymphocytes (Manual) Monocytes (Manual) Toxic Granulation Platelet Estimate RBC Morphology Anisocytosis Sodium Potassium Chloride Carbon Dioxide Anion Gap BUN Creatinine Estimated GFR Glucose POC Glucometer 186 H 206 H 171 H Calcium Total Bilirubin AST ALT Alkaline Phosphatase Serum Total Protein Albumin Vancomycin Trough 08/28/22 08/28/22 08/28/22 07:11 07:11 07:11 WBC 31.6 H* RBC 3.93 L Hgb 11.6 L Hct 34.6 L MCV 88.0 MCH 29.5 MCHC 33.5 RDW 12.2 Plt Count 525 H MPV 8.7 Segmented Neutrophils 92 H Lymphocytes (Manual) 6 L Monocytes (Manual) 2 Toxic Granulation 2+ Platelet Estimate INCREASED RBC Morphology ABNORMAL Anisocytosis RARE Sodium 130 L Potassium 3.9 Chloride 100 Carbon Dioxide 20 L Anion Gap 14.4 BUN 13 Creatinine 0.55 Estimated GFR > 60.0 Glucose 175 H POC Glucometer Calcium 9.1 Total Bilirubin 0.60 AST 29 ALT 41 H Alkaline Phosphatase 79 Serum Total Protein 5.6 L Albumin 2.5 L Vancomycin Trough 7.63 L 08/27/22 21:58 WBC RBC Hgb Hct MCV MCH MCHC RDW Plt Count MPV Segmented Neutrophils Lymphocytes (Manual) Monocytes (Manual) Toxic Granulation Platelet Estimate RBC Morphology Anisocytosis Sodium Potassium Chloride Carbon Dioxide Anion Gap BUN Creatinine Estimated GFR Glucose POC Glucometer 180 H Calcium Total Bilirubin AST ALT Alkaline Phosphatase Serum Total Protein Albumin Vancomycin Trough Orders (Last 24 hours) Category Date Time Status Catheter Care Record Q6H Care 08/27/22 22:06 Active Kapoor [Catheter-Chadwick Kapoor] STAT Care 08/27/22 22:05 Active CHEST 1 VIEW (PORTABLE) Routine Exams 08/28/22 08:00 Completed CBC W DIFF AM.LAB Lab 08/28/22 07:11 Results CMP AM.LAB Lab 08/28/22 07:11 Completed Manual Differential NC Routine Lab 08/28/22 07:11 Results POCT GLUCOSE Stat Lab 08/27/22 21:58 Completed POCT GLUCOSE Stat Lab 08/28/22 07:49 Completed POCT GLUCOSE Stat Lab 08/28/22 11:18 Completed POCT GLUCOSE Stat Lab 08/28/22 17:01 Completed Pathologist Review Routine Lab 08/28/22 07:11 Results Vancomycin, Trough Urgent Lab 08/28/22 07:11 Completed Diltiazem HCl 100 mg/100 ml [Cardizem Drip 100 mg/100 Med 08/27/22 18:52 Hold ml D5w] 100 ml IV 5 mg/hr Diltiazem HCl 50 mg/10 ml [Cardizem IV 50 MG/10 ML Med 08/27/22 17:40 Discontinued *] 5 mg IV ONCE ONE Diltiazem HCl Cd [Cardizem CD ] Med 08/28/22 14:00 Active 120 mg PO DAILY Methylprednisolone Sod Suc 40M [solu-MEDROL] Med 08/28/22 12:27 Discontinued 40 mg .ROUTE .STK-MED ONE Methylprednisolone Sod Suc 40M [solu-MEDROL] 40 mg Med 08/27/22 22:00 Active Water For Injection,Sterile [Sterile H2O 10 ml] 1 ml IV Q8HT NaCl 0.9% 1000 ml [Sodium Chloride 0.9% 1000 ML] 1,000 Med 08/27/22 21:51 Discontinued ml .ROUTE UD Vancomycin/Water For Inj (Peg) [Vancomycin 1 Gram/200 Med 08/28/22 21:00 Active ml Bag] 1 gm in 200 ml IV Q12H BiPap/CPAP ROUTINE RT 08/27/22 22:05 Active Patient Care Notes (Last 24 hours) 08/28/22 12:08 (created 08/28/22 12:12) Nursing Note by Lisa Luz rounded on patient. Initialized on 08/28/22 12:12 - END OF NOTE 08/28/22 05:38 Nursing Note by Dottie Salazar pt aao x 4, resp even, unlabored at this time. provided pt with reading cheryl al. pt denies pain/discomfort at this time. will cont to monitor. Initialized on 08/28/22 05:38 - END OF NOTE 08/27/22 22:07 Nursing Note by Dottie Salazar updated Dr Reynoso pt has not voided on this shift. pt states she has the urge to void, but unable to void at time. Notified md that pt spo2 sats 84% at this time. Telephone order place pt on bipap and place kapoor cath. notified RT, awaiting on therapist at this time./ Initialized on 08/27/22 22:07 - END OF NOTE 08/27/22 21:38 Nursing Note by Dottie Salazar assisted pt with hydration, educated pt on plan of care. pt states she still does not have the urge to void. will cont to closely monitor. Initialized on 08/27/22 21:38 - END OF NOTE 08/27/22 20:42 Nursing Note by Dottie Salazar recheck spo2 @ 88% Initialized on 08/27/22 20:42 - END OF NOTE 08/27/22 20:27 Nursing Note by Dottie Salazar Pt spo2 decreased to 85-86%, per pt she is a mouth sleeper. changed to non rebreather for comfort o2 sats to 84-85%. Notifed RT to see if pt would benefit from high flow therapy. Awaiting RT at this time. Initialized on 08/27/22 20:27 - END OF NOTE 08/27/22 20:02 Nursing Note by Dottie Salazar 191 Cardizem increased to 10mg. 193 hr 150s, bp 135/78 cardizem increased to 12.5mg Initialized on 08/27/22 20:02 - END OF NOTE 08/27/22 19:49 Nursing Note by Dottie Salazar 1900 received pt lying in bed on oxygen therapy @ 15L. Pt aao x 4. Pt denies pain/discomfort at this time. 1909 Pts afib on youth nutritional monitor, hr 140s. Pt started on cardizem @ 5mg at this time. 1910 #20 PIV started in RT hand, bld return noted, flushes easily, pt tolerated well. 1914 Assisted pt to bedpan, per pt she is unable to use bedpan at this time. Due to pts hr and oxygen demands, pt on bedrest at this time. White board updated, call light within reach. Will cont to closely monitor. Initialized on 08/27/22 19:49 - END OF NOTE 08/27/22 18:35 Nursing Note by Lauren Kumar patient HR still in 140's. Will transfer to ICU with cardizem drip at 5mg/hr per Dr Reynoso Initialized on 08/27/22 18:35 - END OF NOTE (2) Hypokalemia Current Visit: Yes Status: Resolved Code(s): E87.6 - HYPOKALEMIA (3) New onset a-fib Current Visit: Yes Status: Acute Code(s): I48.91 - UNSPECIFIED ATRIAL FIBRILLATION (4) Pneumonia Current Visit: Yes Status: Acute Code(s): J18.9 - PNEUMONIA, UNSPECIFIED ORGANISM
[2022-08-29] MEDS: TYLENOL 325 MG PO PRN (00:47)
[2022-08-29] MEDS: Robitussin AC Syrup Unit Dose Cup PO PRN ×4 (00:47→15:53)
[2022-08-29] MEDS: solu-MEDROL 40 MG, Sterile H2O 10 ml 1 ML IV SCH ×6 (05:29→21:34)
[2022-08-29] MEDS: Sodium Chloride 0.9% W/ 20 mEq KCl/LITER 1,000 ML IV SCH ×3 (07:20→16:01)
[2022-08-29] MEDS: Glucophage 500 MG PO SCH ×2 (07:21→16:02)
[2022-08-29] MEDS ORDERED: TETRAHYDRALAZINE 0.05% Drops OP PRN (07:45)
[2022-08-29 07:51] LABS: Absolute Neutrophil Ct (ANC) 27.51 x10^3/uL (1.4-6.9); BASOPHIL % 0.3 % (0.0-0.4); Basophil (Absolute #) 0.08 x10^3/uL (0-0.4); Eosinophil % 0.4 % (0.00-5.0); Eosinophil (Absolute #) 0.12 x10^3/uL (0-0.5); Hematocrit 31.6 % (35-47); Hemoglobin 10.7 g/dL (12.0-16.0); IMMATURE GRAN # 0.52 x10^3u/L (0.00-0.03); IMMATURE GRAN % 1.7 % (0.00-0.4); Lymphocyte (Absolute #) 0.91 x10^3/uL (1.0-4.6); Mean Cell Volume 87.5 fL (78-100); Mean Corpuscular Hemoglobin 29.6 pg (26-32); Mean Corpuscular Hgb Concent. 33.9 g/dL (32-36); Mean Platelet Volume 8.9 fL (7.5-11.0); Monocyte (Absolute #) 1.16 x10^3/uL (0.0-1.3); Monocytes % 3.8 % (0.0-12.0); Neutrophil % 90.8 % (36.0-66.0); Platelet Count 596 x10^3/uL (150-450); Red Blood Count 3.61 x10^6/uL (4.1-5.4); Red Cell Distribution Width 12.4 % (11.5-14.0)
[2022-08-29 07:56] LABS: ALBUMIN 2.8 g/dL (3.5-5.0); ALKALINE PHOSPHATASE 76 U/L (38-126); ANION GAP 11.6 MEQ/L (5-15); BLOOD UREA NITROGEN 23 mg/dL (7-17); CHLORIDE 104 mmol/L (98-107); Carbon Dioxide 21 mmol/L (22-30); Creatinine 1 0.58 mg/dL (0.52-1.04); EST GLOMERULAR FILTRATION RATE > 60.0 ML/MIN; Glucose 211 mg/dL (74-106); Potassium 4.1 mmol/L (3.5-5.1); SGOT/AST 90 U/L (14-36); SGPT/ALT 104 U/L (0-35); SODIUM 133 mmol/L (137-145)
[2022-08-29] MEDS: VANCOMYCIN 1 GRAM/200 ML BAG 1 GM/200 ML PIGGYBACK IV SCH (08:00)
[2022-08-29 08:06] LABS: White Blood Count 30.3 x10^3/uL (4.0-10.5)
[2022-08-29 09:01] LABS: Lymphocytes 1 % (24-44); Monocyte 4 % (0.0-12.0); Neutrophils 95 % (36.0-66.0); Platelet Estimate INCREASED (NORMAL); Total Cells Counted 100
[2022-08-29] MEDS: ENOXAPARIN SODIUM SQ SCH ×2 (09:24→21:33)
[2022-08-29] MEDS: Cardizem CD PO SCH (09:24)
[2022-08-29] MEDS: Tessalon Perles 100 MG PO PRN (09:24)
[2022-08-29] MEDS: Zocor 10MG PO SCH (09:24)
[2022-08-29] MEDS: Calcium 500MG W/Vit D Tablet PO SCH ×2 (09:29→21:33)
[2022-08-29] MEDS: Ocuvite Tablet PO SCH ×2 (09:30→21:33)
[2022-08-29] MEDS: Lotrisone Cream TP SCH (09:30)
[2022-08-29] MEDS: Singulair 10 MG PO SCH (09:30)
[2022-08-29] MEDS: Vitamin B-12 500 MCG PO SCH ×2 (09:31→21:33)
[2022-08-29] MEDS: Maxipime 2 GM** 2 G in Sodium Chloride 0.9% 100 ML IV SCH (09:40)
[2022-08-29] MEDS: Ativan 2 MG/1 ML VIAL IV PRN ×3 (09:57→21:29)
--- NOTE | 2022-08-29 12:34 | PCM.NOTE ---
Date and Time: 08/29/22 1232 Subjective Assessment: still very short of breath - Review of Systems Constitutional: Lethargy, Weakness, No Fever, No Chills Eyes: No Symptoms Ears, Nose, & Throat: No Symptoms Respiratory: Orthopnea, Short Of Breath, Wheezing, No Cough Cardiac: No Chest Pain, No Edema, No Syncope Abdominal/Gastrointestinal: No Abdominal Pain, No Nausea, No Vomiting, No Diarrhea Genitourinary Symptoms: No Dysuria Musculoskeletal: No Back Pain, No Neck Pain Skin: No Rash Neurological: No Dizziness, No Focal Weakness, No Sensory Changes Psychological: No Symptoms Endocrine: No Symptoms Hematologic/Lymphatic: No Symptoms Immunological/Allergic: No Symptoms Objective Exam General Appearance: moderate distress Neurologic Exam: alert, confusion, No motor deficits Skin Exam: normal color, warm, dry Eye Exam: PERRL, EOMI, eyes nml inspection Ears, Nose, Throat Exam: normal ENT inspection, pharynx normal, moist mucous membranes Neck Exam: normal inspection, non-tender, supple, full range of motion Respiratory Exam: diminished breath sounds, accessory muscle use, crackles/rales, rhonchi, wheezing, No respiratory distress Cardiovascular Exam: regular rate/rhythm, normal heart sounds Gastrointestinal/Abdomen Exam: soft, No tenderness, No mass Extremity Exam: normal inspection, normal range of motion Back Exam: normal inspection, normal range of motion, No CVA tenderness, No vertebral tenderness Pelvic Exam: deferred Rectal Exam: deferred OBJECTIVE DATA Vital Signs: Vital Signs - 24 hr Temp Pulse Resp BP Pulse Ox 08/29/22 11:58 88 08/29/22 11:56 98.4 F 84 20 138/66 83 L 08/29/22 07:22 98.2 F 75 20 128/81 91 L 08/29/22 07:21 82 26 H 131/54 94 L 08/29/22 07:03 82 26 H 92 L 08/29/22 06:00 77 24 124/81 08/29/22 05:00 79 27 H 129/64 93 L 08/29/22 04:00 98.4 F 75 27 H 130/65 93 L 08/29/22 03:00 75 26 H 122/56 93 L 08/29/22 02:00 74 22 134/58 92 L 08/29/22 01:00 87 22 124/56 08/29/22 00:00 98.1 F 90 22 124/56 08/28/22 23:00 90 22 111/59 08/28/22 22:00 84 23 138/59 08/28/22 21:00 92 H 22 138/59 08/28/22 20:30 70 30 H 92 L 08/28/22 20:00 86 08/28/22 18:41 97.7 F 89 28 H 137/59 93 L 08/28/22 16:00 98.1 F 88 28 H 142/58 91 L Pain Assessment - Last Documented Pain Intensity 0 Pain Scale Used 0-10 Pain Scale Intake and Output: Intake & Output 08/27/22 08/28/22 08/29/22 08/30/22 11:59 11:59 11:59 11:59 Intake Total 1922 3711 1200 Output Total 1250 3300 1450 Balance 672 411 -250 Weight 57 kg Lab Results: Lab Results-Last 24 Hours 08/28/22 08/28/22 08/29/22 Range/Units 17:01 20:46 07:03 WBC (4.0-10.5) x10^3/uL RBC (4.1-5.4) x10^6/uL Hgb (12.0-16.0) g/dL Hct (35-47) % MCV (78-100) fL MCH (26-32) pg MCHC (32-36) g/dL RDW (11.5-14.0) % Plt Count (150-450) x10^3/uL MPV (7.5-11.0) fL Gran % (36.0-66.0) % Immature Gran % (Auto) (0.00-0.4) % Nucleat RBC Rel Count (0.00-0.1) % Eos # (Auto) (0-0.5) x10^3/uL Immature Gran # (Auto) (0.00-0.03) x10^3u/L Absolute Lymphs (auto) (1.0-4.6) x10^3/uL Absolute Monos (auto) (0.0-1.3) x10^3/uL Absolute Nucleated RBC (0.00-0.01) x10^3u/L Lymphocytes % (24.0-44.0) % Monocytes % (0.0-12.0) % Eosinophils % (0.00-5.0) % Basophils % (0.0-0.4) % Absolute Granulocytes (1.4-6.9) x10^3/uL Segmented Neutrophils (36.0-66.0) % Lymphocytes (Manual) (24-44) % Monocytes (Manual) (0.0-12.0) % Basophils # (0-0.4) x10^3/uL Platelet Estimate (NORMAL) RBC Morphology Sodium (137-145) mmol/L Potassium (3.5-5.1) mmol/L Chloride (98-107) mmol/L Carbon Dioxide (22-30) mmol/L Anion Gap (5-15) MEQ/L BUN (7-17) mg/dL Creatinine (0.52-1.04) mg/dL Estimated GFR ML/MIN Glucose (74-106) mg/dL POC Glucometer 186 H 203 H 194 H (74 to 106) mg/dL Calcium (8.4-10.2) mg/dL Total Bilirubin (0.2-1.3) mg/dL AST (14-36) U/L ALT (0-35) U/L Alkaline Phosphatase (38-126) U/L Serum Total Protein (6.3-8.2) g/dL Albumin (3.5-5.0) g/dL Procalcitonin (0.030-0.080) ng/mL 08/29/22 08/29/22 08/29/22 Range/Units 07:38 07:38 07:45 WBC 30.3 H* (4.0-10.5) x10^3/uL RBC 3.61 L (4.1-5.4) x10^6/uL Hgb 10.7 L (12.0-16.0) g/dL Hct 31.6 L (35-47) % MCV 87.5 (78-100) fL MCH 29.6 (26-32) pg MCHC 33.9 (32-36) g/dL RDW 12.4 (11.5-14.0) % Plt Count 596 H (150-450) x10^3/uL MPV 8.9 (7.5-11.0) fL Gran % 90.8 H (36.0-66.0) % Immature Gran % (Auto) 1.7 H (0.00-0.4) % Nucleat RBC Rel Count 0.0 (0.00-0.1) % Eos # (Auto) 0.12 (0-0.5) x10^3/uL Immature Gran # (Auto) 0.52 H (0.00-0.03) x10^3u/L Absolute Lymphs (auto) 0.91 L (1.0-4.6) x10^3/uL Absolute Monos (auto) 1.16 (0.0-1.3) x10^3/uL Absolute Nucleated RBC 0.00 (0.00-0.01) x10^3u/L Lymphocytes % 3.0 L (24.0-44.0) % Monocytes % 3.8 (0.0-12.0) % Eosinophils % 0.4 (0.00-5.0) % Basophils % 0.3 (0.0-0.4) % Absolute Granulocytes 27.51 H (1.4-6.9) x10^3/uL Segmented Neutrophils 95 H (36.0-66.0) % Lymphocytes (Manual) 1 L (24-44) % Monocytes (Manual) 4 (0.0-12.0) % Basophils # 0.08 (0-0.4) x10^3/uL Platelet Estimate INCREASED (NORMAL) RBC Morphology NORMAL Sodium 133 L (137-145) mmol/L Potassium 4.1 (3.5-5.1) mmol/L Chloride 104 (98-107) mmol/L Carbon Dioxide 21 L (22-30) mmol/L Anion Gap 11.6 (5-15) MEQ/L BUN 23 H (7-17) mg/dL Creatinine 0.58 (0.52-1.04) mg/dL Estimated GFR > 60.0 ML/MIN Glucose 211 H (74-106) mg/dL POC Glucometer (74 to 106) mg/dL Calcium 9.0 (8.4-10.2) mg/dL Total Bilirubin 0.40 (0.2-1.3) mg/dL AST 90 H (14-36) U/L ALT 104 H (0-35) U/L Alkaline Phosphatase 76 (38-126) U/L Serum Total Protein 6.0 L (6.3-8.2) g/dL Albumin 2.8 L (3.5-5.0) g/dL Procalcitonin 0.288 H (0.030-0.080) ng/mL 08/29/22 Range/Units 11:03 WBC (4.0-10.5) x10^3/uL RBC (4.1-5.4) x10^6/uL Hgb (12.0-16.0) g/dL Hct (35-47) % MCV (78-100) fL MCH (26-32) pg MCHC (32-36) g/dL RDW (11.5-14.0) % Plt Count (150-450) x10^3/uL MPV (7.5-11.0) fL Gran % (36.0-66.0) % Immature Gran % (Auto) (0.00-0.4) % Nucleat RBC Rel Count (0.00-0.1) % Eos # (Auto) (0-0.5) x10^3/uL Immature Gran # (Auto) (0.00-0.03) x10^3u/L Absolute Lymphs (auto) (1.0-4.6) x10^3/uL Absolute Monos (auto) (0.0-1.3) x10^3/uL Absolute Nucleated RBC (0.00-0.01) x10^3u/L Lymphocytes % (24.0-44.0) % Monocytes % (0.0-12.0) % Eosinophils % (0.00-5.0) % Basophils % (0.0-0.4) % Absolute Granulocytes (1.4-6.9) x10^3/uL Segmented Neutrophils (36.0-66.0) % Lymphocytes (Manual) (24-44) % Monocytes (Manual) (0.0-12.0) % Basophils # (0-0.4) x10^3/uL Platelet Estimate (NORMAL) RBC Morphology Sodium (137-145) mmol/L Potassium (3.5-5.1) mmol/L Chloride (98-107) mmol/L Carbon Dioxide (22-30) mmol/L Anion Gap (5-15) MEQ/L BUN (7-17) mg/dL Creatinine (0.52-1.04) mg/dL Estimated GFR ML/MIN Glucose (74-106) mg/dL POC Glucometer 211 H (74 to 106) mg/dL Calcium (8.4-10.2) mg/dL Total Bilirubin (0.2-1.3) mg/dL AST (14-36) U/L ALT (0-35) U/L Alkaline Phosphatase (38-126) U/L Serum Total Protein (6.3-8.2) g/dL Albumin (3.5-5.0) g/dL Procalcitonin (0.030-0.080) ng/mL Radiology Exams: Radiology Procedures Category Date Time Status CHEST 1 VIEW (PORTABLE) Routine Exams 08/28/22 08:00 Completed Multi-Disciplinary Progress Notes: Multi-Disciplinary Progress Notes 08/29/22 11:52 Respiratory Note by Delaney Payne Placed on [facility] Addendum entered by Delaney Payne 08/29/22 11:52: Placed on [facility] oxygen 55L with 100% fio2. pt is refusing bipap and sats dropped into the mid 80s. Sats up to 91% Initialized on 08/29/22 11:52 - END OF NOTE 08/29/22 10:42 Case Management Note by Crissy De Guzman NO CHANGE IN DC PLANS AT THIS TIME- STILL TREATING PATIENT WITH OXYGEN AND ANTIBIOTICS Initialized on 08/29/22 10:42 - END OF NOTE Assessment/Plan (1) Sepsis Current Visit: Yes Status: Acute Qualifiers: Sepsis type: Pneumococcus Sepsis acute organ dysfunction status: with acute organ dysfunction Severe sepsis acute organ dysfunction type: acute respiratory failure Acute respiratory failure type: with hypoxia Severe sepsis shock status: with septic shock Qualified Code(s): A40.3 - Sepsis due to Streptococcus pneumoniae; R65.21 - Severe sepsis with septic shock; J96.01 - Acute respiratory failure with hypoxia Assessment & Plan: Chief Complaint Diagnosis A-FIB, PNEUMONIA Admission Date Date 08/25/22 Allergies Allergy/AdvReac Type Severity Reaction Status Date / Time azithromycin Allergy Severe Tightness Verified 08/25/22 16:36 [From Zithromax Z-Ankit] of Throat Penicillins Allergy Severe Tightness Verified 08/25/22 16:36 of Throat xanthan gum Allergy Verified 08/25/22 16:36 xylitol Allergy Verified 08/25/22 16:36 Vital Signs (Last 24 hours) Temp Pulse Resp BP Pulse Ox 08/29/22 11:58 88 08/29/22 11:56 98.4 F 84 20 138/66 83 L 08/29/22 07:22 98.2 F 75 20 128/81 91 L 08/29/22 07:21 82 26 H 131/54 94 L 08/29/22 07:03 82 26 H 92 L 08/29/22 06:00 77 24 124/81 08/29/22 05:00 79 27 H 129/64 93 L 08/29/22 04:00 98.4 F 75 27 H 130/65 93 L 08/29/22 03:00 75 26 H 122/56 93 L 08/29/22 02:00 74 22 134/58 92 L 08/29/22 01:00 87 22 124/56 08/29/22 00:00 98.1 F 90 22 124/56 08/28/22 23:00 90 22 111/59 08/28/22 22:00 84 23 138/59 08/28/22 21:00 92 H 22 138/59 08/28/22 20:30 70 30 H 92 L 08/28/22 20:00 86 08/28/22 18:41 97.7 F 89 28 H 137/59 93 L 08/28/22 16:00 98.1 F 88 28 H 142/58 91 L Current Medications Generic Name Dose Route Start Last Admin Trade Name [place] PRN Reason Stop Dose Admin Acetaminophen 650 mg 08/26/22 20:30 08/29/22 00:47 Acetaminophen 325 Mg Tablet PO 09/25/22 20:29 650 mg Q4H PRN PRN Administration PAIN AND/OR FEVER Benzonatate 100 mg 08/27/22 07:09 08/29/22 09:24 Benzonatate 100 Mg Capsule PO 09/26/22 07:08 100 mg TID PRN PRN Administration COUGH Calcium Carbonate 1 tab 08/26/22 14:00 08/29/22 09:29 Calcium Carbonate 500 Mg/Vitamin D 1 Tab Tablet PO 09/25/22 13:59 Not Given BID LELA Clotrimazole 15 gm 08/26/22 14:00 08/29/22 09:30 Clotrimazole/Betamet Diprop 15 Gm Tube Cream TP 09/25/22 13:59 Not Given DAILY LELA Methylprednisolone Sodium 0 mg 08/27/22 22:00 08/29/22 05:29 Succinate 40 mg/ Sterile Water IV 09/26/22 21:59 40 mg 1 ml Q8HT LELA Administration Cyanocobalamin 1,000 mcg 08/26/22 22:00 08/29/22 09:31 Cyanocobalamin 500 Mcg Tablet PO 09/25/22 21:59 Not Given BID LELA Device 1 08/30/22 08:30 Therapuetic Drug Level Monitor Each IJ 08/30/22 08:31 1XONLY ONE Diltiazem HCl 120 mg 08/28/22 14:00 08/29/22 09:24 Diltiazem Hcl Cd 120 Mg Cap.Sr.24h PO 09/27/22 13:59 120 mg DAILY LELA Administration Diphenhydramine HCl 50 mg 08/26/22 13:21 Diphenhydramine Hcl 25 Mg Capsule PO 09/25/22 13:20 Q4-6HPRN PRN ALLERGIES Docusate Sodium 100 mg 08/26/22 12:29 Docusate Sodium 100 Mg Capsule PO 09/25/22 12:28 BIDPRN PRN CONSTIPATION Enoxaparin Sodium 60 mg 08/26/22 22:00 08/29/22 09:24 Enoxaparin Sodium 60 Mg/0.6 Ml Syringe SQ 09/25/22 21:59 60 mg BID LELA Administration Guaifenesin/Codeine Phosphate 5 ml 08/26/22 12:29 08/29/22 11:57 Guaifenesin/Codeine Phosphate 5 Ml Udcup PO 09/25/22 12:28 5 ml Q4H PRN PRN Administration COUGH Potassium Chloride/Sodium Chloride 1,000 mls @ 50 mls/hr 08/26/22 12:30 08/29/22 08:00 Sodium Chloride 0.9% W/ 20 Meq Kcl/Liter IV 09/25/22 12:29 50 mls/hr .Q20H LELA Administration Cefepime HCl 2 g/ Sodium 100 mls @ 200 mls/hr 08/26/22 13:00 08/29/22 09:40 Chloride IV 09/25/22 12:59 200 mls/hr Q12HT LELA Administration Levofloxacin/Dextrose 750 mg in 150 mls @ 100 mls/hr 08/27/22 14:00 08/27/22 16:15 Levofloxacin 750mg/150ml D5w IV 09/26/22 13:59 100 mls/hr Q48H LELA Administration Diltiazem HCl 100 mls @ 5 mls/hr 08/27/22 18:52 08/27/22 23:59 Cardizem Drip 100 Mg/100 Ml D5w IV 09/26/22 18:51 0 mg/hr .Q20H PRN 0 mls/hr HEART RATE/ A-FIB Titration Protocol 5 MG/HR Vancomycin HCl 1 gm in 200 mls @ 133.333 mls/hr 08/28/22 21:00 08/29/22 08:00 Vancomycin 1 Gram/200 Ml Bag IV 09/27/22 20:59 133.333 mls/hr Q12H LELA Administration Insulin Human Regular 0 unit 08/26/22 12:30 Insulin Regular, Human 1 Unit SQ 09/25/22 12:29 UD PRN HYPERGLYCEMIA Lorazepam 1 mg 08/29/22 09:51 08/29/22 09:57 Lorazepam 2 Mg/1 Ml 2 Mg Vial IV 09/28/22 09:50 1 mg Q6H PRN PRN Administration ANXIETY Metformin HCl 500 mg 08/26/22 16:30 08/29/22 07:21 Metformin Hcl 500 Mg Tablet PO 09/25/22 16:29 Not Given BIDAC LELA Montelukast Sodium 10 mg 08/26/22 14:00 08/29/22 09:30 Montelukast Sodium 10 Mg Tablet PO 09/25/22 13:59 Not Given DAILY LELA Multivitamins/Minerals 1 tab 08/26/22 14:00 08/29/22 09:30 Beta-Carotene(A) W-C And E/Min 1 Tab Tablet PO 09/25/22 13:59 Not Given BID LELA Simvastatin 10 mg 08/26/22 14:00 08/29/22 09:24 Simvastatin 10 Mg Tablet PO 09/25/22 13:59 10 mg DAILY LELA Administration Tetrahydrozoline HCl 0 ml 08/29/22 07:45 Tetrahydrozoline Hcl 15 Ml Bottle Eye Drops OP 09/25/22 13:59 QIDPRN PRN Discontinued Medications Generic Name Dose Route Start Last Admin Trade Name Freq PRN Reason Stop Dose Admin Acetaminophen 650 mg 08/25/22 22:29 Acetaminophen 325 Mg Tablet PO 09/24/22 22:28 Q4H PRN PRN PAIN, FEVER, HEADACHE Acetaminophen 650 mg 08/26/22 00:31 Acetaminophen 325 Mg Tablet PO 09/25/22 00:30 Q4H PRN PRN PAIN, FEVER, HEADACHE Albuterol/Ipratropium 3 ml 08/25/22 16:37 08/25/22 16:52 Ipratropium/Albuterol Sulfate 3 Ml Ampul.Neb 08/25/22 16:38 3 ml STAT ONE Administration Albuterol/Ipratropium Confirm 08/25/22 16:39 Ipratropium/Albuterol Sulfate 3 Ml Ampul.Neb Administered 08/25/22 16:40 Dose 3 ml IH .STK-MED ONE Albuterol/Ipratropium 3 ml 08/25/22 22:29 Ipratropium/Albuterol Sulfate 3 Ml Ampul.[facility] 09/25/22 00:59 Q6HRT PRN SHORTNESS OF BREATH/WHEEZING Albuterol/Ipratropium Confirm 08/26/22 00:25 Ipratropium/Albuterol Sulfate 3 Ml Ampul.Neb Administered 08/26/22 00:26 Dose 3 ml IH .STK-MED ONE Albuterol/Ipratropium 3 ml 08/26/22 00:32 08/26/22 09:37 Ipratropium/Albuterol Sulfate 3 Ml Ampul.[facility] 09/25/22 00:44 3 ml QID PRN PRN Administration SHORTNESS OF BREATH/WHEEZING Benzonatate 100 mg 08/25/22 23:00 Benzonatate 100 Mg Capsule PO 08/30/22 23:01 TID PRN LELA Benzonatate 100 mg 08/26/22 00:33 08/26/22 09:02 Benzonatate 100 Mg Capsule PO 09/25/22 00:32 100 mg TID PRN PRN Administration COUGH Cefepime HCl Confirm 08/26/22 02:36 Cefepime Hcl 2 Gm Vial Administered 08/26/22 02:37 Dose 2 g .ROUTE .STK-MED ONE Device 1 08/27/22 15:45 08/29/22 07:20 Therapuetic Drug Level Monitor Each IJ 08/27/22 15:46 Not Given 1XONLY ONE Digoxin 0.25 mg 08/25/22 20:24 08/25/22 20:31 Digoxin 0.5 Mg/2 Ml Injection IV 08/25/22 20:25 0.25 mg STAT ONE Administration Digoxin Confirm 08/25/22 20:28 Digoxin 0.5 Mg/2 Ml Injection Administered 08/25/22 20:29 Dose 0.5 mg .ROUTE .STK-MED ONE Digoxin 0.25 mg 08/25/22 21:10 08/25/22 23:57 Digoxin 0.5 Mg/2 Ml Injection IV 08/25/22 21:11 Not Given STAT ONE Digoxin 0.25 mg 08/25/22 21:29 08/25/22 22:40 Digoxin 0.5 Mg/2 Ml Injection IV 08/25/22 21:30 Not Given STAT ONE Diltiazem HCl 10 mg 08/25/22 16:51 08/25/22 16:54 Diltiazem Hcl Iv 5 Mg/Ml Vial IV 08/25/22 16:52 10 mg STAT ONE Administration Diltiazem HCl Confirm 08/25/22 16:52 Diltiazem Hcl Iv 5 Mg/Ml Vial Administered 08/25/22 16:53 Dose 50 mg IV .STK-MED ONE Diltiazem HCl 10 mg 08/25/22 17:54 08/25/22 18:03 Diltiazem Hcl Iv 5 Mg/Ml Vial IV 08/25/22 17:55 10 mg STAT ONE Administration Diltiazem HCl 120 mg 08/27/22 15:00 08/27/22 14:56 Diltiazem Hcl Cd 120 Mg Cap.Sr.24h PO 09/26/22 14:59 120 mg DAILY LELA Administration Diltiazem HCl 5 mg 08/27/22 17:40 08/27/22 17:50 Diltiazem Hcl Iv 5 Mg/Ml Vial IV 08/27/22 17:41 5 mg ONCE ONE Administration Diphenhydramine HCl 25 mg 08/25/22 23:47 Diphenhydramine Hcl 25 Mg Capsule PO 09/24/22 23:46 Q6H PRN PRN ITCHING Docusate Sodium 100 mg 08/25/22 22:29 Docusate Sodium 100 Mg Capsule PO 09/24/22 22:28 BIDPRN PRN CONSTIPATION Docusate Sodium 100 mg 08/26/22 00:34 08/26/22 09:02 Docusate Sodium 100 Mg Capsule PO 09/25/22 00:33 100 mg BIDPRN PRN Administration CONSTIPATION Doxycycline Hyclate Confirm 08/25/22 17:54 Doxycycline Hyclate 100 Mg/Vial Injection Administered 08/25/22 17:55 Dose 100 mg IV .STK-MED ONE Doxycycline Hyclate Confirm 08/26/22 02:36 Doxycycline Hyclate 100 Mg/Vial Injection Administered 08/26/22 02:37 Dose 100 mg IV .STK-MED ONE Enoxaparin Sodium 60 mg 08/25/22 22:04 08/25/22 22:56 Enoxaparin Sodium 60 Mg/0.6 Ml Syringe SQ 08/25/22 22:05 60 mg STAT ONE Administration Enoxaparin Sodium 60 mg 08/26/22 10:00 Enoxaparin Sodium 40 Mg/0.4 Ml Syringe SQ 09/25/22 09:59 BID LELA Enoxaparin Sodium 60 mg 08/26/22 10:00 08/26/22 09:02 Enoxaparin Sodium 60 Mg/0.6 Ml Syringe SQ 09/25/22 09:59 60 mg BID LELA Administration Furosemide 20 mg 08/26/22 21:13 08/25/22 21:36 Furosemide 20 Mg/Vial IV 08/26/22 21:14 20 mg ONCE ONE Administration Furosemide Confirm 08/25/22 21:34 Furosemide 20 Mg/Vial Administered 08/25/22 21:35 Dose 20 mg .ROUTE .STK-MED ONE Ceftriaxone Sodium/Dextrose 1 g in 50 mls @ 100 mls/hr 08/25/22 17:02 08/25/22 17:41 Rocephin 1 Gm-D5w 50 Ml Bag IV 08/25/22 17:31 Infused STAT STA Infusion Ceftriaxone Sodium/Dextrose Confirm 08/25/22 17:03 Rocephin 1 Gm-D5w 50 Ml Bag Administered 08/25/22 17:04 Dose 1 g in 50 mls @ ud IV .STK-MED ONE Doxycycline Hyclate 100 mg/ 100 mls @ 100 mls/hr 08/25/22 22:00 Dextrose IV 09/24/22 21:59 Q12HT LELA Doxycycline Hyclate 100 mg/ 100 mls @ 100 mls/hr 08/25/22 17:36 08/25/22 18:04 Dextrose IV 09/24/22 17:35 100 mls/hr Q12HT LELA Administration Dextrose Confirm 08/25/22 17:54 D5w 100ml Mini Bag 100 Ml Administered 08/25/22 17:55 Dose 100 mls @ ud IV .STK-MED ONE Diltiazem HCl 100 mls @ 5 mls/hr 08/25/22 18:37 08/25/22 20:43 Cardizem Drip 100 Mg/100 Ml D5w IV 09/24/22 18:36 10 mg/hr .Q20H PRN 10 mls/hr HEART RATE/ A-FIB Titration Protocol 5 MG/HR Cefepime HCl 2 g/ Dextrose 100 mls @ 200 mls/hr 08/25/22 22:45 08/26/22 07:21 IV 09/01/22 22:44 Not Given Q8H LELA Vancomycin HCl 1 gm/ Sodium 250 mls @ 125 mls/hr 08/25/22 23:00 08/26/22 07:2 2 Chloride IV 09/01/22 22:59 Not Given Q12H LELA Diltiazem HCl Confirm 08/25/22 19:09 Cardizem Drip 100 Mg/100 Ml D5w Administered 08/25/22 19:10 Dose 100 mls @ ud IV .STK-MED ONE Potassium Chloride/Sodium Chloride 1,000 mls @ 50 mls/hr 08/25/22 23:47 08/26/22 09:23 Sodium Chloride 0.9% W/ 20 Meq Kcl/Liter IV 08/26/22 09:46 50 mls/hr .Q20H LELA Infusion Diltiazem HCl 100 mls @ 5 mls/hr 08/26/22 00:34 Cardizem Drip 100 Mg/100 Ml D5w IV 09/25/22 00:33 .Q20H PRN HEART RATE/ A-FIB Protocol 5 MG/HR Cefepime HCl 2 g/ Dextrose 100 mls @ 200 mls/hr 08/26/22 01:15 08/26/22 03:22 IV 09/25/22 01:14 200 mls/hr Q8H LELA Administration Doxycycline Hyclate 100 mg/ 100 mls @ 100 mls/hr 08/26/22 02:00 08/26/22 05:05 Dextrose IV 09/25/22 01:59 100 mls/hr Q12HT LELA Administration Vancomycin HCl 1 gm in 200 mls @ 125 mls/hr 08/26/22 02:00 08/26/22 02:29 Vancomycin 1 Gram/200 Ml Bag IV 09/25/22 01:59 125 mls/hr Q12H LELA Administration Dextrose Confirm 08/26/22 02:37 D5w 100ml Mini Bag 100 Ml Administered 08/26/22 02:38 Dose 200 mls @ ud IV .STK-MED ONE Diltiazem HCl 100 mls @ 5 mls/hr 08/26/22 02:43 Cardizem Drip 100 Mg/100 Ml D5w IV 09/25/22 02:42 .Q20H PRN HEART RATE/ A-FIB Protocol 5 MG/HR Doxycycline Hyclate 100 mg/ 100 mls @ 100 mls/hr 08/26/22 22:00 Dextrose IV 09/25/22 21:59 Q12HT LELA Cefepime HCl 2 g/ Dextrose 100 mls @ 200 mls/hr 08/26/22 14:00 IV 09/25/22 13:59 Q8HT LELA Vancomycin HCl 1 gm in 200 mls @ 125 mls/hr 08/26/22 20:00 Vancomycin 1 Gram/200 Ml Bag IV 09/25/22 19:59 Q18H LELA Vancomycin HCl 1 gm in 200 mls @ 125 mls/hr 08/26/22 20:00 08/28/22 09:12 Vancomycin 1 Gram/200 Ml Bag IV 09/25/22 19:59 125 mls/hr Q18H LELA Administration Cefepime HCl 2 g/ Dextrose 100 mls @ 200 mls/hr 08/26/22 13:00 IV 09/25/22 12:59 Q12HT LELA Sodium Chloride Confirm 08/27/22 21:51 Sodium Chloride 0.9% 1000 Ml Administered 08/27/22 21:52 Dose 1,000 mls @ ud .ROUTE .STK-MED ONE Insulin Human Regular 0 unit 08/25/22 22:29 Insulin Regular, Human 1 Unit SQ 09/24/22 22:28 UD PRN HYPERGLYCEMIA Insulin Human Regular 0 unit 08/26/22 00:39 Insulin Regular, Human 1 Unit SQ 09/25/22 00:38 UD PRN HYPERGLYCEMIA Loratadine 10 mg 08/26/22 10:00 Loratadine 10 Mg Tablet PO 09/25/22 09:59 DAILY LELA Magnesium Hydroxide 30 ml 08/25/22 22:29 Magnesium Hydroxide 30 Ml Udcup PO 09/24/22 22:28 HS PRN PRN CONSTIPATION Magnesium Hydroxide 30 ml 08/26/22 00:40 Magnesium Hydroxide 30 Ml Udcup PO 09/25/22 00:39 HS PRN PRN CONSTIPATION Methylprednisolone Sodium Succinate 40 mg 08/27/22 14:00 08/27/22 13:59 Methylprednisolone Sod Suc 40m 40 Mg/Ml Vial IV 09/26/22 13:59 40 mg Q8HT LELA Administration Methylprednisolone Sodium Succinate Confirm 08/28/22 12:27 Methylprednisolone Sod Suc 40m 40 Mg/Ml Vial Administered 08/28/22 12:28 Dose 40 mg .ROUTE .STK-MED ONE Metoprolol Tartrate 25 mg 08/25/22 22:36 08/26/22 07:21 Metoprolol Tartrate 25 Mg Tab PO 09/24/22 22:35 Not Given BID [facility] Metoprolol Tartrate 25 mg 08/26/22 00:41 08/26/22 09:02 Metoprolol Tartrate 25 Mg Tab PO 09/25/22 00:40 25 mg BID [facility] Administration Montelukast Sodium 10 mg 08/26/22 10:00 08/26/22 09:02 Montelukast Sodium 10 Mg Tablet PO 09/25/22 09:59 10 mg DAILY [facility] Administration Non-Formulary Medication 0.3 ml 08/26/22 13:21 Epinephrine [Epipen 2-Ankit] SQ UD PRN ALLERGIES Non-Formulary Medication 1 each 08/27/22 11:56 08/27/22 15:11 Pharmacy Dosing Request [facility] 08/27/22 11:57 1 each STAT ONE Administration Nystatin 5 ml 08/26/22 15:00 Nystatin 60 Ml Suspension Bottle PO 09/25/22 14:59 5XD [facility] Potassium Chloride 40 meq 08/25/22 21:59 08/25/22 22:19 Potassium Chloride Tab 10 Meq Tab PO 08/25/22 22:00 40 meq STAT ONE Administration Potassium Chloride Confirm 08/25/22 22:18 Potassium Chloride Tab 10 Meq Tab Administered 08/25/22 22:19 Dose 40 meq PO .STK-MED ONE Sterile Water Confirm 08/27/22 13:57 Water For Injection,Sterile 10 Ml Vial Administered 08/27/22 13:58 Dose 10 ml IJ .STK-MED ONE Tetrahydrozoline HCl 15 ml 08/26/22 14:00 08/28/22 09:47 Tetrahydrozoline Hcl 15 Ml Bottle Eye Drops OP 09/25/22 13:59 15 ml DAILY LELA Administration Intake & Output (Last 24 hours) 08/27/22 08/28/22 08/29/22 08/30/22 11:59 11:59 11:59 11:59 Intake Total 1922 3711 1200 Output Total 1250 3300 1450 Balance 672 411 -250 Weight 57 kg Laboratory Results (Last 24 hours) 08/29/22 08/29/22 08/29/22 11:03 07:45 07:38 WBC RBC Hgb Hct MCV MCH MCHC RDW Plt Count MPV Gran % Immature Gran % (Auto) Nucleat RBC Rel Count Eos # (Auto) Immature Gran # (Auto) Absolute Lymphs (auto) Absolute Monos (auto) Absolute Nucleated RBC Lymphocytes % Monocytes % Eosinophils % Basophils % Absolute Granulocytes Segmented Neutrophils Lymphocytes (Manual) Monocytes (Manual) Basophils # Platelet Estimate RBC Morphology Sodium 133 L Potassium 4.1 Chloride 104 Carbon Dioxide 21 L Anion Gap 11.6 BUN 23 H Creatinine 0.58 Estimated GFR > 60.0 Glucose 211 H POC Glucometer 211 H Calcium 9.0 Total Bilirubin 0.40 AST 90 H ALT 104 H Alkaline Phosphatase 76 Serum Total Protein 6.0 L Albumin 2.8 L Procalcitonin 0.288 H 08/29/22 08/29/22 08/28/22 07:38 07:03 20:46 WBC 30.3 H* RBC 3.61 L Hgb 10.7 L Hct 31.6 L MCV 87.5 MCH 29.6 MCHC 33.9 RDW 12.4 Plt Count 596 H MPV 8.9 Gran % 90.8 H Immature Gran % (Auto) 1.7 H Nucleat RBC Rel Count 0.0 Eos # (Auto) 0.12 Immature Gran # (Auto) 0.52 H Absolute Lymphs (auto) 0.91 L Absolute Monos (auto) 1.16 Absolute Nucleated RBC 0.00 Lymphocytes % 3.0 L Monocytes % 3.8 Eosinophils % 0.4 Basophils % 0.3 Absolute Granulocytes 27.51 H Segmented Neutrophils 95 H Lymphocytes (Manual) 1 L Monocytes (Manual) 4 Basophils # 0.08 Platelet Estimate INCREASED RBC Morphology NORMAL Sodium Potassium Chloride Carbon Dioxide Anion Gap BUN Creatinine Estimated GFR Glucose POC Glucometer 194 H 203 H Calcium Total Bilirubin AST ALT Alkaline Phosphatase Serum Total Protein Albumin Procalcitonin 08/28/22 17:01 WBC RBC Hgb Hct MCV MCH MCHC RDW Plt Count MPV Gran % Immature Gran % (Auto) Nucleat RBC Rel Count Eos # (Auto) Immature Gran # (Auto) Absolute Lymphs (auto) Absolute Monos (auto) Absolute Nucleated RBC Lymphocytes % Monocytes % Eosinophils % Basophils % Absolute Granulocytes Segmented Neutrophils Lymphocytes (Manual) Monocytes (Manual) Basophils # Platelet Estimate RBC Morphology Sodium Potassium Chloride Carbon Dioxide Anion Gap BUN Creatinine Estimated GFR Glucose POC Glucometer 186 H Calcium Total Bilirubin AST ALT Alkaline Phosphatase Serum Total Protein Albumin Procalcitonin Orders (Last 24 hours) Category Date Time Status CBC W DIFF AM.LAB Lab 08/30/22 04:00 Ordered CBC W DIFF AM.LAB Lab 08/31/22 04:00 Ordered CBC W DIFF AM.LAB Lab 09/01/22 04:00 Ordered CBC W DIFF Stat Lab 08/29/22 07:38 Completed CMP AM.LAB Lab 08/30/22 04:00 Ordered CMP AM.LAB Lab 08/31/22 04:00 Ordered CMP AM.LAB Lab 09/01/22 04:00 Ordered CMP Stat Lab 08/29/22 07:38 Completed Manual Differential NC Stat Lab 08/29/22 07:38 Completed POCT GLUCOSE Stat Lab 08/28/22 17:01 Completed POCT GLUCOSE Stat Lab 08/28/22 20:46 Completed POCT GLUCOSE Stat Lab 08/29/22 07:03 Completed POCT GLUCOSE Stat Lab 08/29/22 11:03 Completed PROCALCITONIN Urgent Lab 08/29/22 07:45 Completed Vancomycin, Trough Urgent Lab 08/30/22 08:30 Ordered Diltiazem HCl Cd [Cardizem CD ] Med 08/28/22 14:00 Active 120 mg PO DAILY Lorazepam 2 mg/1 ml [Ativan 2 MG/1 ML VIAL] Med 08/29/22 09:51 Active 1 mg IV Q6H PRN PRN Methylprednisolone Sod Suc 40M [solu-MEDROL] Med 08/28/22 12:27 Discontinued 40 mg .ROUTE .STK-MED ONE Tetrahydrozoline HCl Ophth [TETRAHYDRALAZINE 0.05% Med 08/29/22 07:45 Active Drops] See Dose Instructions OP QIDPRN PRN Therapuetic Drug Level Monitor [Trough Drug Levels] Med 08/30/22 08:30 Once 1 IJ 1XONLY ONE Vancomycin/Water For Inj (Peg) [Vancomycin 1 Gram/200 Med 08/28/22 21:00 Active ml Bag] 1 gm in 200 ml IV Q12H Oxygen High Flow per RT 50% RT 08/29/22 11:51 Active Patient Care Notes (Last 24 hours) 08/29/22 11:52 Respiratory Note by Delaney Payne Placed on Hightflow Addendum entered by Delaney Payne 08/29/22 11:52: Placed on highflow oxygen 55L with 100% fio2. pt is refusing bipap and sats dropped into the mid 80s. Sats up to 91% Initialized on 08/29/22 11:52 - END OF NOTE 08/29/22 10:42 Case Management Note by Crissy De Guzman NO CHANGE IN DC PLANS AT THIS TIME- STILL TREATING PATIENT WITH OXYGEN AND AN TIBIOTICS Initialized on 08/29/22 10:42 - END OF NOTE 08/29/22 09:27 Nursing Note by Elizabeth Eckert pt refusing bipap anymore. placed back on oxymizer at 15L. o2 sats 92% Initialized on 08/29/22 09:27 - END OF NOTE (2) Hypokalemia Current Visit: Yes Status: Resolved Code(s): E87.6 - HYPOKALEMIA (3) New onset a-fib Current Visit: Yes Status: Acute Code(s): I48.91 - UNSPECIFIED ATRIAL FIBRILLATION (4) Pneumonia Current Visit: Yes Status: Acute Code(s): J18.9 - PNEUMONIA, UNSPECIFIED ORGANISM
[2022-08-29] MEDS: LEVOFLOXACIN 750MG/150ML D5W 750 MG/150 ML BAG IV SCH (13:07)
[2022-08-30] MEDS: VANCOMYCIN 1 GRAM/200 ML BAG 1 GM/200 ML PIGGYBACK IV SCH ×2 (00:02→09:45)
[2022-08-30] MEDS: Maxipime 2 GM** 2 G in Sodium Chloride 0.9% 100 ML IV SCH ×2 (00:03→11:58)
[2022-08-30] MEDS ORDERED: CARDIZEM DRIP 100 MG/100 ML D5W 100 ML IV ONE (03:02)
[2022-08-30] MEDS: CARDIZEM DRIP 100 MG/100 ML D5W 100 ML IV PRN (03:03)
[2022-08-30] MEDS: Ativan 2 MG/1 ML VIAL IV PRN (03:57)
[2022-08-30] MEDS: solu-MEDROL 40 MG, Sterile H2O 10 ml 1 ML IV SCH ×2 (05:18)
[2022-08-30] MEDS: MORPHINE SULFATE 2 MG INJ IV PRN ×2 (05:59→10:31)
[2022-08-30] MEDS ORDERED: TROUGH DRUG LEVELS IJ ONE (08:30)
[2022-08-30] MEDS: Glucophage 500 MG PO SCH (08:34)
[2022-08-30 08:56] LABS: Hematocrit 31.3 % (35-47); Hemoglobin 10.5 g/dL (12.0-16.0); Mean Cell Volume 88.7 fL (78-100); Mean Corpuscular Hemoglobin 29.7 pg (26-32); Mean Corpuscular Hgb Concent. 33.5 g/dL (32-36); Mean Platelet Volume 8.8 fL (7.5-11.0); Platelet Count 626 x10^3/uL (150-450); Red Blood Count 3.53 x10^6/uL (4.1-5.4); Red Cell Distribution Width 12.8 % (11.5-14.0)
[2022-08-30 09:18] LABS: ALBUMIN 2.6 g/dL (3.5-5.0); ALKALINE PHOSPHATASE 81 U/L (38-126); BLOOD UREA NITROGEN 23 mg/dL (7-17); CHLORIDE 105 mmol/L (98-107); Calcium 9.2 mg/dL (8.4-10.2); Carbon Dioxide 24 mmol/L (22-30); Creatinine 1 0.49 mg/dL (0.52-1.04); EST GLOMERULAR FILTRATION RATE > 60.0 ML/MIN; Glucose 259 mg/dL (74-106); Potassium 4.1 mmol/L (3.5-5.1); SGOT/AST 30 U/L (14-36); SGPT/ALT 68 U/L (0-35); SODIUM 136 mmol/L (137-145); Total Protein 5.8 g/dL (6.3-8.2)
[2022-08-30] MEDS ORDERED: Ativan 2 MG/1 ML VIAL IV PRN ×2 (09:39→12:50)
[2022-08-30] MEDS: ENOXAPARIN SODIUM SQ SCH (09:45)
[2022-08-30] MEDS: Calcium 500MG W/Vit D Tablet PO SCH (09:59)
[2022-08-30] MEDS: Lotrisone Cream TP SCH (09:59)
[2022-08-30] MEDS: Cardizem CD PO SCH (09:59)
[2022-08-30] MEDS: Ocuvite Tablet PO SCH (10:00)
[2022-08-30] MEDS: Zocor 10MG PO SCH (10:00)
[2022-08-30] MEDS: Vitamin B-12 500 MCG PO SCH (10:00)
[2022-08-30] MEDS: Singulair 10 MG PO SCH (10:00)
[2022-08-30 10:30] LABS: Lymphocytes 3 % (24-44); Monocyte 3 % (0.0-12.0); Neutrophils 94 % (36.0-66.0); Platelet Estimate INCREASED (NORMAL); Total Cells Counted 100; Toxic Granulation 2+
[2022-08-30 12:37] VITALS: BP 124/79
[2022-08-30] MEDS ORDERED: MORPHINE SULFATE 2 MG INJ IV PRN (12:50)
[2022-08-30] MEDS: Morphine PCA 1 MG/ML IV PRN ×2 (13:46→21:13)
[2022-08-30] MEDS ORDERED: Ativan 20 MG/10 ML MDV*** 40 MG in D5w 100ML Mini Bag 100 ML 80 ML IV SCH (14:00)
--- NOTE | 2022-08-30 17:14 | PCM.NOTE ---
Date and Time: 08/30/22 171 Subjective Assessment: patient is unresponsive, wants comfort measures only - Review of Systems All Other Systems: Unable due to condition Objective Exam General Appearance: severe distress Respiratory Exam: respiratory distress, diminished breath sounds, accessory muscle use Cardiovascular Exam: capillary refill >3 sec OBJECTIVE DATA Vital Signs: Vital Signs - 24 hr Temp Pulse Resp BP BP Pulse Ox 08/30/22 16:00 85 21 96 08/30/22 13:46 35 H 08/30/22 12:00 98.0 F 151 H 43 H 124/79 94 L 08/30/22 10:12 113 H 43 H 121/66 08/30/22 07:51 115 H 27 H 90 L 08/30/22 07:36 113 H 08/30/22 07:00 97.1 F 117 H 31 H 106/66 91 L 08/30/22 06:00 105 H 29 H 105/66 08/30/22 04:49 110 H 32 H 99/63 08/30/22 03:41 117 H 08/30/22 03:17 133 H 43 H 138/117 08/30/22 03:03 152 H 39 H 143/101 08/30/22 03:00 152 H 39 H 139/59 08/30/22 01:00 97.9 F 68 22 139/59 90 L 08/30/22 00:00 68 08/29/22 23:00 68 22 90 L 08/29/22 22:00 69 22 92 L 08/29/22 21:29 74 22 139/59 08/29/22 20:00 79 08/29/22 19:40 97.9 F 79 26 H 139/59 94 L Pain Assessment - Last Documented Pain Intensity 0 Pain Scale Used Cipriano Faces Intake and Output: Intake & Output 08/28/22 08/29/22 08/30/22 08/31/22 11:59 11:59 11:59 11:59 Intake Total 3711 1200 2235 Output Total 3300 1450 1700 Balance 411 -250 535 Weight 57 kg Lab Results: Lab Results-Last 24 Hours 08/29/22 08/30/22 08/30/22 Range/Units 20:05 08:50 08:54 WBC 35.0 H* (4.0-10.5) x10^3/uL RBC 3.53 L (4.1-5.4) x10^6/uL Hgb 10.5 L (12.0-16.0) g/dL Hct 31.3 L (35-47) % MCV 88.7 (78-100) fL MCH 29.7 (26-32) pg MCHC 33.5 (32-36) g/dL RDW 12.8 (11.5-14.0) % Plt Count 626 H (150-450) x10^3/uL MPV 8.8 (7.5-11.0) fL Segmented Neutrophils 94 H (36.0-66.0) % Lymphocytes (Manual) 3 L (24-44) % Monocytes (Manual) 3 (0.0-12.0) % Toxic Granulation 2+ Platelet Estimate INCREASED (NORMAL) RBC Morphology NORMAL Sodium (137-145) mmol/L Potassium (3.5-5.1) mmol/L Chloride (98-107) mmol/L Carbon Dioxide (22-30) mmol/L Anion Gap (5-15) MEQ/L BUN (7-17) mg/dL Creatinine (0.52-1.04) mg/dL Estimated GFR ML/MIN Glucose (74-106) mg/dL POC Glucometer 185 H 231 H (74 to 106) mg/dL Calcium (8.4-10.2) mg/dL Total Bilirubin (0.2-1.3) mg/dL AST (14-36) U/L ALT (0-35) U/L Alkaline Phosphatase (38-126) U/L Serum Total Protein (6.3-8.2) g/dL Albumin (3.5-5.0) g/dL Vancomycin Trough (10-20) ug/mL 08/30/22 08/30/22 Range/Units 08:54 08:54 WBC (4.0-10.5) x10^3/uL RBC (4.1-5.4) x10^6/uL Hgb (12.0-16.0) g/dL Hct (35-47) % MCV (78-100) fL MCH (26-32) pg MCHC (32-36) g/dL RDW (11.5-14.0) % Plt Count (150-450) x10^3/uL MPV (7.5-11.0) fL Segmented Neutrophils (36.0-66.0) % Lymphocytes (Manual) (24-44) % Monocytes (Manual) (0.0-12.0) % Toxic Granulation Platelet Estimate (NORMAL) RBC Morphology Sodium 136 L (137-145) mmol/L Potassium 4.1 (3.5-5.1) mmol/L Chloride 105 (98-107) mmol/L Carbon Dioxide 24 (22-30) mmol/L Anion Gap 11.0 (5-15) MEQ/L BUN 23 H (7-17) mg/dL Creatinine 0.49 L (0.52-1.04) mg/dL Estimated GFR > 60.0 ML/MIN Glucose 259 H (74-106) mg/dL POC Glucometer (74 to 106) mg/dL Calcium 9.2 (8.4-10.2) mg/dL Total Bilirubin 0.40 (0.2-1.3) mg/dL AST 30 (14-36) U/L ALT 68 H (0-35) U/L Alkaline Phosphatase 81 (38-126) U/L Serum Total Protein 5.8 L (6.3-8.2) g/dL Albumin 2.6 L (3.5-5.0) g/dL Vancomycin Trough 16.83 (10-20) ug/mL Radiology Exams: Radiology Procedures Category Date Time Status CHEST 1 VIEW (PORTABLE) Routine Exams 08/30/22 09:40 Taken Multi-Disciplinary Progress Notes: Multi-Disciplinary Progress Notes 08/30/22 15:15 Respiratory Note by Zina Chen I SPOKE WITH THE AND AT THIS TIME HE PREFERS THAT THE PT STAYS ON THE BIPAP. THEY HAVE A FAMILY MEMBER TRAVELING HERE FROM [place] AND HE DOESN'T WANT HER TAKEN OFF UNTIL AFTER HE ARRIVES. AWARE THAT HE MAY CALL AT ANYTIME IF SHE CHANGES HIS MIND. NURSE ALSO AWARE OF HUSBANDS DECISION. Initialized on 08/30/22 15:15 - END OF NOTE 08/30/22 13:13 Case Management Note by Crissy De Guzman Addendum entered by Crissy De Guzman 08/30/22 13:42: LEONORA RN- PATIENT'S PRIMARY RN PRESENT FOR CONVERSATION WITH Original Note: S/W PATIENT'S ABOUT WISHES REGARDING PATIENT'S CARE. HE VOICED THAT HE DOES NOT WANT ANYTHING DONE TO PROLONG HER LIFE. WE DISCUSSED THAT PATIENT IS ON ANTIBIOTICS AND HEART MEDICATIONS TO TRY TO TREAT HER. HE VOICED THAT HE IS READY TO STOP THOSE TREATMENTS AND LET HER PASS NATURALLY. HE WAS NOTIFIED THAT BIPAP IS ALSO PROLONGING LIFE AT THIS TIME. WE DISCUSSED REMOVING THIS IF PATIENT REMAINS COMFORTABLE ON LOWER MEANS OF OXYGENATION. IN AGREEMENT AT THIS TIME. HE VOICED THAT HE CURRENTLY WOULD BE UNABLE TO PROVIDE HER WITH 24 HR CARE AT HOME. WILL CONTINUE TO PROVIDE SUPPORT FOR PATIENT AND FAMILY. GRANDDAUGHTER ALSO PRESENT FOR CONVERSATION BUT NOT INVOLVED. I OFFERED TO S/W ANY FAMILY MEMBERS FOR SPOUSE- HE DECLINED AND STATED HE WOULD TALK WITH HIS FAMILY. PRIMARY RN NOTIFIED PHYSICIAN Initialized on 08/30/22 13:13 - END OF NOTE 08/30/22 10:38 Case Management Note by Crissy De Guzman PATIENT STILL ON BIPAP, CARDIAZEM DRIP AND ANTIBIOTICS AT THIS TIME. NO FAMILY AT BEDSIDE AT THIS TIME. WILL CONTINUE TO FOLLOW AND PROVIDE SUPPORT AND ASSIST IN ANY PLANNING FAMILY DESIRES Initialized on 08/30/22 10:38 - END OF NOTE Assessment/Plan (1) Acute respiratory failure with hypoxia and hypercapnia Current Visit: Yes Status: Acute Assessment & Plan: Chief Complaint Diagnosis A-FIB, PNEUMONIA Admission Date Date 08/25/22 Allergies Allergy/AdvReac Type Severity Reaction Status Date / Time azithromycin Allergy Severe Tightness Verified 08/25/22 16:36 [From Zithromax Z-Ankit] of Throat Penicillins Allergy Severe Tightness Verified 08/25/22 16:36 of Throat xanthan gum Allergy Verified 08/25/22 16:36 xylitol Allergy Verified 08/25/22 16:36 Vital Signs (Last 24 hours) Temp Pulse Resp BP BP Pulse Ox 08/30/22 16:00 85 21 96 08/30/22 13:46 35 H 08/30/22 12:00 98.0 F 151 H 43 H 124/79 94 L 08/30/22 10:12 113 H 43 H 121/66 08/30/22 07:51 115 H 27 H 90 L 08/30/22 07:36 113 H 08/30/22 07:00 97.1 F 117 H 31 H 106/66 91 L 08/30/22 06:00 105 H 29 H 105/66 08/30/22 04:49 110 H 32 H 99/63 08/30/22 03:41 117 H 03/08/23 03:17 133 H 43 H 138/117 08/30/22 03:03 152 H 39 H 143/101 08/30/22 03:00 152 H 39 H 139/59 08/30/22 01:00 97.9 F 68 22 139/59 90 L 08/30/22 00:00 68 08/29/22 23:00 68 22 90 L 08/29/22 22:00 69 22 92 L 08/29/22 21:29 74 22 139/59 08/29/22 20:00 79 08/29/22 19:40 97.9 F 79 26 H 139/59 94 L Current Medications Generic Name Dose Route Start Last Admin Trade Name Freq PRN Reason Stop Dose Admin Potassium Chloride/Sodium Chloride 1,000 mls @ 20 mls/hr 08/26/22 12:30 08/30/22 14:00 Sodium Chloride 0.9% W/ 20 Meq Kcl/Liter IV 09/25/22 12:29 Infused .Q24H LELA Infusion Lorazepam 40 mg/ Dextrose 100 mls @ 2.5 mls/hr 08/30/22 14:00 08/30/22 13:45 IV 09/29/22 13:59 2.5 mls/hr .Q24H LELA 2.5 mls/hr Administration Protocol Morphine Sulfate 30 mg 08/30/22 13:13 08/30/22 13:46 Morphine Sulfate * 1 Mg/Ml Syr IV 09/04/22 13:12 30 mg PRN PRN Administration PAIN Discontinued Medications Generic Name Dose Route Start Last Admin Trade Name Freq PRN Reason Stop Dose Admin Acetaminophen 650 mg 08/25/22 22:29 Acetaminophen 325 Mg Tablet PO 09/24/22 22:28 Q4H PRN PRN PAIN, FEVER, HEADACHE Acetaminophen 650 mg 08/26/22 00:31 Acetaminophen 325 Mg Tablet PO 09/25/22 00:30 Q4H PRN PRN PAIN, FEVER, HEADACHE Acetaminophen 650 mg 08/26/22 20:30 08/29/22 00:47 Acetaminophen 325 Mg Tablet PO 09/25/22 20:29 650 mg Q4H PRN PRN Administration PAIN AND/OR FEVER Albuterol/Ipratropium 3 ml 08/25/22 16:37 08/25/22 16:52 Ipratropium/Albuterol Sulfate 3 Ml Ampul.Neb IH 08/25/22 16:38 3 ml STAT ONE Administration Albuterol/Ipratropium Confirm 08/25/22 16:39 Ipratropium/Albuterol Sulfate 3 Ml Ampul.Neb Administered 08/25/22 16:40 Dose 3 ml IH .STK-MED ONE Albuterol/Ipratropium 3 ml 08/25/22 22:29 Ipratropium/Albuterol Sulfate 3 Ml Ampul.Neb 09/25/22 00:59 Q6HRT PRN SHORTNESS OF BREATH/WHEEZING Albuterol/Ipratropium Confirm 08/26/22 00:25 Ipratropium/Albuterol Sulfate 3 Ml Ampul.Neb Administered 08/26/22 00:26 Dose 3 ml IH .STK-MED ONE Albuterol/Ipratropium 3 ml 08/26/22 00:32 08/26/22 09:37 Ipratropium/Albuterol Sulfate 3 Ml Ampul.[facility] 09/25/22 00:44 3 ml QID PRN PRN Administration SHORTNESS OF BREATH/WHEEZING Benzonatate 100 mg 08/25/22 23:00 Benzonatate 100 Mg Capsule PO 08/30/22 23:01 TID PRN LELA Benzonatate 100 mg 08/26/22 00:33 08/26/22 09:02 Benzonatate 100 Mg Capsule PO 09/25/22 00:32 100 mg TID PRN PRN Administration COUGH Benzonatate 100 mg 08/27/22 07:09 08/29/22 09:24 Benzonatate 100 Mg Capsule PO 09/26/22 07:08 100 mg TID PRN PRN Administration COUGH Calcium Carbonate 1 tab 08/26/22 14:00 08/30/22 09:59 Calcium Carbonate 500 Mg/Vitamin D 1 Tab Tablet PO 09/25/22 13:59 Not Given BID [facility] Cefepime HCl Confirm 08/26/22 02:36 Cefepime Hcl 2 Gm Vial Administered 08/26/22 02:37 Dose 2 g .ROUTE .STK-MED ONE Clotrimazole 15 gm 08/26/22 14:00 08/30/22 09:59 Clotrimazole/Betamet Diprop 15 Gm Tube Cream TP 09/25/22 13:59 Not Given DAILY LELA Methylprednisolone Sodium 0 mg 08/27/22 22:00 08/30/22 05:18 Succinate 40 mg/ Sterile Water IV 09/26/22 21:59 40 mg 1 ml Q8HT LELA Administration Methylprednisolone Sodium 0 mg 08/30/22 18:00 Succinate 40 mg/ Sterile Water IV 09/29/22 17:59 1 ml Q12H [facility] Cyanocobalamin 1,000 mcg 08/26/22 22:00 08/30/22 10:00 Cyanocobalamin 500 Mcg Tablet PO 09/25/22 21:59 Not Given BID LELA Device 1 08/27/22 15:45 08/29/22 07:20 Therapuetic Drug Level Monitor Each IJ 08/27/22 15:46 Not Given 1XONLY ONE Device 1 08/30/22 08:30 08/30/22 09:45 Therapuetic Drug Level Monitor Each IJ 08/30/22 08:31 1 1XONLY ONE Administration Digoxin 0.25 mg 08/25/22 20:24 08/25/22 20:31 Digoxin 0.5 Mg/2 Ml Injection IV 08/25/22 20:25 0.25 mg STAT ONE Administration Digoxin Confirm 08/25/22 20:28 Digoxin 0.5 Mg/2 Ml Injection Administered 08/25/22 20:29 Dose 0.5 mg .ROUTE .STK-MED ONE Digoxin 0.25 mg 08/25/22 21:10 08/25/22 23:57 Digoxin 0.5 Mg/2 Ml Injection IV 08/25/22 21:11 Not Given STAT ONE Digoxin 0.25 mg 08/25/22 21:29 08/25/22 22:40 Digoxin 0.5 Mg/2 Ml Injection IV 08/25/22 21:30 Not Given STAT ONE Diltiazem HCl 10 mg 08/25/22 16:51 08/25/22 16:54 Diltiazem Hcl Iv 5 Mg/Ml Vial IV 08/25/22 16:52 10 mg STAT ONE Administration Diltiazem HCl Confirm 08/25/22 16:52 Diltiazem Hcl Iv 5 Mg/Ml Vial Administered 08/25/22 16:53 Dose 50 mg IV .STK-MED ONE Diltiazem HCl 10 mg 08/25/22 17:54 08/25/22 18:03 Diltiazem Hcl Iv 5 Mg/Ml Vial IV 08/25/22 17:55 10 mg STAT ONE Administration Diltiazem HCl 120 mg 08/27/22 15:00 08/27/22 14:56 Diltiazem Hcl Cd 120 Mg Cap.Sr.24h PO 09/26/22 14:59 120 mg DAILY LELA Administration Diltiazem HCl 5 mg 08/27/22 17:40 08/27/22 17:50 Diltiazem Hcl Iv 5 Mg/Ml Vial IV 08/27/22 17:41 5 mg ONCE ONE Administration Diltiazem HCl 120 mg 08/28/22 14:00 08/30/22 09:59 Diltiazem Hcl Cd 120 Mg Cap.Sr.24h PO 09/27/22 13:59 Not Given DAILY LELA Diphenhydramine HCl 25 mg 08/25/22 23:47 Diphenhydramine Hcl 25 Mg Capsule PO 09/24/22 23:46 Q6H PRN PRN ITCHING Diphenhydramine HCl 50 mg 08/26/22 13:21 Diphenhydramine Hcl 25 Mg Capsule PO 09/25/22 13:20 Q4-6HPRN PRN ALLERGIES Docusate Sodium 100 mg 08/25/22 22:29 Docusate Sodium 100 Mg Capsule PO 09/24/22 22:28 BIDPRN PRN CONSTIPATION Docusate Sodium 100 mg 08/26/22 00:34 08/26/22 09:02 Docusate Sodium 100 Mg Capsule PO 09/25/22 00:33 100 mg BIDPRN PRN Administration CONSTIPATION Docusate Sodium 100 mg 08/26/22 12:29 Docusate Sodium 100 Mg Capsule PO 09/25/22 12:28 BIDPRN PRN CONSTIPATION Doxycycline Hyclate Confirm 08/25/22 17:54 Doxycycline Hyclate 100 Mg/Vial Injection Administered 08/25/22 17:55 Dose 100 mg IV .STK-MED ONE Doxycycline Hyclate Confirm 08/26/22 02:36 Doxycycline Hyclate 100 Mg/Vial Injection Administered 08/26/22 02:37 Dose 100 mg IV .STK-MED ONE Enoxaparin Sodium 60 mg 08/25/22 22:04 08/25/22 22:56 Enoxaparin Sodium 60 Mg/0.6 Ml Syringe SQ 08/25/22 22:05 60 mg STAT ONE Administration Enoxaparin Sodium 60 mg 08/26/22 10:00 Enoxaparin Sodium 40 Mg/0.4 Ml Syringe SQ 09/25/22 09:59 BID LELA Enoxaparin Sodium 60 mg 08/26/22 10:00 08/26/22 09:02 Enoxaparin Sodium 60 Mg/0.6 Ml Syringe SQ 09/25/22 09:59 60 mg BID LELA Administration Enoxaparin Sodium 60 mg 08/26/22 22:00 08/30/22 09:45 Enoxaparin Sodium 60 Mg/0.6 Ml Syringe SQ 09/25/22 21:59 60 mg BID LELA Administration Furosemide 20 mg 08/26/22 21:13 08/25/22 21:36 Furosemide 20 Mg/Vial IV 08/26/22 21:14 20 mg ONCE ONE Administration Furosemide Confirm 08/25/22 21:34 Furosemide 20 Mg/Vial Administered 08/25/22 21:35 Dose 20 mg .ROUTE .STK-MED ONE Guaifenesin/Codeine Phosphate 5 ml 08/26/22 12:29 08/29/22 15:53 Guaifenesin/Codeine Phosphate 5 Ml Udcup PO 09/25/22 12:28 5 ml Q4H PRN PRN Administration COUGH Ceftriaxone Sodium/Dextrose 1 g in 50 mls @ 100 mls/hr 08/25/22 17:02 08/25/22 17:41 Rocephin 1 Gm-D5w 50 Ml Bag IV 08/25/22 17:31 Infused STAT STA Infusion Ceftriaxone Sodium/Dextrose Confirm 08/25/22 17:03 Rocephin 1 Gm-D5w 50 Ml Bag Administered 08/25/22 17:04 Dose 1 g in 50 mls @ ud IV .STK-MED ONE Doxycycline Hyclate 100 mg/ 100 mls @ 100 mls/hr 08/25/22 22:00 Dextrose IV 09/24/22 21:59 Q12HT LELA Doxycycline Hyclate 100 mg/ 100 mls @ 100 mls/hr 08/25/22 17:36 08/25/22 18:04 Dextrose IV 09/24/22 17:35 100 mls/hr Q12HT LELA Administration Dextrose Confirm 08/25/22 17:54 D5w 100ml Mini Bag 100 Ml Administered 08/25/22 17:55 Dose 100 mls @ ud IV .STK-MED ONE Diltiazem HCl 100 mls @ 5 mls/hr 08/25/22 18:37 08/25/22 20:43 Cardizem Drip 100 Mg/100 Ml D5w IV 09/24/22 18:36 10 mg/hr .Q20H PRN 10 mls/hr HEART RATE/ A-FIB Titration Protocol 5 MG/HR Cefepime HCl 2 g/ Dextrose 100 mls @ 200 mls/hr 08/25/22 22:45 08/26/22 07:21 IV 09/01/22 22:44 Not Given Q8H LELA Vancomycin HCl 1 gm/ Sodium 250 mls @ 125 mls/hr 08/25/22 23:00 08/26/22 07:22 Chloride IV 09/01/22 22:59 Not Given Q12H LELA Diltiazem HCl Confirm 08/25/22 19:09 Cardizem Drip 100 Mg/100 Ml D5w Administered 08/25/22 19:10 Dose 100 mls @ ud IV .STK-MED ONE Potassium Chloride/Sodium Chloride 1,000 mls @ 50 mls/hr 08/25/22 23:47 08/26/22 09:23 Sodium Chloride 0.9% W/ 20 Meq Kcl/Liter IV 08/26/22 09:46 50 mls/hr .Q20H LELA Infusion Diltiazem HCl 100 mls @ 5 mls/hr 08/26/22 00:34 Cardizem Drip 100 Mg/100 Ml D5w IV 09/25/22 00:33 .Q20H PRN HEART RATE/ A-FIB Protocol 5 MG/HR Cefepime HCl 2 g/ Dextrose 100 mls @ 200 mls/hr 08/26/22 01:15 08/26/22 03:22 IV 09/25/22 01:14 200 mls/hr Q8H LELA Administration Doxycycline Hyclate 100 mg/ 100 mls @ 100 mls/hr 08/26/22 02:00 08/26/22 05:05 Dextrose IV 09/25/22 01:59 100 mls/hr Q12HT LELA Administration Vancomycin HCl 1 gm in 200 mls @ 125 mls/hr 08/26/22 02:00 08/26/22 02:29 Vancomycin 1 Gram/200 Ml Bag IV 09/25/22 01:59 125 mls/hr Q12H LELA Administration Dextrose Confirm 08/26/22 02:37 D5w 100ml Mini Bag 100 Ml Administered 08/26/22 02:38 Dose 200 mls @ ud IV .STK-MED ONE Diltiazem HCl 100 mls @ 5 mls/hr 08/26/22 02:43 Cardizem Drip 100 Mg/100 Ml D5w IV 09/25/22 02:42 .Q20H PRN HEART RATE/ A-FIB Protocol 5 MG/HR Doxycycline Hyclate 100 mg/ 100 mls @ 100 mls/hr 08/26/22 22:00 Dextrose IV 09/25/22 21:59 Q12HT LELA Cefepime HCl 2 g/ Dextrose 100 mls @ 200 mls/hr 08/26/22 14:00 IV 09/25/22 13:59 Q8HT LELA Vancomycin HCl 1 gm in 200 mls @ 125 mls/hr 08/26/22 20:00 Vancomycin 1 Gram/200 Ml Bag IV 09/25/22 19:59 Q18H LELA Vancomycin HCl 1 gm in 200 mls @ 125 mls/hr 08/26/22 20:00 08/28/22 09:12 Vancomycin 1 Gram/200 Ml Bag IV 09/25/22 19:59 125 mls/hr Q18H LELA Administration Cefepime HCl 2 g/ Dextrose 100 mls @ 200 mls/hr 08/26/22 13:00 IV 09/25/22 12:59 Q12HT LELA Cefepime HCl 2 g/ Sodium 100 mls @ 200 mls/hr 08/26/22 13:00 08/30/22 11:58 Chloride IV 09/25/22 12:59 200 mls/hr Q12HT LELA Administration Levofloxacin/Dextrose 750 mg in 150 mls @ 100 mls/hr 08/27/22 14:00 08/29/22 13:07 Levofloxacin 750mg/150ml D5w IV 09/26/22 13:59 100 mls/hr Q48H LELA Administration Diltiazem HCl 100 mls @ 5 mls/hr 08/27/22 18:52 08/30/22 06:00 Cardizem Drip 100 Mg/100 Ml D5w IV 09/26/22 18:51 0 mg/hr .Q20H PRN 0 mls/hr HEART RATE/ A-FIB Titration Protocol 5 MG/HR Sodium Chloride Confirm 08/27/22 21:51 Sodium Chloride 0.9% 1000 Ml Administered 08/27/22 21:52 Dose 1,000 mls @ ud .ROUTE .STK-MED ONE Vancomycin HCl 1 gm in 200 mls @ 133.333 mls/hr 08/28/22 21:00 08/30/22 09:45 Vancomycin 1 Gram/200 Ml Bag IV 09/27/22 20:59 133.333 mls/hr Q12H LELA Administration Diltiazem HCl Confirm 08/30/22 03:02 Cardizem Drip 100 Mg/100 Ml D5w Administered 08/30/22 03:03 Dose 100 mls @ ud IV .STK-MED ONE Cefepime HCl 2 g/ Sodium 100 mls @ 200 mls/hr 08/30/22 22:00 Chloride IV 09/29/22 21:59 Q12HT LELA Insulin Human Regular 0 unit 08/25/22 22:29 Insulin Regular, Human 1 Unit SQ 09/24/22 22:28 UD PRN HYPERGLYCEMIA Insulin Human Regular 0 unit 08/26/22 00:39 Insulin Regular, Human 1 Unit SQ 09/25/22 00:38 UD PRN HYPERGLYCEMIA Insulin Human Regular 0 unit 08/26/22 12:30 Insulin Regular, Human 1 Unit SQ 09/25/22 12:29 UD PRN HYPERGLYCEMIA Loratadine 10 mg 08/26/22 10:00 Loratadine 10 Mg Tablet PO 09/25/22 09:59 DAILY LELA Lorazepam 1 mg 08/29/22 09:51 08/30/22 03:57 Lorazepam 2 Mg/1 Ml 2 Mg Vial IV 09/28/22 09:50 1 mg Q6H PRN PRN Administration ANXIETY Lorazepam 1 mg 08/30/22 09:39 08/30/22 10:12 Lorazepam 2 Mg/1 Ml 2 Mg Vial IV 09/29/22 09:37 1 mg Q4H PRN PRN Administration ANXIETY Lorazepam 1 mg 08/30/22 12:50 Lorazepam 2 Mg/1 Ml 2 Mg Vial IV 09/29/22 12:48 Q2H PRN PRN ANXIETY Magnesium Hydroxide 30 ml 08/25/22 22:29 Magnesium Hydroxide 30 Ml Udcup PO 09/24/22 22:28 HS PRN PRN CONSTIPATION Magnesium Hydroxide 30 ml 08/26/22 00:40 Magnesium Hydroxide 30 Ml Udcup PO 09/25/22 00:39 HS PRN PRN CONSTIPATION Metformin HCl 500 mg 08/26/22 16:30 08/30/22 08:34 Metformin Hcl 500 Mg Tablet PO 09/25/22 16:29 Not Given BIDAC LELA Methylprednisolone Sodium Succinate 40 mg 08/27/22 14:00 08/27/22 13:59 Methylprednisolone Sod Suc 40m 40 Mg/Ml Vial IV 09/26/22 13:59 40 mg Q8HT LELA Administration Methylprednisolone Sodium Succinate Confirm 08/28/22 12:27 Methylprednisolone Sod Suc 40m 40 Mg/Ml Vial Administered 08/28/22 12:28 Dose 40 mg .ROUTE .STK-MED ONE Metoprolol Tartrate 25 mg 08/25/22 22:36 08/26/22 07:21 Metoprolol Tartrate 25 Mg Tab PO 09/24/22 22:35 Not Given BID LELA Metoprolol Tartrate 25 mg 08/26/22 00:41 08/26/22 09:02 Metoprolol Tartrate 25 Mg Tab PO 09/25/22 00:40 25 mg BID LELA Administration Montelukast Sodium 10 mg 08/26/22 10:00 08/26/22 09:02 Montelukast Sodium 10 Mg Tablet PO 09/25/22 09:59 10 mg DAILY LELA Administration Montelukast Sodium 10 mg 08/26/22 14:00 08/30/22 10:00 Montelukast Sodium 10 Mg Tablet PO 09/25/22 13:59 Not Given DAILY LELA Morphine Sulfate 2 mg 08/30/22 05:56 08/30/22 10:31 Morphine Sulfate 2 Mg/Ml Inj IV 09/04/22 05:55 2 mg Q4H PRN PRN Administration PAIN Morphine Sulfate 2 mg 08/30/22 12:50 Morphine Sulfate 2 Mg/Ml Inj IV 09/04/22 12:49 Q2H PRN PRN PAIN Multivitamins/Minerals 1 tab 08/26/22 14:00 08/30/22 10:00 Beta-Carotene(A) W-C And E/Min 1 Tab Tablet PO 09/25/22 13:59 Not Given BID LELA Non-Formulary Medication 0.3 ml 08/26/22 13:21 Epinephrine [Epipen 2-Ankit] SQ UD PRN ALLERGIES Non-Formulary Medication 1 each 08/27/22 11:56 08/27/22 15:11 Pharmacy Dosing Request MC 08/27/22 11:57 1 each STAT ONE Administration Nystatin 5 ml 08/26/22 15:00 Nystatin 60 Ml Suspension Bottle PO 09/25/22 14:59 5XD LELA Potassium Chloride 40 meq 08/25/22 21:59 08/25/22 22:19 Potassium Chloride Tab 10 Meq Tab PO 08/25/22 22:00 40 meq STAT ONE Administration Potassium Chloride Confirm 08/25/22 22:18 Potassium Chloride Tab 10 Meq Tab Administered 08/25/22 22:19 Dose 40 meq PO .STK-MED ONE Simvastatin 10 mg 08/26/22 14:00 08/30/22 10:00 Simvastatin 10 Mg Tablet PO 09/25/22 13:59 Not Given DAILY LELA Sterile Water Confirm 08/27/22 13:57 Water For Injection,Sterile 10 Ml Vial Administered 08/27/22 13:58 Dose 10 ml IJ .STK-MED ONE Tetrahydrozoline HCl 15 ml 08/26/22 14:00 08/28/22 09:47 Tetrahydrozoline Hcl 15 Ml Bottle Eye Drops OP 09/25/22 13:59 15 ml DAILY LELA Administration Tetrahydrozoline HCl 0 ml 08/29/22 07:45 Tetrahydrozoline Hcl 15 Ml Bottle Eye Drops OP 09/25/22 13:59 QIDPRN PRN Intake & Output (Last 24 hours) 08/28/22 08/29/22 08/30/22 08/31/22 11:59 11:59 11:59 11:59 Intake Total 3711 1200 2235 Output Total 3300 1450 1700 Balance 411 -250 535 Weight 57 kg Microbiology Results (Last 24 hours) 08/25/22 16:46 Blood Blood Culture Gram Stain - Final Not Reportable 08/25/22 16:46 Blood Blood Culture - Final NO GROWTH 08/25/22 17:50 Blood Blood Culture Gram Stain - Final Not Reportable 08/25/22 17:50 Blood Blood Culture - Final NO GROWTH Laboratory Results (Last 24 hours) 08/30/22 08/30/22 08/30/22 08:54 08:54 08:54 WBC 35.0 H* RBC 3.53 L Hgb 10.5 L Hct 31.3 L MCV 88.7 MCH 29.7 MCHC 33.5 RDW 12.8 Plt Count 626 H MPV 8.8 Segmented Neutrophils 94 H Lymphocytes (Manual) 3 L Monocytes (Manual) 3 Toxic Granulation 2+ Platelet Estimate INCREASED RBC Morphology NORMAL Sodium 136 L Potassium 4.1 Chloride 105 Carbon Dioxide 24 Anion Gap 11.0 BUN 23 H Creatinine 0.49 L Estimated GFR > 60.0 Glucose 259 H POC Glucometer Calcium 9.2 Total Bilirubin 0.40 AST 30 ALT 68 H Alkaline Phosphatase 81 Serum Total Protein 5.8 L Albumin 2.6 L Vancomycin Trough 16.83 08/30/22 08/29/22 08:50 20:05 WBC RBC Hgb Hct MCV MCH MCHC RDW Plt Count MPV Segmented Neutrophils Lymphocytes (Manual) Monocytes (Manual) Toxic Granulation Platelet Estimate RBC Morphology Sodium Potassium Chloride Carbon Dioxide Anion Gap BUN Creatinine Estimated GFR Glucose POC Glucometer 231 H 185 H Calcium Total Bilirubin AST ALT Alkaline Phosphatase Serum Total Protein Albumin Vancomycin Trough Orders (Last 24 hours) Category Date Time Status Recertification ROUTINE Admission 08/30/22 12:56 Active POCT Glucose Check Q6H Care 08/30/22 15:00 Completed Supervisor [place]/Discharge Plan ROUTINE Cons 08/30/22 12:21 Active NPO Diet 08/30/22 07:45 Active CHEST 1 VIEW (PORTABLE) Routine Exams 08/30/22 09:40 Taken CBC W DIFF AM.LAB Lab 08/30/22 08:54 Completed CBC W DIFF AM.LAB Lab 08/31/22 04:00 Ordered CBC W DIFF AM.LAB Lab 09/01/22 04:00 Ordered CMP AM.LAB Lab 08/30/22 08:54 Completed CMP AM.LAB Lab 08/31/22 04:00 Ordered CMP AM.LAB Lab 09/01/22 04:00 Ordered Manual Differential NC Routine Lab 08/30/22 08:54 Completed POCT GLUCOSE Stat Lab 08/29/22 16:41 Completed POCT GLUCOSE Stat Lab 08/29/22 20:05 Completed POCT GLUCOSE Stat Lab 08/30/22 08:50 Completed Vancomycin, Trough Urgent Lab 08/30/22 08:54 Completed Cefepime HCl 2 gm [Maxipime 2 GM] 2 g Med 08/30/22 22:00 Discontinued NaCl 0.9% 100 ml Mini-Bag Plus [Sodium Chloride 100ML MINI-BAG PLUS] 100 ml IV Q12HT D5w 100 ml [D5w 100ML Mini Bag 100 ML] 80 ml Med 08/30/22 14:00 Active Lorazepam 20 mg/10 ml Mdv [Ativan 20 MG/10 ML MDV ] 40 mg IV 2.5 mls/hr Diltiazem HCl 100 mg/100 ml [Cardizem Drip 100 mg/100 Med 08/30/22 03:02 Discontinued ml D5w] 100 ml IV UD Lorazepam 2 mg/1 ml [Ativan 2 MG/1 ML VIAL] Med 08/30/22 12:50 D iscontinued 1 mg IV Q2H PRN PRN Lorazepam 2 mg/1 ml [Ativan 2 MG/1 ML VIAL] Med 08/30/22 09:39 Discontinued 1 mg IV Q4H PRN PRN Methylprednisolone Sod Suc 40M [solu-MEDROL] 40 mg Med 08/30/22 18:00 Discontinued Water For Injection,Sterile [Sterile H2O 10 ml] 1 ml IV Q12H Morphine Sulfate * [Morphine PERSONALIZED LIVING MANAGER 1 MG/ML] Med 08/30/22 13:13 Active 30 mg IV PRN PRN Morphine Sulfate 2 mg Inj Med 08/30/22 12:50 Discontinued 2 mg IV Q2H PRN PRN Morphine Sulfate 2 mg Inj Med 08/30/22 05:56 Discontinued 2 mg IV Q4H PRN PRN Therapuetic Drug Level Monitor [Trough Drug Levels] Med 08/30/22 08:30 Discontinued 1 IJ 1XONLY ONE Patient Care Notes (Last 24 hours) 08/30/22 15:15 Respiratory Note by Zina Chen I SPOKE WITH THE AND AT THIS TIME HE PREFERS THAT THE PT STAYS ON THE BIPAP. THEY HAVE A FAMILY MEMBER TRAVELING HERE FROM [place] AND HE DOESN'T WANT HER TAKEN OFF UNTIL AFTER HE ARRIVES. AWARE THAT HE MAY CALL AT ANYTIME IF SHE CHANGES HIS MIND. NURSE ALSO AWARE OF HUSBANDS DECISION. Initialized on 08/30/22 15:15 - END OF NOTE 08/30/22 13:13 Case Management Note by Crissy De Guzman Addendum entered by Crissy De Guzman 08/30/22 13:42: LEONORA RN- PATIENT'S PRIMARY RN PRESENT FOR CONVERSATION WITH Original Note: S/W PATIENT'S ABOUT WISHES REGARDING PATIENT'S CARE. HE VOICED THAT HE DOES NOT WANT ANYTHING DONE TO PROLONG HER LIFE. WE DISCUSSED THAT PATIENT IS ON ANTIBIOTICS AND HEART MEDICATIONS TO TRY TO TREAT HER. HE VOICED THAT HE IS READY TO STOP THOSE TREATMENTS AND LET HER PASS NATURALLY. HE WAS NOTIFIED THAT BIPAP IS ALSO PROLONGING LIFE AT THIS TIME. WE DISCUSSED REMOVING THIS IF PATIENT REMAINS COMFORTABLE ON LOWER MEANS OF OXYGENATION. IN AGREEMENT AT THIS TIME. HE VOICED THAT HE CURRENTLY WOULD BE UNABLE TO PROVIDE HER WITH 24 HR CARE AT HOME. WILL CONTINUE TO PROVIDE SUPPORT FOR PATIENT AND FAMILY. GRANDDAUGHTER ALSO PRESENT FOR CONVERSATION BUT NOT INVOLVED. I OFFERED TO S/W ANY FAMILY MEMBERS FOR SPOUSE- HE DECLINED AND STATED HE WOULD TALK WITH HIS FAMILY. PRIMARY RN NOTIFIED PHYSICIAN Initialized on 08/30/22 13:13 - END OF NOTE 08/30/22 10:38 Case Management Note by Crissy De Guzman PATIENT STILL ON BIPAP, CARDIAZEM DRIP AND ANTIBIOTICS AT THIS TIME. NO FAMILY AT BEDSIDE AT THIS TIME. WILL CONTINUE TO FOLLOW AND PROVIDE SUPPORT AND ASSIST IN ANY PLANNING FAMILY DESIRES Initialized on 08/30/22 10:38 - END OF NOTE 08/30/22 04:23 Nursing Note by Dottie Salazar Called pts son and spouse, no answer, let message to call back. called pts granddaughter amelia and notified her that pt had a decline in her condition. per amelia, she would notify the rest of her family. Initialized on 08/30/22 04:23 - END OF NOTE 08/30/22 03:18 Nursing Note by Dottie Salazar [id number] [employer] Project Manager called and notified Dr Draper that pt was back in afib with hr 120- 150s, per md millan to resume cardizem at this time. Initialized on 08/30/22 03:18 - END OF NOTE 08/29/22 21:46 Nursing Note by Dottie Salazar Pts lethargic and only respond to tactile stimulation. pt repositioned for comfort. call light within reach. will cont to monitor. Initialized on 08/29/22 21:46 - END OF NOTE 08/29/22 19:36 Nursing Note by Dottie Salazar 1900 'Received pt lying in bed on AVAP pts Mr Guerra at . Updated Mr Guerra on pts plan of care. answered all questions and concerns. Educated pt/family member on pts condition and treatment. White board updated. will cont to closely monitor. Initialized on 08/29/22 19:36 - END OF NOTE Code(s): J96.01 - ACUTE RESPIRATORY FAILURE WITH HYPOXIA; J96.02 - ACUTE RESPIRATORY FAILURE WITH HYPERCAPNIA (2) Sepsis Current Visit: Yes Status: Acute Qualifiers: Sepsis type: Pneumococcus Sepsis acute organ dysfunction status: with acute organ dysfunction Severe sepsis acute organ dysfunction type: acute respiratory failure Acute respiratory failure type: with hypoxia Severe sepsis shock status: with septic shock Qualified Code(s): A40.3 - Sepsis due to Streptococcus pneumoniae; R65.21 - Severe sepsis with septic shock; J96.01 - Acute respiratory failure with hypoxia (3) Hypokalemia Current Visit: Yes Status: Resolved Code(s): E87.6 - HYPOKALEMIA (4) New onset a-fib Current Visit: Yes Status: Acute Code(s): I48.91 - UNSPECIFIED ATRIAL FIBRILLATION (5) Pneumonia Current Visit: Yes Status: Acute Code(s): J18.9 - PNEUMONIA, UNSPECIFIED ORGANISM
[2022-08-30] MEDS ORDERED: solu-MEDROL 40 MG, Sterile H2O 10 ml 1 ML IV SCH ×2 (18:00)
[2022-08-30 19:48] VITALS: O2SAT 93
[2022-08-30] MEDS ORDERED: Maxipime 2 GM** 2 G in Sodium Chloride 100ML MINI-BAG PLUS 100 ML IV SCH (22:00)
[2022-08-31 00:19] VITALS: PULSE 97
--- NOTE | 2022-08-31 08:31 | PCM.DS ---
Discharge Summary Date of Admission: 08/25/22 23:40 Admitting Physician: LOYD RHODES MD Primary Care Provider: SACHIN CEDILLO Allergies Allergies azithromycin [From Zithromax Z-Ankit] Allergy (Severe, Verified 08/25/22 16:36) Tightness of Throat Penicillins Allergy (Severe, Verified 08/25/22 16:36) Tightness of Throat xanthan gum Allergy (Verified 08/25/22 16:36) xylitol Allergy (Verified 08/25/22 16:36) Hospital Summary - Hospital Course Hospital Course: Chief Complaint Diagnosis A-FIB, PNEUMONIA Admission Date Date 08/25/22 Allergies Allergy/AdvReac Type Severity Reaction Status Date / Time azithromycin Allergy Severe Tightness Verified 08/25/22 16:36 [From Zithromax Z-Ankit] of Throat Penicillins Allergy Severe Tightness Verified 08/25/22 16:36 of Throat xanthan gum Allergy Verified 08/25/22 16:36 xylitol Allergy Verified 08/25/22 16:36 Vital Signs (Last 24 hours) Temp Pulse Resp BP BP Pulse Ox 08/31/22 00:00 97 H 08/30/22 21:13 24 93 L 08/30/22 19:49 79 08/30/22 19:47 79 21 93 L 08/30/22 18:50 80 19 92 L 08/30/22 18:34 17 93 L 08/30/22 16:00 85 21 96 08/30/22 13:46 35 H 08/30/22 12:00 98.0 F 151 H 43 H 124/79 94 L 08/30/22 10:12 113 H 43 H 121/66 Current Medications Discontinued Medications Generic Name Dose Route Start Last Admin Trade Name Freq PRN Reason Stop Dose Admin Acetaminophen 650 mg 08/25/22 22:29 Acetaminophen 325 Mg Tablet PO 09/24/22 22:28 Q4H PRN PRN PAIN, FEVER, HEADACHE Acetaminophen 650 mg 08/26/22 00:31 Acetaminophen 325 Mg Tablet PO 09/25/22 00:30 Q4H PRN PRN PAIN, FEVER, HEADACHE Acetaminophen 650 mg 08/26/22 20:30 08/29/22 00:47 Acetaminophen 325 Mg Tablet PO 09/25/22 20:29 650 mg Q4H PRN PRN Administration PAIN AND/OR FEVER Albuterol/Ipratropium 3 ml 08/25/22 16:37 08/25/22 16:52 Ipratropium/Albuterol Sulfate 3 Ml Ampul.Neb IH 08/25/22 16:38 3 ml STAT ONE Administration Albuterol/Ipratropium Confirm 08/25/22 16:39 Ipratropium/Albuterol Sulfate 3 Ml Ampul.Neb Administered 08/25/22 16:40 Dose 3 ml IH .STK-MED ONE Albuterol/Ipratropium 3 ml 08/25/22 22:29 Ipratropium/Albuterol Sulfate 3 Ml Ampul.Neb IH 09/25/22 00:59 Q6HRT PRN SHORTNESS OF BREATH/WHEEZING Albuterol/Ipratropium Confirm 08/26/22 00:25 Ipratropium/Albuterol Sulfate 3 Ml Ampul.Neb Administered 08/26/22 00:26 Dose 3 ml IH .STK-MED ONE Albuterol/Ipratropium 3 ml 08/26/22 00:32 08/26/22 09:37 Ipratropium/Albuterol Sulfate 3 Ml Ampul.Neb 09/25/22 00:44 3 ml QID PRN PRN Administration SHORTNESS OF BREATH/WHEEZING Benzonatate 100 mg 08/25/22 23:00 Benzonatate 100 Mg Capsule PO 08/30/22 23:01 TID PRN LELA Benzonatate 100 mg 08/26/22 00:33 08/26/22 09:02 Benzonatate 100 Mg Capsule PO 09/25/22 00:32 100 mg TID PRN PRN Administration COUGH Benzonatate 100 mg 08/27/22 07:09 08/29/22 09:24 Benzonatate 100 Mg Capsule PO 09/26/22 07:08 100 mg TID PRN PRN Administration COUGH Calcium Carbonate 1 tab 08/26/22 14:00 08/30/22 09:59 Calcium Carbonate 500 Mg/Vitamin D 1 Tab Tablet PO 09/25/22 13:59 Not Given BID LELA Cefepime HCl Confirm 08/26/22 02:36 Cefepime Hcl 2 Gm Vial Administered 08/26/22 02:37 Dose 2 g .ROUTE .STK-MED ONE Clotrimazole 15 gm 08/26/22 14:00 08/30/22 09:59 Clotrimazole/Betamet Diprop 15 Gm Tube Cream TP 09/25/22 13:59 Not Given DAILY LELA Methylprednisolone Sodium 0 mg 08/27/22 22:00 08/30/22 05:18 Succinate 40 mg/ Sterile Water IV 09/26/22 21:59 40 mg 1 ml Q8HT LELA Administration Methylprednisolone Sodium 0 mg 08/30/22 18:00 Succinate 40 mg/ Sterile Water IV 09/29/22 17:59 1 ml Q12H [facility] Cyanocobalamin 1,000 mcg 08/26/22 22:00 08/30/22 10:00 Cyanocobalamin 500 Mcg Tablet PO 09/25/22 21:59 Not Given BID LELA Device 1 08/27/22 15:45 08/29/22 07:20 Therapuetic Drug Level Monitor Each IJ 08/27/22 15:46 Not Given 1XONLY ONE Device 1 08/30/22 08:30 08/30/22 09:45 Therapuetic Drug Level Monitor Each IJ 08/30/22 08:31 1 1XONLY ONE Administration Digoxin 0.25 mg 08/25/22 20:24 08/25/22 20:31 Digoxin 0.5 Mg/2 Ml Injection IV 08/25/22 20:25 0.25 mg STAT ONE Administration Digoxin Confirm 08/25/22 20:28 Digoxin 0.5 Mg/2 Ml Injection Administered 08/25/22 20:29 Dose 0.5 mg .ROUTE .STK-MED ONE Digoxin 0.25 mg 08/25/22 21:10 08/25/22 23:57 Digoxin 0.5 Mg/2 Ml Injection IV 08/25/22 21:11 Not Given STAT ONE Digoxin 0.25 mg 08/25/22 21:29 08/25/22 22:40 Digoxin 0.5 Mg/2 Ml Injection IV 08/25/22 21:30 Not Given STAT ONE Diltiazem HCl 10 mg 08/25/22 16:51 08/25/22 16:54 Diltiazem Hcl Iv 5 Mg/Ml Vial IV 08/25/22 16:52 10 mg STAT ONE Administration Diltiazem HCl Confirm 08/25/22 16:52 Diltiazem Hcl Iv 5 Mg/Ml Vial Administered 08/25/22 16:53 Dose 50 mg IV .STK-MED ONE Diltiazem HCl 10 mg 08/25/22 17:54 08/25/22 18:03 Diltiazem Hcl Iv 5 Mg/Ml Vial IV 08/25/22 17:55 10 mg STAT ONE Administration Diltiazem HCl 120 mg 08/27/22 15:00 08/27/22 14:56 Diltiazem Hcl Cd 120 Mg Cap.Sr.24h PO 09/26/22 14:59 120 mg DAILY LELA Administration Diltiazem HCl 5 mg 08/27/22 17:40 08/27/22 17:50 Diltiazem Hcl Iv 5 Mg/Ml Vial IV 08/27/22 17:41 5 mg ONCE ONE Administration Diltiazem HCl 120 mg 08/28/22 14:00 08/30/22 09:59 Diltiazem Hcl Cd 120 Mg Cap.Sr.24h PO 09/27/22 13:59 Not Given DAILY LELA Diphenhydramine HCl 25 mg 08/25/22 23:47 Diphenhydramine Hcl 25 Mg Capsule PO 09/24/22 23:46 Q6H PRN PRN ITCHING Diphenhydramine HCl 50 mg 08/26/22 13:21 Diphenhydramine Hcl 25 Mg Capsule PO 09/25/22 13:20 Q4-6HPRN PRN ALLERGIES Docusate Sodium 100 mg 08/25/22 22:29 Docusate Sodium 100 Mg Capsule PO 09/24/22 22:28 BIDPRN PRN CONSTIPATION Docusate Sodium 100 mg 08/26/22 00:34 08/26/22 09:02 Docusate Sodium 100 Mg Capsule PO 09/25/22 00:33 100 mg BIDPRN PRN Administration CONSTIPATION Docusate Sodium 100 mg 08/26/22 12:29 Docusate Sodium 100 Mg Capsule PO 09/25/22 12:28 BIDPRN PRN CONSTIPATION Doxycycline Hyclate Confirm 08/25/22 17:54 Doxycycline Hyclate 100 Mg/Vial Injection Administered 08/25/22 17:55 Dose 100 mg IV .STK-MED ONE Doxycycline Hyclate Confirm 08/26/22 02:36 Doxycycline Hyclate 100 Mg/Vial Injection Administered 08/26/22 02:37 Dose 100 mg IV .STK-MED ONE Enoxaparin Sodium 60 mg 08/25/22 22:04 08/25/22 22:56 Enoxaparin Sodium 60 Mg/0.6 Ml Syringe SQ 08/25/22 22:05 60 mg STAT ONE Administration Enoxaparin Sodium 60 mg 08/26/22 10:00 Enoxaparin Sodium 40 Mg/0.4 Ml Syringe SQ 09/25/22 09:59 BID LELA Enoxaparin Sodium 60 mg 08/26/22 10:00 08/26/22 09:02 Enoxaparin Sodium 60 Mg/0.6 Ml Syringe SQ 09/25/22 09:59 60 mg BID LELA Administration Enoxaparin Sodium 60 mg 08/26/22 22:00 08/30/22 09:45 Enoxaparin Sodium 60 Mg/0.6 Ml Syringe SQ 09/25/22 21:59 60 mg BID LELA Administration Furosemide 20 mg 08/26/22 21:13 08/25/22 21:36 Furosemide 20 Mg/Vial IV 08/26/22 21:14 20 mg ONCE ONE Administration Furosemide Confirm 08/25/22 21:34 Furosemide 20 Mg/Vial Administered 08/25/22 21:35 Dose 20 mg .ROUTE .STK-MED ONE Guaifenesin/Codeine Phosphate 5 ml 08/26/22 12:29 08/29/22 15:53 Guaifenesin/Codeine Phosphate 5 Ml Udcup PO 09/25/22 12:28 5 ml Q4H PRN PRN Administration COUGH Ceftriaxone Sodium/Dextrose 1 g in 50 mls @ 100 mls/hr 08/25/22 17:02 08/25/22 17:41 Rocephin 1 Gm-D5w 50 Ml Bag IV 08/25/22 17:31 Infused STAT STA Infusion Ceftriaxone Sodium/Dextrose Confirm 08/25/22 17:03 Rocephin 1 Gm-D5w 50 Ml Bag Administered 08/25/22 17:04 Dose 1 g in 50 mls @ ud IV .STK-MED ONE Doxycycline Hyclate 100 mg/ 100 mls @ 100 mls/hr 08/25/22 22:00 Dextrose IV 09/24/22 21:59 Q12HT LELA Doxycycline Hyclate 100 mg/ 100 mls @ 100 mls/hr 08/25/22 17:36 08/25/22 18:04 Dextrose IV 09/24/22 17:35 100 mls/hr Q12HT LELA Administration Dextrose Confirm 08/25/22 17:54 D5w 100ml Mini Bag 100 Ml Administered 08/25/22 17:55 Dose 100 mls @ ud IV .STK-MED ONE Diltiazem HCl 100 mls @ 5 mls/hr 08/25/22 18:37 08/25/22 20:43 Cardizem Drip 100 Mg/100 Ml D5w IV 09/24/22 18:36 10 mg/hr .Q20H PRN 10 mls/hr HEART RATE/ A-FIB Titration Protocol 5 MG/HR Cefepime HCl 2 g/ Dextrose 100 mls @ 200 mls/hr 08/25/22 22:45 08/26/22 07:21 IV 09/01/22 22:44 Not Given Q8H LELA Vancomycin HCl 1 gm/ Sodium 250 mls @ 125 mls/hr 08/25/22 23:00 08/26/22 07:22 Chloride IV 09/01/22 22:59 Not Given Q12H LELA Diltiazem HCl Confirm 08/25/22 19:09 Cardizem Drip 100 Mg/100 Ml D5w Administered 08/25/22 19:10 Dose 100 mls @ ud IV .STK-MED ONE Potassium Chloride/Sodium Chloride 1,000 mls @ 50 mls/hr 08/25/22 23:47 08/26/22 09:23 Sodium Chloride 0.9% W/ 20 Meq Kcl/Liter IV 08/26/22 09:46 50 mls/hr .Q20H LELA Infusion Diltiazem HCl 100 mls @ 5 mls/hr 08/26/22 00:34 Cardizem Drip 100 Mg/100 Ml D5w IV 09/25/22 00:33 .Q20H PRN HEART RATE/ A-FIB Protocol 5 MG/HR Cefepime HCl 2 g/ Dextrose 100 mls @ 200 mls/hr 08/26/22 01:15 08/26/22 03:22 IV 09/25/22 01:14 200 mls/hr Q8H LELA Administration Doxycycline Hyclate 100 mg/ 100 mls @ 100 mls/hr 08/26/22 02:00 08/26/22 0 5:05 Dextrose IV 09/25/22 01:59 100 mls/hr Q12HT LELA Administration Vancomycin HCl 1 gm in 200 mls @ 125 mls/hr 08/26/22 02:00 08/26/22 02:29 Vancomycin 1 Gram/200 Ml Bag IV 09/25/22 01:59 125 mls/hr Q12H LELA Administration Dextrose Confirm 08/26/22 02:37 D5w 100ml Mini Bag 100 Ml Administered 08/26/22 02:38 Dose 200 mls @ ud IV .STK-MED ONE Diltiazem HCl 100 mls @ 5 mls/hr 08/26/22 02:43 Cardizem Drip 100 Mg/100 Ml D5w IV 09/25/22 02:42 .Q20H PRN HEART RATE/ A-FIB Protocol 5 MG/HR Doxycycline Hyclate 100 mg/ 100 mls @ 100 mls/hr 08/26/22 22:00 Dextrose IV 09/25/22 21:59 Q12HT LELA Cefepime HCl 2 g/ Dextrose 100 mls @ 200 mls/hr 08/26/22 14:00 IV 09/25/22 13:59 Q8HT LELA Vancomycin HCl 1 gm in 200 mls @ 125 mls/hr 08/26/22 20:00 Vancomycin 1 Gram/200 Ml Bag IV 09/25/22 19:59 Q18H LELA Vancomycin HCl 1 gm in 200 mls @ 125 mls/hr 08/26/22 20:00 08/28/22 09:12 Vancomycin 1 Gram/200 Ml Bag IV 09/25/22 19:59 125 mls/hr Q18H LELA Administration Cefepime HCl 2 g/ Dextrose 100 mls @ 200 mls/hr 08/26/22 13:00 IV 09/25/22 12:59 Q12HT LELA Potassium Chloride/Sodium Chloride 1,000 mls @ 20 mls/hr 08/26/22 12:30 08/30/22 14:00 Sodium Chloride 0.9% W/ 20 Meq Kcl/Liter IV 09/25/22 12:29 Infused .Q24H LELA Infusion Cefepime HCl 2 g/ Sodium 100 mls @ 200 mls/hr 08/26/22 13:00 08/30/22 11:58 Chloride IV 09/25/22 12:59 200 mls/hr Q12HT LELA Administration Levofloxacin/Dextrose 750 mg in 150 mls @ 100 mls/hr 08/27/22 14:00 08/29/22 13:07 Levofloxacin 750mg/150ml D5w IV 09/26/22 13:59 100 mls/hr Q48H LELA Administration Diltiazem HCl 100 mls @ 5 mls/hr 08/27/22 18:52 08/30/22 06:00 Cardizem Drip 100 Mg/100 Ml D5w IV 09/26/22 18:51 0 mg/hr .Q20H PRN 0 mls/hr HEART RATE/ A-FIB Titration Protocol 5 MG/HR Sodium Chloride Confirm 08/27/22 21:51 Sodium Chloride 0.9% 1000 Ml Administered 08/27/22 21:52 Dose 1,000 mls @ ud .ROUTE .STK-MED ONE Vancomycin HCl 1 gm in 200 mls @ 133.333 mls/hr 08/28/22 21:00 08/30/22 09:45 Vancomycin 1 Gram/200 Ml Bag IV 09/27/22 20:59 133.333 mls/hr Q12H LELA Administration Diltiazem HCl Confirm 08/30/22 03:02 Cardizem Drip 100 Mg/100 Ml D5w Administered 08/30/22 03:03 Dose 100 mls @ ud IV .STK-MED ONE Cefepime HCl 2 g/ Sodium 100 mls @ 200 mls/hr 08/30/22 22:00 Chloride IV 09/29/22 21:59 Q12HT LELA Lorazepam 40 mg/ Dextrose 100 mls @ 2.5 mls/hr 08/30/22 14:00 08/30/22 13:45 IV 09/29/22 13:59 2.5 mls/hr .Q24H LELA 2.5 mls/hr Administration Protocol Insulin Human Regular 0 unit 08/25/22 22:29 Insulin Regular, Human 1 Unit SQ 09/24/22 22:28 UD PRN HYPERGLYCEMIA Insulin Human Regular 0 unit 08/26/22 00:39 Insulin Regular, Human 1 Unit SQ 09/25/22 00:38 UD PRN HYPERGLYCEMIA Insulin Human Regular 0 unit 08/26/22 12:30 Insulin Regular, Human 1 Unit SQ 09/25/22 12:29 UD PRN HYPERGLYCEMIA Loratadine 10 mg 08/26/22 10:00 Loratadine 10 Mg Tablet PO 09/25/22 09:59 DAILY LELA Lorazepam 1 mg 08/29/22 09:51 08/30/22 03:57 Lorazepam 2 Mg/1 Ml 2 Mg Vial IV 09/28/22 09:50 1 mg Q6H PRN PRN Administration ANXIETY Lorazepam 1 mg 08/30/22 09:39 08/30/22 10:12 Lorazepam 2 Mg/1 Ml 2 Mg Vial IV 09/29/22 09:37 1 mg Q4H PRN PRN Administration ANXIETY Lorazepam 1 mg 08/30/22 12:50 Lorazepam 2 Mg/1 Ml 2 Mg Vial IV 09/29/22 12:48 Q2H PRN PRN ANXIETY Magnesium Hydroxide 30 ml 08/25/22 22:29 Magnesium Hydroxide 30 Ml Udcup PO 09/24/22 22:28 HS PRN PRN CONSTIPATION Magnesium Hydroxide 30 ml 08/26/22 00:40 Magnesium Hydroxide 30 Ml Udcup PO 09/25/22 00:39 HS PRN PRN CONSTIPATION Metformin HCl 500 mg 08/26/22 16:30 08/30/22 08:34 Metformin Hcl 500 Mg Tablet PO 09/25/22 16:29 Not Given BIDAC LELA Methylprednisolone Sodium Succinate 40 mg 08/27/22 14:00 08/27/22 13:59 Methylprednisolone Sod Suc 40m 40 Mg/Ml Vial IV 09/26/22 13:59 40 mg Q8HT LELA Administration Methylprednisolone Sodium Succinate Confirm 08/28/22 12:27 Methylprednisolone Sod Suc 40m 40 Mg/Ml Vial Administered 08/28/22 12:28 Dose 40 mg .ROUTE .STK-MED ONE Metoprolol Tartrate 25 mg 08/25/22 22:36 08/26/22 07:21 Metoprolol Tartrate 25 Mg Tab PO 09/24/22 22:35 Not Given BID LELA Metoprolol Tartrate 25 mg 08/26/22 00:41 08/26/22 09:02 Metoprolol Tartrate 25 Mg Tab PO 09/25/22 00:40 25 mg BID LELA Administration Montelukast Sodium 10 mg 08/26/22 10:00 08/26/22 09:02 Montelukast Sodium 10 Mg Tablet PO 09/25/22 09:59 10 mg DAILY LELA Administration Montelukast Sodium 10 mg 08/26/22 14:00 08/30/22 10:00 Montelukast Sodium 10 Mg Tablet PO 09/25/22 13:59 Not Given DAILY LELA Morphine Sulfate 2 mg 08/30/22 05:56 08/30/22 10:31 Morphine Sulfate 2 Mg/Ml Inj IV 09/04/22 05:55 2 mg Q4H PRN PRN Administration PAIN Morphine Sulfate 2 mg 08/30/22 12:50 Morphine Sulfate 2 Mg/Ml Inj IV 09/04/22 12:49 Q2H PRN PRN PAIN Morphine Sulfate 30 mg 08/30/22 13:13 08/30/22 21:13 Morphine Sulfate * 1 Mg/Ml Syr IV 09/04/22 13:12 30 mg PRN PRN Administration PAIN Multivitamins/Minerals 1 tab 08/26/22 14:00 08/30/22 10:00 Beta-Carotene(A) W-C And E/Min 1 Tab Tablet PO 09/25/22 13:59 Not Given BID LELA Non-Formulary Medication 0.3 ml 08/26/22 13:21 Epinephrine [Epipen 2-Ankit] SQ UD PRN ALLERGIES Non-Formulary Medication 1 each 08/27/22 11:56 08/27/22 15:11 Pharmacy Dosing Request MC 08/27/22 11:57 1 each STAT ONE Administration Nystatin 5 ml 08/26/22 15:00 Nystatin 60 Ml Suspension Bottle PO 09/25/22 14:59 5XD [facility] Potassium Chloride 40 meq 08/25/22 21:59 08/25/22 22:19 Potassium Chloride Tab 10 Meq Tab PO 08/25/22 22:00 40 meq STAT ONE Administration Potassium Chloride Confirm 08/25/22 22:18 Potassium Chloride Tab 10 Meq Tab Administered 08/25/22 22:19 Dose 40 meq PO .STK-MED ONE Simvastatin 10 mg 08/26/22 14:00 08/30/22 10:00 Simvastatin 10 Mg Tablet PO 09/25/22 13:59 Not Given DAILY LELA Sterile Water Confirm 08/27/22 13:57 Water For Injection,Sterile 10 Ml Vial Administered 08/27/22 13:58 Dose 10 ml IJ .STK-MED ONE Tetrahydrozoline HCl 15 ml 08/26/22 14:00 08/28/22 09:47 Tetrahydrozoline Hcl 15 Ml Bottle Eye Drops OP 09/25/22 13:59 15 ml DAILY LELA Administration Tetrahydrozoline HCl 0 ml 08/29/22 07:45 Tetrahydrozoline Hcl 15 Ml Bottle Eye Drops OP 09/25/22 13:59 QIDPRN PRN Intake & Output (Last 24 hours) 08/28/22 08/29/22 08/30/22 08/31/22 11:59 11:59 11:59 11:59 Intake Total 3711 1200 2235 1653 Output Total 3300 1450 1700 550 Balance 411 -515 829 4468 Weight 57 kg Microbiology Results (Last 24 hours) 08/25/22 16:46 Blood Blood Culture Gram Stain - Final Not Reportable 08/25/22 16:46 Blood Blood Culture - Final NO GROWTH 08/25/22 17:50 Blood Blood Culture Gram Stain - Final Not Reportable 08/25/22 17:50 Blood Blood Culture - Final NO GROWTH Laboratory Results (Last 24 hours) 08/30/22 08/30/22 08/30/22 08:54 08:54 08:54 WBC 35.0 H* RBC 3.53 L Hgb 10.5 L Hct 31.3 L MCV 88.7 MCH 29.7 MCHC 33.5 RDW 12.8 Plt Count 626 H MPV 8.8 Segmented Neutrophils 94 H Lymphocytes (Manual) 3 L Monocytes (Manual) 3 Toxic Granulation 2+ Platelet Estimate INCREASED RBC Morphology NORMAL Sodium 136 L Potassium 4.1 Chloride 105 Carbon Dioxide 24 Anion Gap 11.0 BUN 23 H Creatinine 0.49 L Estimated GFR > 60.0 Glucose 259 H POC Glucometer Calcium 9.2 Total Bilirubin 0.40 AST 30 ALT 68 H Alkaline Phosphatase 81 Serum Total Protein 5.8 L Albumin 2.6 L Vancomycin Trough 16.83 08/30/22 08:50 WBC RBC Hgb Hct MCV MCH MCHC RDW Plt Count MPV Segmented Neutrophils Lymphocytes (Manual) Monocytes (Manual) Toxic Granulation Platelet Estimate RBC Morphology Sodium Potassium Chloride Carbon Dioxide Anion Gap BUN Creatinine Estimated GFR Glucose POC Glucometer 231 H Calcium Total Bilirubin AST ALT Alkaline Phosphatase Serum Total Protein Albumin Vancomycin Trough Orders (Last 24 hours) Category Date Time Status Recertification ROUTINE Admission 08/30/22 12:56 Completed POCT Glucose Check Q6H Care 08/30/22 15:00 Completed Laundry Routeman/Discharge Plan ROUTINE Cons 08/30/22 12:21 Completed NPO Diet 08/30/22 07:45 Completed Discharge Routine Discharge 08/31/22 01:45 Ordered CHEST 1 VIEW (PORTABLE) Routine Exams 08/30/22 09:40 Taken CBC W DIFF AM.LAB Lab 08/30/22 08:54 Completed CMP AM.LAB Lab 08/30/22 08:54 Completed Manual Differential NC Routine Lab 08/30/22 08:54 Completed POCT GLUCOSE Stat Lab 08/30/22 08:50 Completed Vancomycin, Trough Urgent Lab 08/30/22 08:54 Completed Cefepime HCl 2 gm [Maxipime 2 GM] 2 g Med 08/30/22 22:00 Discontinued NaCl 0.9% 100 ml Mini-Bag Plus [Sodium Chloride 100ML MINI-BAG PLUS] 100 ml IV Q12HT D5w 100 ml [D5w 100ML Mini Bag 100 ML] 80 ml Med 08/30/22 14:00 Discontinued Lorazepam 20 mg/10 ml Mdv [Ativan 20 MG/10 ML MDV ] 40 mg IV 2.5 mls/hr Lorazepam 2 mg/1 ml [Ativan 2 MG/1 ML VIAL] Med 08/30/22 12:50 Discontinued 1 mg IV Q2H PRN PRN Lorazepam 2 mg/1 ml [Ativan 2 MG/1 ML VIAL] Med 08/30/22 09:39 Discontinued 1 mg IV Q4H PRN PRN Methylprednisolone Sod Suc 40M [solu-MEDROL] 40 mg Med 08/30/22 18:00 Discontinued Water For Injection,Sterile [Sterile H2O 10 ml] 1 ml IV Q12H Morphine Sulfate * [Morphine [employer] 1 MG/ML] Med 08/30/22 13:13 Discontinued 30 mg IV PRN PRN Morphine Sulfate 2 mg Inj Med 08/30/22 12:50 Discontinued 2 mg IV Q2H PRN PRN Therapuetic Drug Level Monitor [Trough Drug Levels] Med 08/30/22 08:30 Discontinued 1 IJ 1XONLY ONE Patient Care Notes (Last 24 hours) 08/31/22 03:14 Discharge Note by Dottie Salazar Pt picked up by [facility] at this time. Initialized on 08/31/22 03:14 - END OF NOTE 08/31/22 02:06 Nursing Note by Dottie Salazar Mora cath, IV was discont. Initialized on 08/31/22 02:06 - END OF NOTE 08/31/22 02:01 Nursing Note by Dottie Salazar 0119 Pt was without all signs of life verified by 2 RN. Audelia. Pt was without pulse, resp, and/or any other signs of life. Pts family was present at bs. Pts family took pts purse and all personal belongings. Pts family member assisted with post mortem care. Dr Reddy was notified and ok body to be released to home. Family has decided that Barry [phone] should be notified. Morphine wasted with ALONSO Mckenzie 15ml Ativan wasted with ALONSO Mckenzie 60ml. Initialized on 08/31/22 02:01 - END OF NOTE 08/30/22 21:32 Nursing Note by Dottie Salazar 2100 Pt son arrived from [facility]. 2114 Family advised resume writer that they were ready for the bipap to be discontinued at this time. 2121 RT and RN at the bs. Pt oxygenation changed to 2l/nc at this time, per families request. RN remained with family, answered all questions and concerns. Family remained at bs. RN provided privacy, and advised family that nurse would be outside of the room for any additional question, concerns or support. Family agreed that the wanted time alone. 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 pt appears comfortable. family at bs. call light within reach. updated family on plan of care. addressed all questions and concerns from the family. family wishes are to not turn. white board updated. will cont to monitor pt and anticipate the family needs. Initialized on 08/30/22 19:43 - END OF NOTE 08/30/22 15:15 Respiratory Note by Zina Chen I SPOKE WITH THE AND AT THIS TIME HE PREFERS THAT THE PT STAYS ON THE BIPAP. THEY HAVE A FAMILY MEMBER TRAVELING HERE FROM [place] AND HE DOESN'T WANT HER TAKEN OFF UNTIL AFTER HE ARRIVES. AWARE THAT HE MAY CALL AT ANYTIME IF SHE CHANGES HIS MIND. NURSE ALSO AWARE OF HUSBANDS DECISION. Initialized on 08/30/22 15:15 - END OF NOTE 08/30/22 13:13 Case Management Note by Crissy De Guzman Addendum entered by Crissy De Guzman 08/30/22 13:42: LEONORA RN- PATIENT'S PRIMARY RN PRESENT FOR CONVERSATION WITH Original Note: S/W PATIENT'S ABOUT WISHES REGARDING PATIENT'S CARE. HE VOICED THAT HE DOES NOT WANT ANYTHING DONE TO PROLONG HER LIFE. WE DISCUSSED THAT PATIENT IS ON ANTIBIOTICS AND HEART MEDICATIONS TO TRY TO TREAT HER. HE VOICED THAT HE IS READY TO STOP THOSE TREATMENTS AND LET HER PASS NATURALLY. HE WAS NOTIFIED THAT BIPAP IS ALSO PROLONGING LIFE AT THIS TIME. WE DISCUSSED REMOVING THIS IF PATIENT REMAINS COMFORTABLE ON LOWER MEANS OF OXYGENATION. IN AGREEMENT AT THIS TIME. HE VOICED THAT HE CURRENTLY WOULD BE UNABLE TO PROVIDE HER WITH 24 HR CARE AT HOME. WILL CONTINUE TO PROVIDE SUPPORT FOR PATIENT AND FAMILY. GRANDDAUGHTER ALSO PRESENT FOR CONVERSATION BUT NOT INVOLVED. I OFFERED TO S/W ANY FAMILY MEMBERS FOR SPOUSE- HE DECLINED AND STATED HE WOULD TALK WITH HIS FAMILY. PRIMARY RN NOTIFIED PHYSICIAN Initialized on 08/30/22 13:13 - END OF NOTE 08/30/22 10:38 Case Management Note by Crissy De Guzman PATIENT STILL ON BIPAP, CARDIAZEM DRIP AND ANTIBIOTICS AT THIS TIME. NO FAMILY AT BEDSIDE AT THIS TIME. WILL CONTINUE TO FOLLOW AND PROVIDE SUPPORT AND ASSIST IN ANY PLANNING FAMILY DESIRES Initialized on 08/30/22 10:38 - END OF NOTE - Vitals & Intake/Output Vital Signs: Vital Signs Temperature 98.0 F 08/30/22 12:00 Pulse Rate 97 H 08/31/22 00:00 Respiratory Rate 24 08/30/22 21:13 Blood Pressure 124/79 08/30/22 12:00 O2 Sat by Pulse Oximetry 93 L 08/30/22 21:13 Intake & Output: Intake & Output 08/28/22 08/29/22 08/30/22 08/31/22 11:59 11:59 11:59 11:59 Intake Total 3711 1200 2235 1653 Output Total 3300 1450 1700 550 Balance 411 -903 511 6757 Weight 57 kg - Lab Result Diagrams: 08/30/22 08:54 08/30/22 08:54 Lab Results-Last 24 Hrs: Lab Results-Last 24 Hours 08/30/22 08/30/22 08/30/22 Range/Units 08:50 08:54 08:54 WBC 35.0 H* (4.0-10.5) x10^3/uL RBC 3.53 L (4.1-5.4) x10^6/uL Hgb 10.5 L (12.0-16.0) g/dL Hct 31.3 L (35-47) % MCV 88.7 (78-100) fL MCH 29.7 (26-32) pg MCHC 33.5 (32-36) g/dL RDW 12.8 (11.5-14.0) % Plt Count 626 H (150-450) x10^3/uL MPV 8.8 (7.5-11.0) fL Segmented Neutrophils 94 H (36.0-66.0) % Lymphocytes (Manual) 3 L (24-44) % Monocytes (Manual) 3 (0.0-12.0) % Toxic Granulation 2+ Platelet Estimate INCREASED (NORMAL) RBC Morphology NORMAL Sodium 136 L (137-145) mmol/L Potassium 4.1 (3.5-5.1) mmol/L Chloride 105 (98-107) mmol/L Carbon Dioxide 24 (22-30) mmol/L Anion Gap 11.0 (5-15) MEQ/L BUN 23 H (7-17) mg/dL Creatinine 0.49 L (0.52-1.04) mg/dL Estimated GFR > 60.0 ML/MIN Glucose 259 H (74-106) mg/dL POC Glucometer 231 H (74 to 106) mg/dL Calcium 9.2 (8.4-10.2) mg/dL Total Bilirubin 0.40 (0.2-1.3) mg/dL AST 30 (14-36) U/L ALT 68 H (0-35) U/L Alkaline Phosphatase 81 (38-126) U/L Serum Total Protein 5.8 L (6.3-8.2) g/dL Albumin 2.6 L (3.5-5.0) g/dL Vancomycin Trough (10-20) ug/mL 08/30/22 Range/Units 08:54 WBC (4.0-10.5) x10^3/uL RBC (4.1-5.4) x10^6/uL Hgb (12.0-16.0) g/dL Hct (35-47) % MCV (78-100) fL MCH (26-32) pg MCHC (32-36) g/dL RDW (11.5-14.0) % Plt Count (150-450) x10^3/uL MPV (7.5-11.0) fL Segmented Neutrophils (36.0-66.0) % Lymphocytes (Manual) (24-44) % Monocytes (Manual) (0.0-12.0) % Toxic Granulation Platelet Estimate (NORMAL) RBC Morphology Sodium (137-145) mmol/L Potassium (3.5-5.1) mmol/L Chloride (98-107) mmol/L Carbon Dioxide (22-30) mmol/L Anion Gap (5-15) MEQ/L BUN (7-17) mg/dL Creatinine (0.52-1.04) mg/dL Estimated GFR ML/MIN Glucose (74-106) mg/dL POC Glucometer (74 to 106) mg/dL Calcium (8.4-10.2) mg/dL Total Bilirubin (0.2-1.3) mg/dL AST (14-36) U/L ALT (0-35) U/L Alkaline Phosphatase (38-126) U/L Serum Total Protein (6.3-8.2) g/dL Albumin (3.5-5.0) g/dL Vancomycin Trough 16.83 (10-20) ug/mL Micro Results-Entire Visit: Microbiology 08/25/22 16:46 Blood Culture Gram Stain - Final Blood Not Reportable Blood Culture - Final NO GROWTH 08/25/22 17:50 Blood Culture Gram Stain - Final Blood Not Reportable Blood Culture - Final NO GROWTH 08/25/22 17:30 Urine Culture - Final Urine, Void NO GROWTH - Radiology Exams Ordered Rad Exams-Entire Visit: Radiology Procedures Category Date Time Status CHEST 1 VIEW (PORTABLE) Routine Exams 08/30/22 09:40 Taken - Procedures and Test Procedures and Tests throughout Hospitalization: Therapy Orders & Screens 08/25/22 17:03 Respiratory Therapy Assessment DAILY Comment: 08/26/22 01:02 Respiratory Therapy Assessment DAILY Comment: Diagnosis: Shortness of breath, cough 08/26/22 01:03 Oxygen Oxymizer LPM 15 lpm Comment: Diagnosis: Shortness of breath, cough 08/26/22 12:31 Respiratory Therapy Consult ROUTINE Comment: Reason For Exam: Diagnosis: pneumonia, new onset afib 08/27/22 22:05 BiPap/CPAP ROUTINE Comment: Diagnosis: A-FIB, PNEUMONIA 08/29/22 11:51 Oxygen High Flow per RT 50% Comment: Diagnosis: A-FIB, PNEUMONIA Discharge Exam Respiratory Exam: other (no respiration) Cardiovascular Exam: other (no pulse) Final Diagnosis/Problem List - Final Discharge Diagnosis/Problem (1) Acute respiratory failure with hypoxia and hypercapnia Status: Acute Code(s): J96.01 - ACUTE RESPIRATORY FAILURE WITH HYPOXIA; J96.02 - ACUTE RESPIRATORY FAILURE WITH HYPERCAPNIA (2) Sepsis Status: Acute (3) Hypokalemia Status: Resolved Code(s): E87.6 - HYPOKALEMIA (4) New onset a-fib Status: Acute Code(s): I48.91 - UNSPECIFIED ATRIAL FIBRILLATION (5) Pneumonia Status: Acute Code(s): J18.9 - PNEUMONIA, UNSPECIFIED ORGANISM - Discharge Discharge Date: 08/31/22 Disposition: Condition: Prescriptions: No Action Clotrimazole/Betamethasone Dip [Clotrimazole-Betamethasone Crm] 15 gm TP DAILY Tetrahydrozoline HCl [Eye Drops] 15 ml OP DAILY Diphenhydramine HCl 25 mg [Benadryl 25 mg Capsule] 50 mg PO Q4-6HPRN PRN PRN Reason: Allergies Nystatin 500,000 unit PO 5XD Montelukast Sodium 10 mg PO DAILY EPINEPHrine [Epipen] 0.3 ml SQ UD PRN PRN Reason: Allergies Vit C/E/Zn/Coppr/Lutein/Zeaxan [Preservision Areds 2 Softgel] 1 cap PO BID Mecobalamin [B12 Active] 1 tab PO BID Metformin HCl 500 mg [Glucophage 500 MG] 1 tab PO BID Calcium Carb, Citrate/Vit D3 [Calcium + D3 ER Tablet] 1 tab PO BID Simvastatin 10 mg [Zocor 10MG] 1 tab PO DAILY Instructions: Pneumonia, Adult (DC) Follow up with: SACHIN CEDILLO [Primary Care Provider] -
== END 2022-08-31 03:20 | disposition expired | DRG 189 ==
LOC: ED 16:11 → ICU 23:40 → MED SURG 08-26 12:20 → ICU 08-27 19:00
PROVIDERS: ADMIT Internal Medicine; ATTEND General Practice
DX: J96.01 Acute respiratory failure with hypoxia (principal); A41.9 Sepsis, unspecified organism; J18.9 Pneumonia, unspecified organism; I48.20 Chronic atrial fibrillation, unspecified; J96.02 Acute respiratory failure with hypercapnia; E87.6 Hypokalemia; E11.9 Type 2 diabetes mellitus without complications; E78.5 Hyperlipidemia, unspecified; Z79.899 Other long term (current) drug therapy; Z20.828 Contact with and (suspected) exposure to other viral communicable diseases
CPT/HCPCS: 0241U; 36415; 36600; 71045; 71260; 80048; 80053; 80202; 81001; 82375; 82803; 82947; 83036; 83605; 83880; 84145; 84443; 84484; 85025; 85379; 85610; 85730; 87040; 87086; 93005; 94002; 94003; 94640; 94762; 96365; 96367; 96372; 96374; 96375; 99285; 99291; J0692; J0696; J1160; J1650; J1940; J1956; J2060; J2270; J2920; A9270-GY; J3370